=== PATIENT | male | born 1940 | race Caucasian/White ===

== ENCOUNTER 2021-08-04 14:23 | Inpatient (IN) | payer OTHER, MEDICARE ==
[2021-08-04] MEDS ORDERED: SODIUM CHLORIDE 0.9% 500 ML 500 ML IV STA (15:22)
--- NOTE | 2021-08-04 15:38 | ED ---
General Adult HPI - General Chief complaint: Weakness Stated complaint: weakness Source: patient, EMS, RN notes reviewed, old records reviewed Mode of arrival: EMS Limitations: no limitations - History of Present Illness Initial comments: 80-year-old male who had presented for evaluation of poor appetite, increased weakness. This is been present over the past one week. This history is obtained from the nurse and the paramedics taking care of this patient. Apparently he has been exposed to coronavirus. Patient himself denies complaints. No chest pain or abdominal pain. No vomiting or diarrhea. - Related Data Home Medications Medication Instructions Recorded Confirmed Aspirin EC [Ecotrin] 325 mg PO DAILY 10/15/14 08/04/21 Finasteride [Proscar] 5 mg PO DAILY 10/15/14 08/04/21 Lovastatin [Mevacor] 40 mg PO HS 10/15/14 08/04/21 Cholecalciferol [Vitamin D3 (25 25 mcg PO DAILY 08/04/21 08/04/21 Mcg = 1000 Iu)] Divalproex ER [Depakote ER] 500 mg PO HS 08/04/21 08/04/21 Donepezil HCl [Aricept] 10 mg PO HS 08/04/21 08/04/21 Allergies Allergy/AdvReac Type Severity Reaction Status Date / Time No Known Allergies Allergy Verified 08/04/21 16:21 Review of Systems ROS Statement: Those systems with pertinent positive or pertinent negative responses have been documented in the HPI. ROS Other: All systems not noted in ROS Statement are negative. Past Medical History Past Medical History: Hyperlipidemia, Prostate Disorder History of Any Multi-Drug Resistant Organisms: None Reported Additional Past Surgical History / Comment(s): bilateral foot surgery Past Psychological History: No Psychological Hx Reported Smoking Status: Never smoker Past Alcohol Use History: None Reported Past Drug Use History: None Reported General Exam Limitations: no limitations General appearance: alert, in no apparent distress Head exam: Present: atraumatic, normocephalic Eye exam: Present: normal appearance, PERRL ENT exam: Present: normal exam Neck exam: Present: normal inspection. Absent: meningismus Respiratory exam: Present: normal lung sounds bilaterally. Absent: respiratory distress, wheezes Cardiovascular Exam: Present: regular rate, normal rhythm GI/Abdominal exam: Present: soft. Absent: distended, tenderness, guarding Extremities exam: Present: normal inspection, normal capillary refill. Absent: pedal edema, calf tenderness Neurological exam: Present: alert. Absent: motor sensory deficit Psychiatric exam: Present: normal affect, normal mood Skin exam: Present: warm, dry, intact. Absent: cyanosis, diaphoretic Course Vital Signs 08/04/21 08/04/21 14:24 15:33 Temperature 98.2 F Pulse Rate 75 67 Respiratory 18 18 Rate Blood Pressure 141/77 137/77 O2 Sat by Pulse 98 96 Oximetry EKG Findings - EKG Comments: EKG Findings:: EKG: Normal sinus rhythm, rate of 74, SC interval 178, QRS duration 96, QTC 455, no ST segment elevation. Medical Decision Making - Medical Decision Making 80-year-old male with generalized weakness, fatigue, positive contact with coronavirus. Patient does test positive for coronavirus. I will infuse monoclonal antibodies for this patient. He is on room air without respiratory distress. He does not have anyone at home. Care for him currently. He will be placed in observation awaiting ultimate disposition for this patient with dementia, generalized weakness and inability to care for himself. Case discussed with Dr. Amaro who will admit. - Lab Data Result diagrams: 08/04/21 15:42 08/04/21 15:42 Lab Results 08/04/21 08/04/21 08/04/21 Range/Units 15:42 15:42 15:42 WBC 5.4 (3.8-10.6) k/uL RBC 4.13 L (4.30-5.90) m/uL Hgb 12.9 L (13.0-17.5) gm/dL Hct 38.8 L (39.0-53.0) % MCV 93.9 (80.0-100.0) fL MCH 31.3 (25.0-35.0) pg MCHC 33.3 (31.0-37.0) g/dL RDW 12.6 (11.5-15.5) % Plt Count 256 (150-450) k/uL MPV 7.7 Neutrophils % 71 % Lymphocytes % 19 % Monocytes % 6 % Eosinophils % 0 % Basophils % 1 % Neutrophils # 3.9 (1.3-7.7) k/uL Lymphocytes # 1.0 (1.0-4.8) k/uL Monocytes # 0.3 (0-1.0) k/uL Eosinophils # 0.0 (0-0.7) k/uL Basophils # 0.0 (0-0.2) k/uL PT 10.5 (9.0-12.0) sec INR 1.0 (<1.2) APTT 27.6 (22.0-30.0) sec Sodium 135 L (137-145) mmol/L Potassium 4.4 (3.5-5.1) mmol/L Chloride 103 (98-107) mmol/L Carbon Dioxide 23 (22-30) mmol/L Anion Gap 9 mmol/L BUN 28 H (9-20) mg/dL Creatinine 0.83 (0.66-1.25) mg/dL Est GFR (CKD-EPI)AfAm >90 (>60 ml/min/1.73 sqM) Est GFR (CKD-EPI)NonAf 84 (>60 ml/min/1.73 sqM) Glucose 84 (74-99) mg/dL Plasma Lactic Acid Tawanda (0.7-2.0) mmol/L Calcium 7.9 L (8.4-10.2) mg/dL Magnesium 2.2 (1.6-2.3) mg/dL Total Bilirubin 0.5 (0.2-1.3) mg/dL AST 40 (17-59) U/L ALT 19 (4-49) U/L Alkaline Phosphatase 56 (38-126) U/L Troponin I (0.000-0.034) ng/mL Total Protein 5.9 L (6.3-8.2) g/dL Albumin 3.0 L (3.5-5.0) g/dL Coronavirus (PCR) (Not Detectd) 08/04/21 08/04/21 08/04/21 Range/Units 15:42 15:42 15:42 WBC (3.8-10.6) k/uL RBC (4.30-5.90) m/uL Hgb (13.0-17.5) gm/dL Hct (39.0-53.0) % MCV (80.0-100.0) fL MCH (25.0-35.0) pg MCHC (31.0-37.0) g/dL RDW (11.5-15.5) % Plt Count (150-450) k/uL MPV Neutrophils % % Lymphocytes % % Monocytes % % Eosinophils % % Basophils % % Neutrophils # (1.3-7.7) k/uL Lymphocytes # (1.0-4.8) k/uL Monocytes # (0-1.0) k/uL Eosinophils # (0-0.7) k/uL Basophils # (0-0.2) k/uL PT (9.0-12.0) sec INR (<1.2) APTT (22.0-30.0) sec Sodium (137-145) mmol/L Potassium (3.5-5.1) mmol/L Chloride (98-107) mmol/L Carbon Dioxide (22-30) mmol/L Anion Gap mmol/L BUN (9-20) mg/dL Creatinine (0.66-1.25) mg/dL Est GFR (CKD-EPI)AfAm (>60 ml/min/1.73 sqM) Est GFR (CKD-EPI)NonAf (>60 ml/min/1.73 sqM) Glucose (74-99) mg/dL Plasma Lactic Acid Tawanda 1.1 (0.7-2.0) mmol/L Calcium (8.4-10.2) mg/dL Magnesium (1.6-2.3) mg/dL Total Bilirubin (0.2-1.3) mg/dL AST (17-59) U/L ALT (4-49) U/L Alkaline Phosphatase (38-126) U/L Troponin I <0.012 (0.000-0.034) ng/mL Total Protein (6.3-8.2) g/dL Albumin (3.5-5.0) g/dL Coronavirus (PCR) Detected A (Not Detectd) Disposition Clinical Impression: Dehydration, COVID-19 Disposition: ADMITTED IP TO THIS [facility] Condition: Stable Is patient prescribed a controlled substance at d/c from ED?: No Referrals: Rm Patel DO [Primary Care Provider] - 1-2 days Decision to Admit Reason: Admit from [facility] Decision Date: 08/04/21 Decision Time: 17:01
[2021-08-04 15:52] LABS: Basophils % (A) 1 %; Eosinophils % (A) 0 %; HCT 38.8 % (39.0-53.0); HGB 12.9 gm/dL (13.0-17.5); Lymphocytes % (A) 19 %; MCH 31.3 pg (25.0-35.0); MCHC 33.3 g/dL (31.0-37.0); MCV 93.9 fL (80.0-100.0); Mean Platelet Volume 7.7; Monocytes # (A) 0.3 k/uL (0-1.0); Monocytes % (A) 6 %; Neutrophils # (A) 3.9 k/uL (1.3-7.7); Neutrophils % (A) 71 %; Platelet Count 256 k/uL (150-450); RBC 4.13 m/uL (4.30-5.90); RDW 12.6 % (11.5-15.5); WBC 5.4 k/uL (3.8-10.6)
--- NOTE | 2021-08-04 15:55 | XR ---
EXAMINATION TYPE: XR chest 2V DATE OF EXAM: 08/04/2021 COMPARISON: Chest x-ray February 04, 2015 HISTORY: Weakness. TECHNIQUE: Frontal and lateral views of the chest are obtained. FINDINGS: There is some reticular interstitial prominence bilaterally. No suspicious pleural effusio n or pneumothorax seen. Faint increased opacities in the periphery right midlung and bibasilar region noted. The cardiac silhouette size is mildly enlarged. The osseous structures are intact. IMPRESSION: Mild cardiomegaly with new mild interstitial prominence. Cannot exclude mild interstitia l edema. New Faint opacities in the lung bases and periphery right midlung raise concern for covid-19 infection in the current environment. Correlate clinically.
[2021-08-04 16:03] LABS: ALT 19 U/L (4-49); AST 40 U/L (17-59); African American GFR (CKD) >90 (>60 ml/min/1.73 sqM); Alkaline Phosphatase 56 U/L (38-126); Anion Gap 9 mmol/L; Blood Urea Nitrogen 28 mg/dL (9-20); Calcium 7.9 mg/dL (8.4-10.2); Carbon Dioxide 23 mmol/L (22-30); Chloride 103 mmol/L (98-107); Glucose 84 mg/dL (74-99); Magnesium 2.2 mg/dL (1.6-2.3); Non-African American GFR(CKD) 84 (>60 ml/min/1.73 sqM); Partial Thromboplastin Time 27.6 sec (22.0-30.0); Potassium 4.4 mmol/L (3.5-5.1); Prothrombin Time 10.5 sec (9.0-12.0); Sodium 135 mmol/L (137-145); Total Bilirubin 0.5 mg/dL (0.2-1.3); Total Protein 5.9 g/dL (6.3-8.2)
[2021-08-04] MEDS ORDERED: NALOXONE 0.4 MG/ML 1 ML VIAL IV PRN (16:58)
[2021-08-04] MEDS ORDERED: ACETAMINOPHEN TAB 325 MG TAB PO PRN (16:58)
[2021-08-04 17:12] LABS: Appearance,Urine Clear (Clear); Bilirubin,Urine Negative (Negative); Blood,Urine Trace (Negative); Color,Urine Yellow; Glucose,Urine (UA) Negative (Negative); Hyaline Casts,Urine 1 /lpf (0-2); Ketones,Urine 2+ (Negative); Leukocyte Esterase,Urine Negative (Negative); Mucus,Urine Many /hpf; Nitrite,Urine Negative (Negative); PH, Urine 5.5 (5.0-8.0); Protein,Urine 1+ (Negative); RBC,Urine 3 /hpf (0-5); Specific Gravity,Urine 1.035 (1.001-1.035); Squamous Epithelial Cell,Urine <1 /hpf (0-4); WBC,Urine 6 /hpf (0-5)
[2021-08-04] MEDS ORDERED: SODIUM CHLORIDE 0.9% 50 ML IVPB ONE (17:30)
[2021-08-04] MEDS ORDERED: CASIRIVIMAB/IMDEVIMAB (EUA) 1,200 MG in SODIUM CHLORIDE 0.9% 100 ML IVPB ONE (17:30)
[2021-08-04] MEDS: SODIUM CHLORIDE 0.9% 1,000 ML IV SCH (18:31)
[2021-08-04] MEDS: DIVALPROEX ER 500 MG TAB.ER.24H PO SCH (21:21)
[2021-08-04] MEDS: ATORVASTATIN 10 MG TAB PO SCH (21:21)
[2021-08-04] MEDS: DONEPEZIL 10 MG TAB PO SCH (21:21)
[2021-08-04] MEDS ORDERED: QUEtiapine 25 MG TAB PO STA (23:32)
[2021-08-05] MEDS ORDERED: HALOPERIDOL LACTATE 5 MG/ML 1 ML VIAL IM STA ×2 (01:45→03:40)
[2021-08-05] MEDS: SODIUM CHLORIDE 0.9% 1,000 ML IV SCH ×2 (06:34→16:16)
--- NOTE | 2021-08-05 15:47 | P.HPIM ---
History of Present Illness 80-year-old male with with advanced dementia was brought in because of generalized weakness. Patient the is not requiring oxygen but. Is found to have COVID-19 positive patient's family members are all positive for Covid 19 I'm unable to get any History from the patient. Patient doesn't have any fever chills patient is completely confused alert oriented 1. Although regarding code perspective patient doesn't need to stay in hospital unfortunately patient cannot take care of himself at home and all his family members are sick and hospitalized and there is no one else to take care of this patient. 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 REVIEW OF SYSTEMS: Unable to obtain due to his clinical condition PHYSICAL EXAMINATION: GENERAL: The patient is alert and oriented x1, not in any acute distress. Well developed, well nourished. HEENT: Pupils are round and equally reacting to light. EOMI. No scleral icterus. No conjunctival pallor. Normocephalic, atraumatic. No pharyngeal erythema. No thyromegaly. CARDIOVASCULAR: S1 and S2 present. No murmurs, rubs, or gallops. PULMONARY: Chest is clear to auscultation, no wheezing or crackles. ABDOMEN: Soft, nontender, nondistended, normoactive bowel sounds. No palpable organomegaly. MUSCULOSKELETAL: No joint swelling or deformity. EXTREMITIES: No cyanosis, clubbing, or pedal edema. NEUROLOGICAL: Generalized weakness and dementia confused this is his baseline SKIN: No rashes. Assessment and plan -Generalized weakness unable to take care of himself at home: PT and OT will evaluate the patient's transition social worker will evaluate the home situation. -Covid 19 pneumonia patient is currently not hypoxic will not require any systemic steroids patient will be started on Covid vitamins although chest x- ray did show pneumonia. Patient did receive monoclonal antibody infusion -Benign prostatic hypertrophy -Hyperlipidemia -Dementia appears to be advanced either Alzheimer's or vascular dementia DVT prophylaxis: Lovenox Past Medical History Past Medical History: Hyperlipidemia, Prostate Disorder History of Any Multi-Drug Resistant Organisms: None Reported Additional Past Surgical History / Comment(s): bilateral foot surgery Past Psychological History: No Psychological Hx Reported Smoking Status: Former smoker Past Alcohol Use History: None Reported Additional Past Alcohol Use History / Comment(s): Pt states he smoked over 40 years ago. Past Drug Use History: None Reported Medications and Allergies Home Medications Medication Instructions Recorded Confirmed Type Aspirin EC [Ecotrin] 325 mg PO DAILY 10/15/14 08/04/21 History Finasteride [Proscar] 5 mg PO DAILY 10/15/14 08/04/21 History Lovastatin [Mevacor] 40 mg PO HS 10/15/14 08/04/21 History Cholecalciferol [Vitamin D3 (25 25 mcg PO DAILY 08/04/21 08/04/21 History Mcg = 1000 Iu)] Divalproex ER [Depakote ER] 500 mg PO HS 08/04/21 08/04/21 History Donepezil HCl [Aricept] 10 mg PO HS 08/04/21 08/04/21 History Allergies Allergy/AdvReac Type Severity Reaction Status Date / Time No Known Allergies Allergy Verified 08/04/21 16:21 Physical Exam Vitals: Vital Signs Temp Pulse Pulse Resp BP BP BP 08/05/21 07:00 99.5 F 90 20 151/78 08/05/21 02:00 98.9 F 84 18 136/74 08/05/21 00:55 19 08/04/21 20:00 98.4 F 72 19 143/70 08/04/21 19:48 20 08/04/21 19:11 98.9 F 68 20 136/82 Pulse Ox 08/05/21 07:00 93 L 08/05/21 02:00 94 L 08/05/21 00:55 08/04/21 20:00 95 08/04/21 19:48 08/04/21 19:11 98 Intake and Output 08/05/21 08/05/21 08/05/21 06:59 14:59 22:59 Other: Voiding Method Toilet Toilet Urinal Urinal # Voids 1 # Bowel Movements 1 Results CBC & Chem 7: 08/04/21 15:42 08/04/21 15:42 Labs: Abnormal Lab Results - Last 24 Hours (Table) 08/04/21 08/04/21 08/04/21 Range/Units 15:42 15:42 15:42 RBC 4.13 L (4.30-5.90) m/uL Hgb 12.9 L (13.0-17.5) gm/dL Hct 38.8 L (39.0-53.0) % Sodium 135 L (137-145) mmol/L BUN 28 H (9-20) mg/dL Calcium 7.9 L (8.4-10.2) mg/dL Total Protein 5.9 L (6.3-8.2) g/dL Albumin 3.0 L (3.5-5.0) g/dL Urine Protein 1+ H (Negative) Urine Ketones 2+ H (Negative) Urine Blood Trace H (Negative) Urine WBC 6 H (0-5) /hpf Urine Mucus Many H (None) /hpf Coronavirus (PCR) (Not Detectd) 08/04/21 Range/Units 15:42 RBC (4.30-5.90) m/uL Hgb (13.0-17.5) gm/dL Hct (39.0-53.0) % Sodium (137-145) mmol/L BUN (9-20) mg/dL Calcium (8.4-10.2) mg/dL Total Protein (6.3-8.2) g/dL Albumin (3.5-5.0) g/dL Urine Protein (Negative) Urine Ketones (Negative) Urine Blood (Negative) Urine WBC (0-5) /hpf Urine Mucus (None) /hpf Coronavirus (PCR) Detected A (Not Detectd) Thrombosis Risk Factor Assmnt - Choose All That Apply Each Factor Represents 1 point: Obesity (BMI >25) Each Risk Factor Represents 3 Points: Age 75 years or older Thrombosis Risk Factor Assessment Total Risk Factor Score: 4 Thrombosis Risk Factor Assessment Level: Moderate Risk
[2021-08-05] MEDS: ASCORBIC ACID 500 MG TAB PO SCH (20:54)
[2021-08-05] MEDS: DIVALPROEX ER 500 MG TAB.ER.24H PO SCH (20:54)
[2021-08-05] MEDS: ATORVASTATIN 10 MG TAB PO SCH (20:54)
[2021-08-05] MEDS: DONEPEZIL 10 MG TAB PO SCH (20:54)
[2021-08-05] MEDS: QUEtiapine 25 MG TAB PO PRN (20:55)
[2021-08-06] MEDS: ASPIRIN 325 MG TAB PO SCH (08:41)
[2021-08-06] MEDS: CHOLECALCIFEROL 25 MCG (1000 IU) TABLET PO SCH (08:41)
[2021-08-06] MEDS: ASCORBIC ACID 500 MG TAB PO SCH ×2 (08:42→21:40)
[2021-08-06] MEDS: FINASTERIDE 5 MG TAB PO SCH (08:42)
[2021-08-06] MEDS: ENOXAPARIN 40 MG/0.4 ML SYRINGE SQ SCH (08:42)
[2021-08-06] MEDS: ZINC SULFATE 220 MG CAP PO SCH (08:42)
[2021-08-06] MEDS: SODIUM CHLORIDE 0.9% 1,000 ML IV SCH ×2 (08:43→22:20)
--- NOTE | 2021-08-06 12:01 | P.PN ---
Subjective Progress Note Date: 08/06/21 80-year-old male with with advanced dementia was brought in because of generalized weakness. Patient the is not requiring oxygen but. Is found to have COVID-19 positive patient's family members are all positive for Covid 19 I'm unable to get any History from the patient. Patient doesn't have any fever chills patient is completely confused alert oriented 1. Although regarding code perspective patient doesn't need to stay in hospital unfortunately patient cannot take care of himself at home and all his family members are sick and hospitalized and there is no one else to take care of this patient. 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 08/06/2021 Patient is evaluated today resting in the bed. He denies any shortness of breath or cough. He is alert times person and place however he is unable to state the time. He does note that he came into the hospital because a Covid infection. There are no labs available for today, we will recheck in the morning. He is afebrile, blood pressure 165/85 he is 93% on room air. He is 81 heart rate sinus rhythm. There is no wheezing noted on examination patient does not appear to be in any acute distress. REVIEW OF SYSTEMS: Unable to obtain full review of systems PHYSICAL EXAMINATION: GENERAL: The patient is alert and oriented x2, not in any acute distress. Well developed, well nourished. HEENT: Pupils are round and equally reacting to light. EOMI. No scleral icterus. No conjunctival pallor. Normocephalic, atraumatic. No pharyngeal erythema. No thyromegaly. CARDIOVASCULAR: S1 and S2 present. No murmurs, rubs, or gallops. PULMONARY: Chest is clear to auscultation, no wheezing or crackles. ABDOMEN: Soft, nontender, nondistended, normoactive bowel sounds. No palpable organomegaly. MUSCULOSKELETAL: No joint swelling or deformity. EXTREMITIES: No cyanosis, clubbing, or pedal edema. NEUROLOGICAL: Generalized weakness and dementia confused this is his baseline SKIN: No rashes. Assessment and plan -Generalized weakness unable to take care of himself at home: PT and OT will evaluate the patient's social services technician will evaluate the home situation. -Covid 19 pneumonia patient is currently not hypoxic, Patient did receive monoclonal antibody infusion. Chest xray did show pneumonia consistent with COVID-19 pneumonia. -Benign prostatic hypertrophy -Hyperlipidemia -Dementia appears to be advanced either Alzheimer's or vascular dementia DVT prophylaxis: Lovenox Objective - Vital Signs Vital signs: Vital Signs Temp 97.5 F L 08/06/21 07:00 Pulse 81 08/06/21 07:00 Resp 18 08/06/21 07:00 BP 165/85 08/06/21 07:00 Pulse Ox 93 L 08/06/21 07:00 Intake & Output 08/05/21 08/06/21 08/06/21 18:59 06:59 18:59 Intake Total 118 Balance 118 Intake: Oral 118 Other: Voiding Method Toilet Toilet Urinal Diaper # Voids 20 5 1 - Labs CBC & Chem 7: 08/04/21 15:42 08/04/21 15:42 Assessment and Plan Time with Patient: Greater than 30
[2021-08-06] MEDS: ATORVASTATIN 10 MG TAB PO SCH (21:40)
[2021-08-06] MEDS: DIVALPROEX ER 500 MG TAB.ER.24H PO SCH (21:40)
[2021-08-06] MEDS: QUEtiapine 25 MG TAB PO PRN (21:41)
[2021-08-06] MEDS: DONEPEZIL 10 MG TAB PO SCH (21:41)
[2021-08-07 04:13] VITALS: RESP 16; TEMP 97.6
[2021-08-07 06:26] LABS: Potassium 4.1 mmol/L (3.5-5.1)
[2021-08-07 06:27] LABS: African American GFR (CKD) >90 (>60 ml/min/1.73 sqM); Anion Gap 6 mmol/L; Blood Urea Nitrogen 29 mg/dL (9-20); Calcium 8.4 mg/dL (8.4-10.2); Carbon Dioxide 23 mmol/L (22-30); Chloride 113 mmol/L (98-107); Glucose 98 mg/dL (74-99); Non-African American GFR(CKD) 83 (>60 ml/min/1.73 sqM); Sodium 142 mmol/L (137-145)
[2021-08-07] MEDS: ASPIRIN 325 MG TAB PO SCH (08:12)
[2021-08-07] MEDS: CHOLECALCIFEROL 25 MCG (1000 IU) TABLET PO SCH (08:13)
[2021-08-07] MEDS: ASCORBIC ACID 500 MG TAB PO SCH (08:13)
[2021-08-07] MEDS: ENOXAPARIN 40 MG/0.4 ML SYRINGE SQ SCH (08:13)
[2021-08-07] MEDS: ZINC SULFATE 220 MG CAP PO SCH (08:13)
[2021-08-07] MEDS: FINASTERIDE 5 MG TAB PO SCH (08:13)
--- NOTE | 2021-08-07 08:29 | XR ---
EXAMINATION TYPE: XR chest 2V DATE OF EXAM: 08/07/2021 COMPARISON: 08/04/2021 TECHNIQUE: PA and lateral views submitted. HISTORY: Shortness of breath FINDINGS: Coarsened interstitium. Mild hyperinflation correlate for COPD. No pleural effusion or pneumothorax. Heart size normal. Atherosclerotic change aorta. Arthropathy of the shoulders. 8mm nodule right upper lobe. IMPRESSION: 1. COPD correlate for chronic interstitial lung disease. 2. 8 mm nodule right upper lobe CT of the chest recommended exclude neoplasm. 3. Increased attenuation along the posterior margin of the lungs on the lateral view could be technic al related to positioning with no definite infiltrate seen on the frontal view. This could also be co rrelated with CT scan.
[2021-08-07 08:38] VITALS: BP 157/88; PULSE 77
[2021-08-07 09:02] LABS: HCT 39.6 % (39.6-50.0); HGB 12.2 g/dL (13.0-17.0); MCH 29.7 pg (27.0-32.0); MCHC 30.8 g/dL (32.0-37.0); MCV 96.4 fL (80.0-97.0); Mean Platelet Volume 10.1 fL (9.5-12.2); Platelet Count 356 X 10*3/uL (140-440); RBC 4.11 X 10*6/uL (4.40-5.60); RDW 14.3 % (11.5-14.5); WBC 8.23 X 10*3/uL (4.50-10.00)
[2021-08-07 10:57] LABS: Basophils # (A) 0.02 X 10*3/uL (0.00-0.10); Basophils % (A) 0.2 %; Eosinophils # (A) 0 X 10*3/uL (0.04-0.35); Eosinophils % (A) 0 %; Lymphocytes % (A) 18.2 %; Monocytes # (A) 0.84 X 10*3/uL (0.20-1.00); Monocytes % (A) 10.2 %; Neutrophils # (A) 5.82 X 10*3/uL (1.80-7.70); Neutrophils % (A) 70.8 %
--- NOTE | 2021-08-07 22:40 | P.DS ---
Providers Date of admission: 08/07/21 10:16 Attending physician: Yamilex Amaro [facility] Course: Final Diagnosis -Generalized weakness, PT/OT recommended home with homecare vs. [facility] -Covid 19 pneumonia patient is currently not hypoxic, Patient did receive monoclonal antibody infusion, maintaining oxygen saturation on room air -Benign prostatic hypertrophy -Hyperlipidemia -Dementia appears to be advanced either Alzheimer's or vascular dementia Discharge Disposition Patient lives with his , daughter and son in law, who all tested positive for COVID-19. Patients daughter was well enough and was wanting patient to be discharged home today if stable and will be available to provide 24/7 care. Patient was not vaccinated, we did discharge on appropriate COVID vitamins. He is alert and oritented x3 at the time of my exam today and was asking to be discharged home as well. Hospital Course This is a pleasant 80 year old male who presented to the with complaints of weakness and poor appetite which has been present over the past week. Patient was exposed to the coronavirus and his is also hospitalized. Patient tested positive for coronavirus in the , he received monoclonal antibody infusion. Patient is not vaccinated. He has maintained his oxygen saturation on room air with sats 96% and above. Patient does have a past medical history significant for dementia, hypperlipidemia, and prostate disorder, he is an xsmoker. PT/OT evaluted the patient and felt he could return home with homecare and 24/7 care. His daughter who lives with him was able to take him today. He had a chest xray in the [facility] which showed new faint opacities int he lung bases and periphery right midlung to raise concern for COVID 19 infection in the current environment. There is also cardiomegaly with new mild interstitial prominence, cannot exclude mild interstitial edema. Repeat chest xray shows COPD correlate for chronic interstitial lung diseae, an 8 mm nodule right upper lobe recommend follow up with chest CT which can be done outpatient, increased attenuation along the posterior margin of the lungs on the lateral view could be techincally related to positioning with no definite infiltrate seen on the frontal view. Labs show a WBC of 5.4 on admission, 8.23 on day 2, sodium was 135, it did improve to 142, and urinalysis was negative for infection. Patient has remained afebrile, heart rate sinus rhythm 77, blood pressure 157/88, and he is 96% on room air. 08/07/2021 Patient is alert and oriented x3 at the time of my examination. He is asking to go home. His is maintaining oxygen saturation and his lung sounds are clear to auscultation. Vital signs are stable today. Focal neurological examination is negative. Patient does have a history of dementia, we would like to discharge today home with his daughter. He will follow up in the office with PCP and we did recommend a follow up with pulmonology for the possible lung nodule found on chest xray. Please see medication reconciliation for a list of current medications. Thank you for allowing us to participate in the care of this patient. Patient Condition at Discharge: Fair Plan - Discharge Summary New Discharge Prescriptions: New Ascorbic Acid [Vitamin C] 500 mg PO BID #60 tab Zinc Sulfate [Orazinc] 220 mg PO DAILY #30 cap Continue Lovastatin [Mevacor] 40 mg PO HS Finasteride [Proscar] 5 mg PO DAILY Aspirin EC [Ecotrin] 325 mg PO DAILY Cholecalciferol [Vitamin D3 (25 Mcg = 1000 Iu)] 25 mcg PO DAILY Donepezil HCl [Aricept] 10 mg PO HS Divalproex ER [Depakote ER] 500 mg PO HS Discharge Medication List Aspirin EC [Ecotrin] 325 mg PO DAILY 10/15/14 [History] Finasteride [Proscar] 5 mg PO DAILY 10/15/14 [History] Lovastatin [Mevacor] 40 mg PO HS 10/15/14 [History] Cholecalciferol [Vitamin D3 (25 Mcg = 1000 Iu)] 25 mcg PO DAILY 08/04/21 [History] Divalproex ER [Depakote ER] 500 mg PO HS 08/04/21 [History] Donepezil HCl [Aricept] 10 mg PO HS 08/04/21 [History] Ascorbic Acid [Vitamin C] 500 mg PO BID #60 tab 08/07/21 [Rx] Zinc Sulfate [Orazinc] 220 mg PO DAILY #30 cap 08/07/21 [Rx] Follow up Appointment(s)/Referral(s): Rm Patel DO [Primary Care Provider] - 1-2 days Ernie Ndiaye DO [Doctor of Osteopathic Medicine] - 3 Weeks (needs follow up for 8mm nodule right upper lobe, follow up chest CT outpatient for possible neoplasm - positive COVID on 08/04/2021) Patient Instructions/Handouts: Coronavirus Disease 2019 (COVID-19) Activity/Diet/Wound Care/Special Instructions: Patient is to follow-up with pulmonary outpatient for a chest CT to follow-up for a long nodule found on chest x-ray. Discharge Disposition: HOME SELF-CARE
== END 2021-08-07 14:50 | disposition home health service (06) | DRG 177 ==
LOC: EC 14:23 → 6NMEDSUR 16:59 → OBSVTOIN 08-07 10:16
PROVIDERS: ADMIT Internal Medicine; ATTEND Internal Medicine
DX: U07.1 COVID-19 (principal); J12.82 Pneumonia due to coronavirus disease 2019; E78.5 Hyperlipidemia, unspecified; E86.0 Dehydration; F03.90 Unspecified dementia, unspecified severity, without behavioral disturbance, psychotic disturbance, mood disturbance, and anxiety; Z79.82 Long term (current) use of aspirin; Z79.899 Other long term (current) drug therapy; Z87.891 Personal history of nicotine dependence; N40.0 Benign prostatic hyperplasia without lower urinary tract symptoms; I51.7 Cardiomegaly
CPT/HCPCS: 36415; 71046; 80048; 80053; 81001; 83605; 83735; 84484; 85025; 85610; 85730; 87635; 93005; 99285

== ENCOUNTER 2022-03-02 10:41 | Day surgery (SDC) | payer MEDICARE, BC ==
--- NOTE | 2022-03-02 07:03 | P.GSHP ---
History of Present Illness H&P Date: 03/02/22 Chief Complaint: Urinary retention The patient is an 81-year-old white male with chronic urinary retention, managed with an indwelling Reyna catheter. 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 His catheter has become frequently occluded. Cystoscopy shows multiple bladder calculi. He now comes for cystolithotripsy. - Constitutional Constitutional: Denies chills, Denies fever - Genitourinary (Female) Genitourinary: Reports as per HPI Past Medical History Past Medical History: Hyperlipidemia, Prostate Disorder Additional Past Medical History / Comment(s): BOTH HIS HAS COVID IN THE FALL OF 2020 AND WENT TO [facility] FOR REHAB AND STILL RESIDES THERE. PATIENT IS ABLE TO SIGN HIS OWN CONSENT. History of Any Multi-Drug Resistant Organisms: None Reported Additional Past Surgical History / Comment(s): KIDNEY STONES. Bilateral foot surgery Past Psychological History: No Psychological Hx Reported Smoking Status: Former smoker Past Alcohol Use History: None Reported Additional Past Alcohol Use History / Comment(s): Pt states he smoked over 40 years ago. Past Drug Use History: None Reported - Past Family History Mother Family Medical History: Unable to Obtain Medications and Allergies Home Medications Medication Instructions Recorded Confirmed Type Aspirin EC [Ecotrin] 325 mg PO DAILY 10/15/14 02/26/22 History Lovastatin [Mevacor] 40 mg PO HS 10/15/14 02/26/22 History Cholecalciferol [Vitamin D3 (25 25 mcg PO DAILY 08/04/21 02/26/22 History Mcg = 1000 Iu)] Divalproex ER [Depakote ER] 500 mg PO HS 08/04/21 02/26/22 History Donepezil HCl [Aricept] 10 mg PO HS 08/04/21 02/26/22 History Magnesium Hydroxide [Milk of 1 dose PO DIRECTED PRN 02/26/22 02/26/22 History Magnesia] Multivitamins, Thera [Multivitamin 1 tab PO DAILY 02/26/22 02/26/22 History (formulary)] Sennosides [Senna] 1 tab PO DAILY 02/26/22 02/26/22 History Allergies Allergy/AdvReac Type Severity Reaction Status Date / Time No Known Allergies Allergy Verified 02/26/22 12:05 Surgical - Exam - General well developed, well nourished, no distress - Respiratory normal respiratory effort - Abdomen Abdomen: soft, non tender, no guarding, no rigid, no rebound - Genitourinary normal penis with no external lesions, testicles non-tender Assessment and Plan (1) Calculus in bladder Status: Acute Code(s): N21.0 - CALCULUS IN BLADDER SNOMED Code(s): 49889407 Plan: Cystoscopy with cystolithotripsy. The procedure then reviewed in detail with the patient and his . They have been made aware of potential risks, which include anesthesia, bleeding, infection, bladder perforation.
[~2022-03-02 10:41] MED LIST: DEXAMETHASONE SOD PHOSPHATE 4 MG/ML 1 ML VIAL IV ONE; LACTATED RINGERS 1,000 ML IV SCH; LIDOCAINE 1% (10MG/ML) FOR IV START INTRADERMA PRN; MORPHINE SULFATE 2 MG/ML SYRINGE IV PRN; ONDANSETRON 4 MG/2 ML VIAL IVP PRN
--- NOTE | 2022-03-02 11:11 | XR ---
EXAMINATION TYPE: XR KUB DATE OF EXAM: 03/02/2022 11:05 AM CLINICAL HISTORY: Renal calculi, side uncertain. TECHNIQUE: Two supine KUB images of the abdomen are obtained. COMPARISON: None. FINDINGS: Rounded and oval densities from central lower pelvis favor phleboliths. No definitive nephr olithiasis. Overall nonobstructive bowel gas pattern. Severe axial joint space loss left hip. Visualized lung bas es are clear. IMPRESSION: As above.
[2022-03-02 11:12] VITALS: TEMP 97.3
[2022-03-02] MEDS ORDERED: PROPOFOL 10 MG/ML 20 ML VIAL IV ONE (12:53)
[2022-03-02] MEDS ORDERED: LIDOCAINE 2% INJ 20 MG/ML (2 ML VIAL) ONE (12:53)
[2022-03-02] MEDS ORDERED: fentaNYL (PF) 50 MCG/ML 2 ML AMP ONE (12:53)
[2022-03-02] MEDS ORDERED: SUCCINYLCHOLINE CHLORIDE 100 MG/5 ML SYR IV ONE (12:53)
--- NOTE | 2022-03-02 13:56 | P.OP ---
Date of Procedure: 03/02/22 Preoperative Diagnosis: Bladder calculi Postoperative Diagnosis: Same Procedure(s) Performed: Cystoscopy with cystolithotripsy Anesthesia: ROSEMARY Surgeon: Gerard Crane Estimated Blood Loss (ml): 5 IV fluids (ml): 200 Pathology: other (Calculus fragments, sent for chemical analysis) Condition: stable Disposition: PACU Indications for Procedure: The patient is an 81-year-old white male with chronic urinary retention, managed with an indwelling Reyna catheter. 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 His catheter has become frequently occluded. Cystoscopy shows multiple bladder calculi. He now comes for cystolithotripsy. Operative Findings: Multiple bladder calculi measuring up to 1 cm in size, removed in their entirety. Description of Procedure: The patient was taken to the operating room and placed in the dorsal lithotomy position, with legs supported in Hilario stirrups. The external genitalia was prepped and draped sterilely. The 30 lens was used to introduce the 21-Danish Calderon cystoscopic sheath through the urethra and into the bladder under direct vision. The urethra appeared normal. The prostate showed evidence of lateral lobe enlargement consistent with the patient's age. The bladder was examined in its entirety. The ureteral orifices appeared normal. Approximately 10 calculi were seen. No tumors were seen. No diverticuli were seen. Using the 550 micron Holmium laser probe, lithotripsy was performed to fragment the larger calculi. Lithotripsy was continued until all calculus fragments could be removed through the cystoscope. Once this was completed, the bladder was inspected. There was no active bleeding, and no evidence of bladder perforation. An 18-Danish Reyna catheter was placed. The return was pink- tinged. The patient tolerated the procedure well was taken to the recovery room in stable condition.
[2022-03-02 14:44] VITALS: RESP 18
[2022-03-02 15:07] VITALS: BP 134/76; PULSE 64
== END 2022-03-02 15:40 ==
LOC: OR 10:41
PROVIDERS: ATTEND Urology
DX: N21.0 Calculus in bladder (principal); R33.9 Retention of urine, unspecified; E78.5 Hyperlipidemia, unspecified; Z86.16 Personal history of COVID-19; Z87.442 Personal history of urinary calculi; Z98.890 Other specified postprocedural states; Z87.891 Personal history of nicotine dependence; Z79.82 Long term (current) use of aspirin; Z79.899 Other long term (current) drug therapy; N40.0 Benign prostatic hyperplasia without lower urinary tract symptoms; G30.9 Alzheimer's disease, unspecified
CPT/HCPCS: 82365; 74018; 52317; J1100; J0690; J2405; J3010; J0330; J2704; J2001

== ENCOUNTER 2022-06-05 18:46 | Emergency (ER) | payer MEDICARE, BC ==
[2022-06-05 19:54] VITALS: TEMP 97.9
[2022-06-05] MEDS ORDERED: ACETAMINOPHEN TAB 500 MG TAB PO STA (22:08)
--- NOTE | 2022-06-05 22:15 | ED ---
General Adult HPI - General Chief complaint: Urogenital Stated complaint: Urinary blockage Time Seen by Provider: 06/05/22 22:00 Source: patient, RN notes reviewed, old records reviewed Mode of arrival: ambulatory Limitations: no limitations - History of Present Illness Initial comments: Patient is an 81-year-old male with past medical history remarkable for chronic urinary retention with a Mohan catheter in place, prostate disorder, hyperlipidemia who presents emergency Department with urinary catheter malfunction. Mohan catheter stopped draining at approximately noon today. Nothing has changed since then. Feels like he has to urinate. Describes some suprapubic distention and discomfort. Denies any fevers, chills, cough, sick contacts. Denies any nausea, vomiting, diarrhea. His no other acute complaints at this time. Presents for replacement of his Mohan catheter. - Related Data Home Medications Medication Instructions Recorded Confirmed Aspirin EC [Ecotrin] 325 mg PO DAILY 10/15/14 03/02/22 Lovastatin [Mevacor] 40 mg PO HS 10/15/14 03/02/22 Cholecalciferol [Vitamin D3 (25 25 mcg PO DAILY 08/04/21 02/26/22 Mcg = 1000 Iu)] Divalproex ER [Depakote ER] 500 mg PO HS 08/04/21 03/02/22 Donepezil HCl [Aricept] 10 mg PO HS 08/04/21 03/02/22 Magnesium Hydroxide [Milk of 1 dose PO DIRECTED PRN 02/26/22 02/26/22 Magnesia] Multivitamins, Thera [Multivitamin 1 tab PO DAILY 02/26/22 03/02/22 (formulary)] Sennosides [Senna] 1 tab PO DAILY 02/26/22 03/02/22 Previous Rx's Medication Instructions Recorded Sulfamethox-Tmp 800-160Mg [Bactrim 1 tab PO Q12HR 5 Days #10 tab 06/05/22 DS 800-160 mg] Allergies Allergy/AdvReac Type Severity Reaction Status Date / Time No Known Allergies Allergy Verified 06/05/22 19:54 Review of Systems ROS Statement: Those systems with pertinent positive or pertinent negative responses have been documented in the HPI. Review of Systems: CONST: Denies fever EYES: Denies blurry vision ENT: Denies nasal congestion C/V: Denies Chest pain RESP: Denies shortness of breath GI: Endorses suprapubic distention : Endorses urinary catheter malfunction. SKIN: Denies rash. MSK: Denies joint pain. NEURO: Denies headache ROS Other: All systems not noted in ROS Statement are negative. Past Medical History Past Medical History: Hyperlipidemia, Prostate Disorder Additional Past Medical History / Comment(s): BOTH HIS HAS COVID IN THE FALL OF 2020 AND WENT TO [facility] FOR REHAB AND STILL RESIDES THERE. PATIENT IS ABLE TO SIGN HIS OWN CONSENT. History of Any Multi-Drug Resistant Organisms: None Reported Additional Past Surgical History / Comment(s): KIDNEY STONES. Bilateral foot surgery Past Psychological History: No Psychological Hx Reported Smoking Status: Former smoker Past Alcohol Use History: None Reported Past Drug Use History: None Reported - Past Family History Mother Family Medical History: Unable to Obtain General Exam - General Exam Comments Initial Comments: General: Appears in mild distress secondary to Mohan catheter malfunction. HEAD: Normal with no signs of head trauma. EYES: EOMI ENT: Hearing grossly intact, normal oropharynx. RESPIRATORY: Clear breath sounds bilaterally. No wheezes, rales, or rhonchi. C/V: Regular rate and rhythm. S1 and S2 auscultated, no edema, peripheral pulses 2+ and intact throughout ABD: Abdomen soft, mild suprapubic distention and discomfort likely secondary to urinary retention due to Mohan catheter malfunction. Mohan catheter bag is empty. EXT: Normal range of motion, no obvious deformity SKIN: No rashes or lesions observed on exposed skin. NEURO: Alert and oriented 4. Limitations: no limitations Course Vital Signs 06/05/22 19:46 Temperature 97.9 F Pulse Rate 77 Respiratory 18 Rate Blood Pressure 194/93 O2 Sat by Pulse 99 Oximetry Medical Decision Making - Medical Decision Making Based on the patient's presentation and physical exam, I do believe he is having a mohan catheter malfunction. His no active drainage. We'll replace his Mohan catheter at this time. He was in agreement this plan. Vital signs within normal limits otherwise. Slightly hypertensive likely secondary to pain. New mohan catheter was ordered and I spoke with nursing staff who will replace it. Mohan catheter successfully replaced. Draining well. Patient will be discharged home at this time. Will follow-up with his PCP. He was in agreement with this plan. I instructed the patient to follow up with their PCP in the next 1-3 days. I explained that the patient should return to the emergency department if they experience any worsening symptoms. Strict return precautions were discussed with the patient. The patient expressed understanding of these instructions. I answered all questions that the patient had. The patient was discharged home in good condition with their prescriptions and follow up information. Disposition Clinical Impression: Mohan catheter problem Disposition: HOME SELF-CARE Condition: Good Instructions (If sedation given, give patient instructions): Mohan Catheter Placement and Care (ED) Prescriptions: Sulfamethox-Tmp 800-160Mg [Bactrim DS 800-160 mg] 1 tab PO Q12HR 5 Days #10 tab Is patient prescribed a controlled substance at d/c from ED?: No Referrals: Doug Barry MD [Primary Care Provider] - 1-2 days Time of Disposition: 22:43
[2022-06-05] MEDS ORDERED: SULFAMETHOX-TMP 800-160MG 1 EACH TAB PO STA (23:12)
[2022-06-05 23:18] VITALS: BP 154/88; PULSE 88; RESP 15
== END 2022-06-05 23:18 | disposition home or self-care (01) ==
LOC: EC 18:46
DX: T83.018A Breakdown (mechanical) of other urinary catheter, initial encounter (principal); E78.5 Hyperlipidemia, unspecified; Z87.891 Personal history of nicotine dependence; Z86.16 Personal history of COVID-19; Y84.6 Urinary catheterization as the cause of abnormal reaction of the patient, or of later complication, without mention of misadventure at the time of the procedure
CPT/HCPCS: 99282

== ENCOUNTER 2022-06-10 19:27 | Emergency (ER) | payer MEDICARE, BC ==
[2022-06-10 19:36] VITALS: BP 139/76; PULSE 76; RESP 16; TEMP 98
--- NOTE | 2022-06-10 19:43 | ED ---
General Adult HPI - General Chief complaint: Urogenital Stated complaint: Catheter issues Time Seen by Provider: 06/10/22 19:29 Source: patient, EMS, RN notes reviewed Mode of arrival: EMS Limitations: no limitations - History of Present Illness Initial comments: Patient is a pleasant 81-year-old male presenting to the emergency Department with Reyna catheter not emptying. Patient noticed this around 7 hours ago. Patient is starting to get some mild discomfort in the suprapubic region. Patient did have similar episode a week or so ago. No fever. No weakness. - Related Data Home Medications Medication Instructions Recorded Confirmed Aspirin EC [Ecotrin] 325 mg PO DAILY 10/15/14 03/02/22 Lovastatin [Mevacor] 40 mg PO HS 10/15/14 03/02/22 Cholecalciferol [Vitamin D3 (25 25 mcg PO DAILY 08/04/21 02/26/22 Mcg = 1000 Iu)] Divalproex ER [Depakote ER] 500 mg PO HS 08/04/21 03/02/22 Donepezil HCl [Aricept] 10 mg PO HS 08/04/21 03/02/22 Magnesium Hydroxide [Milk of 1 dose PO DIRECTED PRN 02/26/22 02/26/22 Magnesia] Multivitamins, Thera [Multivitamin 1 tab PO DAILY 02/26/22 03/02/22 (formulary)] Sennosides [Senna] 1 tab PO DAILY 02/26/22 03/02/22 Previous Rx's Medication Instructions Recorded Sulfamethox-Tmp 800-160Mg [Bactrim 1 tab PO Q12HR 5 Days #10 tab 06/05/22 DS 800-160 mg] Allergies Allergy/AdvReac Type Severity Reaction Status Date / Time No Known Allergies Allergy Verified 06/05/22 19:54 Review of Systems ROS Statement: Those systems with pertinent positive or pertinent negative responses have been documented in the HPI. ROS Other: All systems not noted in ROS Statement are negative. Constitutional: Denies: fever Eyes: Denies: eye pain ENT: Denies: ear pain Respiratory: Denies: cough Cardiovascular: Denies: chest pain Endocrine: Denies: fatigue Gastrointestinal: Reports: as per HPI Genitourinary: Reports: as per HPI Musculoskeletal: Denies: back pain Skin: Denies: rash Neurological: Denies: weakness Past Medical History Past Medical History: Hyperlipidemia, Prostate Disorder Additional Past Medical History / Comment(s): BOTH HIS HAS COVID IN THE FALL OF 2020 AND WENT TO [facility] FOR REHAB AND STILL RESIDES THERE. PATIENT IS ABLE TO SIGN HIS OWN CONSENT. History of Any Multi-Drug Resistant Organisms: None Reported Additional Past Surgical History / Comment(s): KIDNEY STONES. Bilateral foot surgery Past Psychological History: No Psychological Hx Reported Smoking Status: Former smoker Past Alcohol Use History: None Reported Past Drug Use History: None Reported - Past Family History Mother Family Medical History: Unable to Obtain General Exam Limitations: no limitations General appearance: alert, in no apparent distress Head exam: Present: normocephalic Eye exam: Present: normal appearance Neck exam: Present: normal inspection Respiratory exam: Present: normal lung sounds bilaterally Cardiovascular Exam: Present: regular rate, normal rhythm GI/Abdominal exam: Present: soft. Absent: tenderness exam: Present: normal inspection, other (Reyna catheter in place) Neurological exam: Present: alert Psychiatric exam: Present: normal affect, normal mood Skin exam: Present: normal color Course Vital Signs 06/10/22 19:30 Temperature 98 F Pulse Rate 76 Respiratory 16 Rate Blood Pressure 139/76 O2 Sat by Pulse 99 Oximetry Medical Decision Making - Medical Decision Making Patient reevaluated and feeling much better following Reyna catheter placement. Disposition Clinical Impression: Reyna catheter problem Disposition: HOME SELF-CARE Condition: Stable Instructions (If sedation given, give patient instructions): Reyna Catheter Placement and Care (ED) Additional Instructions: Please call [employer] at [phone]. Please do follow-up with primary care physician in the next day or 2 for recheck, number provided. Please also follow-up with urology, number provided. Return for urine not passing, pain, fever, worsening symptoms or other concerns. Is patient prescribed a controlled substance at d/c from ED?: No Referrals: Doug Barry MD [Primary Care Provider] - 1-2 days Nicholas Guevara MD [REFERRING] - 1-2 days Gerard Crane MD [STAFF PHYSICIAN] - 1-2 days Time of Disposition: 21:46
== END 2022-06-10 22:01 | disposition home or self-care (01) ==
LOC: EC 19:27
DX: T83.091A Other mechanical complication of indwelling urethral catheter, initial encounter (principal); E78.5 Hyperlipidemia, unspecified; Z87.891 Personal history of nicotine dependence; Z79.82 Long term (current) use of aspirin
CPT/HCPCS: 99283

== ENCOUNTER 2022-06-16 22:36 | Emergency (ER) | payer MEDICARE, BC ==
[2022-06-16 23:47] VITALS: TEMP 98.2
--- NOTE | 2022-06-17 02:11 | ED ---
General Adult HPI - General Chief complaint: Urogenital Stated complaint: Cath Issues Time Seen by Provider: 06/16/22 23:59 Source: patient, RN notes reviewed, old records reviewed Mode of arrival: ambulatory Limitations: no limitations - History of Present Illness Initial comments: 81-year-old male presents with occluded Reyna catheter. Patient has had previous issues in the past. He's was unable to flush the catheter at home. He has no abdominal pain, no vomiting, no fever. - Related Data Home Medications Medication Instructions Recorded Confirmed Aspirin EC [Ecotrin] 325 mg PO DAILY 10/15/14 03/02/22 Lovastatin [Mevacor] 40 mg PO HS 10/15/14 03/02/22 Cholecalciferol [Vitamin D3 (25 25 mcg PO DAILY 08/04/21 02/26/22 Mcg = 1000 Iu)] Divalproex ER [Depakote ER] 500 mg PO HS 08/04/21 03/02/22 Donepezil HCl [Aricept] 10 mg PO HS 08/04/21 03/02/22 Magnesium Hydroxide [Milk of 1 dose PO DIRECTED PRN 02/26/22 02/26/22 Magnesia] Multivitamins, Thera [Multivitamin 1 tab PO DAILY 02/26/22 03/02/22 (formulary)] Sennosides [Senna] 1 tab PO DAILY 02/26/22 03/02/22 Previous Rx's Medication Instructions Recorded Sulfamethox-Tmp 800-160Mg [Bactrim 1 tab PO Q12HR 5 Days #10 tab 06/05/22 DS 800-160 mg] Allergies Allergy/AdvReac Type Severity Reaction Status Date / Time No Known Allergies Allergy Verified 06/16/22 23:43 Review of Systems ROS Statement: Those systems with pertinent positive or pertinent negative responses have been documented in the HPI. ROS Other: All systems not noted in ROS Statement are negative. Past Medical History Past Medical History: Hyperlipidemia, Prostate Disorder Additional Past Medical History / Comment(s): BOTH HIS HAS COVID IN THE FALL OF 2020 AND WENT TO [facility] FOR REHAB AND STILL RESIDES THERE. PATIENT IS ABLE TO SIGN HIS OWN CONSENT. History of Any Multi-Drug Resistant Organisms: None Reported Additional Past Surgical History / Comment(s): KIDNEY STONES. Bilateral foot surgery Past Psychological History: No Psychological Hx Reported Smoking Status: Former smoker Past Alcohol Use History: None Reported Past Drug Use History: None Reported - Past Family History Mother Family Medical History: Unable to Obtain General Exam Limitations: no limitations General appearance: alert, in no apparent distress Head exam: Present: atraumatic, normocephalic Eye exam: Present: normal appearance, PERRL ENT exam: Present: normal exam Neck exam: Present: normal inspection. Absent: tenderness, meningismus Respiratory exam: Present: normal lung sounds bilaterally. Absent: respiratory distress, wheezes Cardiovascular Exam: Present: regular rate, normal rhythm GI/Abdominal exam: Present: soft. Absent: distended, tenderness Extremities exam: Present: normal inspection, normal capillary refill. Absent: pedal edema Neurological exam: Present: alert, oriented X3, CN II-XII intact. Absent: motor sensory deficit Psychiatric exam: Present: normal affect, normal mood Skin exam: Present: warm, dry, intact Course Vital Signs 06/16/22 23:44 Temperature 98.2 F Pulse Rate 81 Respiratory 16 Rate Blood Pressure 144/77 O2 Sat by Pulse 98 Oximetry Medical Decision Making - Medical Decision Making post catheter exchange in the emergency department, patient is producing clear urine. No complaints. Disposition Clinical Impression: Reyna catheter problem Disposition: HOME SELF-CARE Condition: Good Instructions (If sedation given, give patient instructions): Reyna Catheter Placement and Care (ED) Is patient prescribed a controlled substance at d/c from ED?: No Referrals: [facility],Clinic [Primary Care Provider] - 1-2 days Time of Disposition: 02:11
[2022-06-17 02:18] VITALS: BP 133/78; PULSE 69; RESP 15
== END 2022-06-17 02:18 | disposition home or self-care (01) ==
LOC: EC 22:36
DX: T83.091A Other mechanical complication of indwelling urethral catheter, initial encounter (principal); E78.5 Hyperlipidemia, unspecified; Z86.16 Personal history of COVID-19; Z87.891 Personal history of nicotine dependence; Y84.6 Urinary catheterization as the cause of abnormal reaction of the patient, or of later complication, without mention of misadventure at the time of the procedure
CPT/HCPCS: 99282

== ENCOUNTER 2022-06-29 01:09 | Emergency (ER) | payer MEDICARE, BC ==
--- NOTE | 2022-06-29 01:15 | ED ---
Male Urogenital HPI - General Stated complaint: Urinary Retention Time Seen by Provider: 06/29/22 01:10 Source: RN notes reviewed - History of Present Illness Initial comments: This is a pleasant 81-year-old male presents via EMS for malfunctioning Reyna catheter. Patient has had an indwelling catheter for the last several months. Patient has had several visits recently for Reyna catheter blockage. Patient states that about 10:30 PM his tried to flush the catheter but was unsuccessful. Patient has progressively had increased pressure in the suprapubic area. Patient denying any hematuria. Has had no fever. No headache, no fever or chills, no changes in vision or hearing, no sore throat or difficulty with speech, no neck pain, no chest pain or shortness of breath, no abdominal pain, no nausea or vomiting, no changes in bowel movements, no numbness or tingling, no extremity pain, no skin rashes or lesions. Past medical, surgical, social, and family history reviewed. - Related Data Home Medications Medication Instructions Recorded Confirmed Aspirin EC [Ecotrin] 325 mg PO DAILY 10/15/14 03/02/22 Lovastatin [Mevacor] 40 mg PO HS 10/15/14 03/02/22 Cholecalciferol [Vitamin D3 (25 25 mcg PO DAILY 08/04/21 02/26/22 Mcg = 1000 Iu)] Divalproex ER [Depakote ER] 500 mg PO HS 08/04/21 03/02/22 Donepezil HCl [Aricept] 10 mg PO HS 08/04/21 03/02/22 Magnesium Hydroxide [Milk of 1 dose PO DIRECTED PRN 02/26/22 02/26/22 Magnesia] Multivitamins, Thera [Multivitamin 1 tab PO DAILY 02/26/22 03/02/22 (formulary)] Sennosides [Senna] 1 tab PO DAILY 02/26/22 03/02/22 Previous Rx's Medication Instructions Recorded Sulfamethox-Tmp 800-160Mg [Bactrim 1 tab PO Q12HR 5 Days #10 tab 06/05/22 DS 800-160 mg] Nitrofurantoin Monohyd/M-Cryst 100 mg PO Q12HR #14 cap 06/29/22 [Macrobid] Allergies Allergy/AdvReac Type Severity Reaction Status Date / Time No Known Allergies Allergy Verified 06/29/22 01:34 Review of Systems ROS Statement: Those systems with pertinent positive or pertinent negative responses have been documented in the HPI. ROS Other: All systems not noted in ROS Statement are negative. Past Medical History Past Medical History: Hyperlipidemia, Prostate Disorder Additional Past Medical History / Comment(s): BOTH HIS HAS COVID IN THE FALL OF 2020 AND WENT TO [facility] FOR REHAB AND STILL RESIDES THERE. PATIENT IS ABLE TO SIGN HIS OWN CONSENT. History of Any Multi-Drug Resistant Organisms: None Reported Additional Past Surgical History / Comment(s): KIDNEY STONES. Bilateral foot surgery Past Psychological History: No Psychological Hx Reported Smoking Status: Former smoker Past Alcohol Use History: None Reported Past Drug Use History: None Reported - Past Family History Mother Family Medical History: Unable to Obtain General Exam - General Exam Comments Initial Comments: Patient appears to be uncomfortable secondary to urinary retention and blocked Reyna catheter. However does not appear to be ill or toxic. Patient noted to be hypertensive on arrival. Her last 2 seconds. No mottling. General appearance: alert, in distress Head exam: Present: atraumatic, normocephalic, normal inspection Eye exam: Present: normal appearance, PERRL, EOMI. Absent: scleral icterus, conjunctival injection, periorbital swelling ENT exam: Present: normal exam, mucous membranes moist Neck exam: Present: normal inspection. Absent: tenderness, meningismus, lymphadenopathy Respiratory exam: Present: normal lung sounds bilaterally. Absent: respiratory distress, wheezes, rales, rhonchi, stridor Cardiovascular Exam: Present: regular rate, normal rhythm, normal heart sounds. Absent: systolic murmur, diastolic murmur, rubs, gallop, clicks GI/Abdominal exam: Present: distended (Suprapubic area), tenderness (Patient has some tenderness in the suprapubic area with distention.), normal bowel sounds. Absent: guarding, rebound, rigid Extremities exam: Present: normal inspection, full ROM, normal capillary refill. Absent: tenderness, pedal edema, joint swelling, calf tenderness Back exam: Present: normal inspection Neurological exam: Present: alert, oriented X3, CN II-XII intact Psychiatric exam: Present: normal affect, normal mood Skin exam: Present: warm, dry, intact, normal color. Absent: rash Course Vital Signs 06/29/22 01:34 Temperature 98.2 F Pulse Rate 81 Respiratory 15 Rate Blood Pressure 159/88 O2 Sat by Pulse 98 Oximetry - Reevaluation(s) Reevaluation #1: 06/29/22 02:18 Medical record is reviewed Symptoms are improved here in the emergency department Patient is informed of results and questions answered Patient in no distress For the catheter draining straw-colored fluid Medical Decision Making - Medical Decision Making Patient presents with a blocked Reyna catheter. We'll attempt to flush the catheter. If this is unsuccessful change out of the Reyna catheter will be made. Suspect the patient can be discharged. I wanted to cover the patient since she did have greater than 10 white cells per high-power field, rare bacteria, but a positive nitrite. We will treat with Macrobid pending the urine culture. However the patient shows no evidence of systemic infection and was much improved after Reyna catheter placement. Patient was told to return to the ER for any signs or symptoms worsen. Told to return immediately if any other problems arise. All questions answered. Treatment plan discussed. Patient in agreement Every effort has been made to ensure accuracy of this dictation. However, due to the limitations of electronic medical records and dictation devices, errors in charting still occur. The case was discussed in detail with ED attending physician. Presentation, findings, treatment plan discussed in detail. Ham Trimmer Dr. Aleman - Lab Data Lab Results 06/29/22 Range/Units 01:14 Urine Color Colorless Urine Appearance Clear (Clear) Urine pH 7.5 (5.0-8.0) Ur Specific [place] 1.010 (1.001-1.035) Urine Protein Negative (Negative) Urine Glucose (UA) Negative (Negative) Urine Ketones 1+ H (Negative) Urine Blood Negative (Negative) Urine Nitrite Positive (Negative) Urine Bilirubin Negative (Negative) Urine Urobilinogen <2.0 (<2.0) mg/dL Ur Leukocyte Esterase Large H (Negative) Urine RBC 1 (0-5) /hpf Urine WBC 15 H (0-5) /hpf Ur Squamous Epith Cells <1 (0-4) /hpf Urine Bacteria Few H (None) /hpf Disposition Clinical Impression: Reyna catheter problem, Urinary retention Disposition: HOME SELF-CARE Condition: Good Instructions (If sedation given, give patient instructions): Reyna Catheter Placement and Care (ED) Additional Instructions: Take antibiotics as directed. Follow-up with your regular physician for further evaluation and care. Follow-up with your regular physician as directed. Return to the ER immediately if any symptoms worsen, new symptoms arise, or any other problems develop. Prescriptions: Nitrofurantoin Monohyd/M-Cryst [Macrobid] 100 mg PO Q12HR #14 cap Is patient prescribed a controlled substance at d/c from ED?: No Referrals: [facility],Clinic [Primary Care Provider] - 1-2 days Time of Disposition: 02:20
[2022-06-29 01:37] VITALS: RESP 15; TEMP 98.2
[2022-06-29 02:10] LABS: Appearance,Urine Clear (Clear); Bacteria,Urine Few /hpf; Bilirubin,Urine Negative (Negative); Blood,Urine Negative (Negative); Color,Urine Colorless; Glucose,Urine (UA) Negative (Negative); Ketones,Urine 1+ (Negative); Leukocyte Esterase,Urine Large (Negative); Nitrite,Urine Positive (Negative); PH, Urine 7.5 (5.0-8.0); Protein,Urine Negative (Negative); RBC,Urine 1 /hpf (0-5); Squamous Epithelial Cell,Urine <1 /hpf (0-4); Urobilinogen,Urine <2.0 mg/dL (<2.0); WBC,Urine 15 /hpf (0-5)
[2022-06-29] MEDS ORDERED: NITROFURANTOIN MONOHYD/M-CRYST 100 MG CAP PO STA (02:17)
[2022-06-29 02:45] VITALS: BP 129/74; PULSE 71
== END 2022-06-29 02:54 | disposition home or self-care (01) ==
LOC: EC 01:09
DX: T83.018A Breakdown (mechanical) of other urinary catheter, initial encounter (principal); R33.9 Retention of urine, unspecified; E78.5 Hyperlipidemia, unspecified; Z87.891 Personal history of nicotine dependence
CPT/HCPCS: 81001; 87086; 99283

== ENCOUNTER 2022-09-10 00:04 | Emergency (ER) | payer MEDICARE, BC ==
--- NOTE | 2022-09-10 01:04 | ED ---
Male Urogenital HPI - General Chief complaint: Urogenital Stated complaint: abd pain, Time Seen by Provider: 09/10/22 00:55 Source: patient, RN notes reviewed Mode of arrival: ambulatory Limitations: no limitations - History of Present Illness Initial comments: This is an 81-year-old male who presents to the emergency department for problems with his Reyna catheter. States that around 6 PM, he was not getting any drainage from the catheter. The family tried to flush it multiple times with no relief. He is now having a lot of pain in the abdomen. He has had a Reyna catheter in place for several years secondary to chronic urinary retention. Denies any fevers, chills, sore throat, cough, dyspnea, chest pain, palpitations, nausea, vomiting, diarrhea, back pain, or headaches. MD Complaint: other (Reyna catheter won't drain) - Related Data Home Medications Medication Instructions Recorded Confirmed Aspirin EC [Ecotrin] 325 mg PO DAILY 10/15/14 03/02/22 Lovastatin [Mevacor] 40 mg PO HS 10/15/14 03/02/22 Cholecalciferol [Vitamin D3 (25 25 mcg PO DAILY 08/04/21 02/26/22 Mcg = 1000 Iu)] Divalproex ER [Depakote ER] 500 mg PO HS 08/04/21 03/02/22 Donepezil HCl [Aricept] 10 mg PO HS 08/04/21 03/02/22 Magnesium Hydroxide [Milk of 1 dose PO DIRECTED PRN 02/26/22 02/26/22 Magnesia] Multivitamins, Thera [Multivitamin 1 tab PO DAILY 02/26/22 03/02/22 (formulary)] Sennosides [Senna] 1 tab PO DAILY 02/26/22 03/02/22 Previous Rx's Medication Instructions Recorded Sulfamethox-Tmp 800-160Mg [Bactrim 1 tab PO Q12HR 5 Days #10 tab 06/05/22 DS 800-160 mg] Nitrofurantoin Monohyd/M-Cryst 100 mg PO Q12HR #14 cap 06/29/22 [Macrobid] cefUROXime axetiL [Ceftin] 500 mg PO BID 10 Days #20 tab 08/04/22 cefUROXime axetiL [Ceftin] 500 mg PO BID 10 Days #20 tab 09/10/22 Allergies Allergy/AdvReac Type Severity Reaction Status Date / Time No Known Allergies Allergy Verified 09/10/22 00:52 Review of Systems ROS Statement: Those systems with pertinent positive or pertinent negative responses have been documented in the HPI. ROS Other: All systems not noted in ROS Statement are negative. Past Medical History Past Medical History: Hyperlipidemia, Prostate Disorder Additional Past Medical History / Comment(s): BOTH HIS HAS COVID IN THE FALL OF 2020 AND [facility] AND STILL RESIDES THERE. PATIENT IS ABLE TO SIGN HIS OWN CONSENT. History of Any Multi-Drug Resistant Organisms: None Reported Additional Past Surgical History / Comment(s): KIDNEY STONES. Bilateral foot surgery Past Psychological History: No Psychological Hx Reported Smoking Status: Former smoker Past Alcohol Use History: None Reported Past Drug Use History: None Reported - Past Family History Mother Family Medical History: Unable to Obtain General Exam Limitations: no limitations General appearance: alert, in distress Head exam: Present: atraumatic, normocephalic, normal inspection Respiratory exam: Present: normal lung sounds bilaterally. Absent: respiratory distress, wheezes, rales, rhonchi, stridor Cardiovascular Exam: Present: regular rate, normal rhythm, normal heart sounds. Absent: systolic murmur, diastolic murmur, rubs, gallop, clicks GI/Abdominal exam: Present: soft, tenderness (Suprapubic), normal bowel sounds. Absent: distended, guarding, rebound, rigid exam: Present: normal inspection. Absent: urethral discharge External exam: Present: normal external exam. Absent: erythema, swelling Neurological exam: Present: alert, oriented X3, CN II-XII intact Psychiatric exam: Present: normal affect, normal mood Skin exam: Present: warm, dry, intact, normal color. Absent: rash Course Vital Signs 09/10/22 09/10/22 00:51 02:44 Temperature 98.1 F 98 F Pulse Rate 72 76 Respiratory 18 16 Rate Blood Pressure 205/100 178/79 O2 Sat by Pulse 98 100 Oximetry Medical Decision Making - Medical Decision Making This is an 81-year-old male who presents to the emergency department for problems with his Reyna catheter being clogged. His Reyna catheter was replaced without difficulty. His urine began flowing immediately following replacement and the patient had resolution of pain. Urinalysis was positive for a urinary tract infection. He was given IM Rocephin in the emergency department and a prescription for a 10 day course of Ceftin was provided. Return precautions reviewed in depth, the patient is instructed to return to the emergency department with any new, worsening, or concerning symptoms. Patient verbalized understanding. This case was discussed in detail with the attending ED physician. Presentation, findings, and treatment plan discussed in detail as well. - Lab Data Lab Results 09/10/22 Range/Units 01:21 Urine Color Yellow Urine Appearance Turbid (Clear) Urine pH 7.5 (5.0-8.0) Ur Specific [place] 1.023 (1.001-1.035) Urine Protein 2+ H (Negative) Urine Glucose (UA) Negative (Negative) Urine Ketones Trace H (Negative) Urine Blood Moderate H (Negative) Urine Nitrite Positive (Negative) Urine Bilirubin Negative (Negative) Urine Urobilinogen <2.0 (<2.0) mg/dL Ur Leukocyte Esterase Large H (Negative) Urine RBC 142 H (0-5) /hpf Urine WBC >182 H (0-5) /hpf Triple Phos Crystals Occasional H (None) /hpf Amorphous Sediment Few H (None) /hpf Urine Bacteria Occasional H (None) /hpf Urine Mucus Rare H (None) /hpf Disposition Clinical Impression: Reyna catheter problem, UTI (urinary tract infection) Disposition: HOME SELF-CARE Instructions (If sedation given, give patient instructions): Urinary Tract Infection in Men (ED), Reyna Catheter Placement and Care (ED) Additional Instructions: Return to the emergency department with any new, worsening, or concerning symptoms. Take the antibiotic as prescribed for 10 days. Follow up with your primary care provider in 1-2 days. Prescriptions: cefUROXime axetiL [Ceftin] 500 mg PO BID 10 Days #20 tab Is patient prescribed a controlled substance at d/c from ED?: No Referrals: None,Stated [REFERRING] - 1-2 days
[2022-09-10] MEDS ORDERED: cefTRIAXone 1,000 MG VIAL (IM USE) IM STA (01:13)
[2022-09-10 02:23] LABS: Amorphous Sediment,Urine Few /hpf; Appearance,Urine Turbid (Clear); Bacteria,Urine Occasional /hpf; Bilirubin,Urine Negative (Negative); Blood,Urine Moderate (Negative); Color,Urine Yellow; Glucose,Urine (UA) Negative (Negative); Ketones,Urine Trace (Negative); Leukocyte Esterase,Urine Large (Negative); Mucus,Urine Rare /hpf; Nitrite,Urine Positive (Negative); PH, Urine 7.5 (5.0-8.0); Protein,Urine 2+ (Negative); RBC,Urine 142 /hpf (0-5); Specific Gravity,Urine 1.023 (1.001-1.035); Triple Phosphate Crystal,Urine Occasional /hpf; Urobilinogen,Urine <2.0 mg/dL (<2.0); WBC,Urine >182 /hpf (0-5)
[2022-09-10 02:45] VITALS: BP 178/79; PULSE 76; RESP 16; TEMP 98
== END 2022-09-10 02:49 | disposition home or self-care (01) ==
LOC: EC 00:04
DX: T83.091A Other mechanical complication of indwelling urethral catheter, initial encounter (principal); N39.0 Urinary tract infection, site not specified; E78.5 Hyperlipidemia, unspecified; Z79.810 Long term (current) use of selective estrogen receptor modulators (SERMs); Z87.891 Personal history of nicotine dependence
CPT/HCPCS: 81001; 87086; 87077; 87186; 99284; 96372; 51702; J0696

== ENCOUNTER 2022-10-03 22:52 | Emergency (ER) | payer MEDICARE, BC ==
[2022-10-03 22:58] VITALS: BP 146/77; PULSE 87; RESP 16
--- NOTE | 2022-10-03 23:49 | ED ---
Male Urogenital HPI - General Chief complaint: Urogenital Stated complaint: Catheter issues Time Seen by Provider: 10/03/22 22:55 Source: patient Mode of arrival: EMS - History of Present Illness Initial comments: 81-year-old male with past medical history of prostate disorder, Reyna catheter presents to the emergency department with an obstructed Reyna catheter. His cares for it at home. She tried to flush it this evening and could not get it to work and therefore he was sent into the emergency department. He denies any bloody urine. Catheter was last changed 3 weeks ago. Denies any fevers. No other alleviating, precipitating or modifying factors - Related Data Home Medications Medication Instructions Recorded Confirmed Aspirin EC [Ecotrin] 325 mg PO DAILY 10/15/14 03/02/22 Lovastatin [Mevacor] 40 mg PO HS 10/15/14 03/02/22 Cholecalciferol [Vitamin D3 (25 25 mcg PO DAILY 08/04/21 02/26/22 Mcg = 1000 Iu)] Divalproex ER [Depakote ER] 500 mg PO HS 08/04/21 03/02/22 Donepezil HCl [Aricept] 10 mg PO HS 08/04/21 03/02/22 Magnesium Hydroxide [Milk of 1 dose PO DIRECTED PRN 02/26/22 02/26/22 Magnesia] Multivitamins, Thera [Multivitamin 1 tab PO DAILY 02/26/22 03/02/22 (formulary)] Sennosides [Senna] 1 tab PO DAILY 02/26/22 03/02/22 Previous Rx's Medication Instructions Recorded Sulfamethox-Tmp 800-160Mg [Bactrim 1 tab PO Q12HR 5 Days #10 tab 06/05/22 DS 800-160 mg] Nitrofurantoin Monohyd/M-Cryst 100 mg PO Q12HR #14 cap 06/29/22 [Macrobid] cefUROXime axetiL [Ceftin] 500 mg PO BID 10 Days #20 tab 08/04/22 cefUROXime axetiL [Ceftin] 500 mg PO BID 10 Days #20 tab 09/10/22 Cephalexin [Keflex] 500 mg PO Q6HR #28 cap 10/04/22 Allergies Allergy/AdvReac Type Severity Reaction Status Date / Time No Known Allergies Allergy Verified 10/03/22 22:53 Review of Systems ROS Statement: Those systems with pertinent positive or pertinent negative responses have been documented in the HPI. ROS Other: All systems not noted in ROS Statement are negative. Past Medical History Past Medical History: Hyperlipidemia, Prostate Disorder Additional Past Medical History / Comment(s): BOTH HIS HAS COVID IN THE FALL OF 2020 AND WENT TO [facility] FOR REHAB AND STILL RESIDES THERE. PATIENT IS ABLE TO SIGN HIS OWN CONSENT. History of Any Multi-Drug Resistant Organisms: None Reported Additional Past Surgical History / Comment(s): KIDNEY STONES. Bilateral foot surgery Past Psychological History: No Psychological Hx Reported Smoking Status: Former smoker Past Alcohol Use History: None Reported Past Drug Use History: None Reported - Past Family History Mother Family Medical History: Unable to Obtain General Exam General appearance: alert, in no apparent distress Head exam: Present: atraumatic, normocephalic, normal inspection Eye exam: Present: normal appearance, PERRL, EOMI. Absent: scleral icterus, conjunctival injection, periorbital swelling ENT exam: Present: normal exam, mucous membranes moist Neck exam: Present: normal inspection. Absent: tenderness, meningismus, lymphadenopathy Respiratory exam: Present: normal lung sounds bilaterally. Absent: respiratory distress, wheezes, rales, rhonchi, stridor Cardiovascular Exam: Present: regular rate, normal rhythm, normal heart sounds. Absent: systolic murmur, diastolic murmur, rubs, gallop, clicks GI/Abdominal exam: Present: soft, normal bowel sounds. Absent: distended, tenderness, guarding, rebound, rigid Extremities exam: Present: normal inspection, full ROM, normal capillary refill. Absent: tenderness, pedal edema, joint swelling, calf tenderness Back exam: Present: normal inspection Neurological exam: Present: alert, oriented X3, CN II-XII intact Psychiatric exam: Present: normal affect, normal mood Skin exam: Present: warm, dry, intact, normal color. Absent: rash Course Vital Signs 10/03/22 22:53 Pulse Rate 87 Respiratory 16 Rate Blood Pressure 146/77 O2 Sat by Pulse 98 Oximetry Medical Decision Making - Medical Decision Making Was pt. sent in by a medical professional or institution? @ No Did you speak to anyone other than the patient for history? @ -No Did you review nursing and triage notes? @ -Yes and I agree Were old charts reviewed? @ -Previous emergency visits, previous microbiology results Differential Diagnosis? @ -Differential Abdominal Pain Men: Hematuria, UTI, renal stone, displaced Reyna catheter EKG interpreted by me (3pts min.)? @ -No X-rays interpreted by me (1pt min.)? @ -No CT interpreted by me (1pt min.)? @ -No U/S interpreted by me (1pt. min.)? @ -No What testing was considered but not performed? (CT, X-rays, U/S, labs)? Why? @ None What meds were considered but not given? Why? @ -None Did you discuss the management of the patient with other professionals? @ No Did you reconcile home meds? @ -No Was smoking cessation discussed for >3mins.? @ -No Was critical care preformed (if so, how long)? @ -No Were there social determinants of health that impacted care today? How? (Homelessness, low income, unemployed, alcoholism, drug addiction, transportation, low edu. Level, literacy, decrease access to med. care, retirement, rehab)? @ -None Was there de-escalation of care discussed even if they declined? (Discuss DNR or withdrawal of care, Hospice)? @ -No What co-morbidities impacted this encounter? (DM, HTN, Smoking, COPD, CAD, Cancer, CVA, Hep., AIDS, mental health diagnosis, sleep apnea, morbid obesity)? @ -None Was patient admitted / discharged? @ -Upon arrival patient was placed into room 20. A thorough history and physical exam was performed. We did attempt to flush the patient we are unsuccessful. Because of this a new Reyna catheter was inserted. Urinalysis was sent which demonstrates significant UTI. Previous microbiology cultures demonstrated that it was sensitive to cephalosporins. He was given a dose of Keflex in the emergency department discharged home on Keflex. Needs to follow up with primary care doctor and return for any new or worsening symptoms Undiagnosed new problem with uncertain prognosis? @ -No Drug Therapy requiring intensive monitoring for toxicity (Heparin, Nitro, Insulin, Cardizem)? @ -No Were any procedures done? @ -Reyna catheter insertion Diagnosis/symptom? @ -Acute UTI Acute, or Chronic, or Acute on Chronic? @ -Acute on chronic Uncomplicated (without systemic symptoms) or Complicated (systemic symptoms)? @ -Complicated Side effects of treatment? @ -None Exacerbation, Progression, or Severe Exacerbation] @ -No Poses a threat to life or bodily function? @ No - Lab Data Lab Results 10/03/22 Range/Units 23:21 Urine Color Yellow Urine Appearance Turbid (Clear) Urine pH 8.0 (5.0-8.0) Ur Specific [place] 1.021 (1.001-1.035) Urine Protein 1+ H (Negative) Urine Glucose (UA) Negative (Negative) Urine Ketones Negative (Negative) Urine Blood Trace H (Negative) Urine Nitrite Positive (Negative) Urine Bilirubin Negative (Negative) Urine Urobilinogen <2.0 (<2.0) mg/dL Ur Leukocyte Esterase Large H (Negative) Urine RBC 17 H (0-5) /hpf Urine WBC >182 H (0-5) /hpf Urine WBC Clumps Moderate H (None) /hpf Amorphous Sediment Rare H (None) /hpf Urine Bacteria Few H (None) /hpf Urine Mucus Rare H (None) /hpf Disposition Clinical Impression: UTI (urinary tract infection), Reyna catheter problem Disposition: HOME SELF-CARE Condition: Stable Instructions (If sedation given, give patient instructions): Urinary Tract Infection in Men (ED), Reyna Catheter Placement and Care (ED) Additional Instructions: Take the antibiotics as directed and follow up with your doctor. Return for any new or worsening symptoms Prescriptions: Cephalexin [Keflex] 500 mg PO Q6HR #28 cap Is patient prescribed a controlled substance at d/c from ED?: No Referrals: [facility] [Primary Care Provider] - 1-2 days Time of Disposition: 00:23
[2022-10-04 00:01] LABS: Amorphous Sediment,Urine Rare /hpf; Appearance,Urine Turbid (Clear); Bacteria,Urine Few /hpf; Bilirubin,Urine Negative (Negative); Blood,Urine Trace (Negative); Color,Urine Yellow; Glucose,Urine (UA) Negative (Negative); Ketones,Urine Negative (Negative); Leukocyte Esterase,Urine Large (Negative); Mucus,Urine Rare /hpf; Nitrite,Urine Positive (Negative); Protein,Urine 1+ (Negative); RBC,Urine 17 /hpf (0-5); Specific Gravity,Urine 1.021 (1.001-1.035); Urobilinogen,Urine <2.0 mg/dL (<2.0); WBC,Urine >182 /hpf (0-5)
[2022-10-04] MEDS ORDERED: CEPHALEXIN 500 MG CAP PO STA (00:17)
== END 2022-10-04 00:36 | disposition home or self-care (01) ==
LOC: EC 22:52
DX: T83.091A Other mechanical complication of indwelling urethral catheter, initial encounter (principal); N39.0 Urinary tract infection, site not specified; Z87.891 Personal history of nicotine dependence
CPT/HCPCS: 51702; 81001; 87086; 99283

== ENCOUNTER 2022-10-17 23:40 | Emergency (ER) | payer MEDICARE, BC ==
[2022-10-17 23:48] VITALS: BP 155/94; PULSE 70; RESP 18; TEMP 98.1
--- NOTE | 2022-10-17 23:53 | ED ---
Male Urogenital HPI - General Chief complaint: Urogenital Stated complaint: cath issues Time Seen by Provider: 10/17/22 23:50 Source: patient, EMS, RN notes reviewed, old records reviewed Mode of arrival: EMS Limitations: no limitations - Related Data Home Medications Medication Instructions Recorded Confirmed Aspirin EC [Ecotrin] 325 mg PO DAILY 10/15/14 03/02/22 Lovastatin [Mevacor] 40 mg PO HS 10/15/14 03/02/22 Cholecalciferol [Vitamin D3 (25 25 mcg PO DAILY 08/04/21 02/26/22 Mcg = 1000 Iu)] Divalproex ER [Depakote ER] 500 mg PO HS 08/04/21 03/02/22 Donepezil HCl [Aricept] 10 mg PO HS 08/04/21 03/02/22 Magnesium Hydroxide [Milk of 1 dose PO DIRECTED PRN 02/26/22 02/26/22 Magnesia] Multivitamins, Thera [Multivitamin 1 tab PO DAILY 02/26/22 03/02/22 (formulary)] Sennosides [Senna] 1 tab PO DAILY 02/26/22 03/02/22 Previous Rx's Medication Instructions Recorded Sulfamethox-Tmp 800-160Mg [Bactrim 1 tab PO Q12HR 5 Days #10 tab 06/05/22 DS 800-160 mg] Nitrofurantoin Monohyd/M-Cryst 100 mg PO Q12HR #14 cap 06/29/22 [Macrobid] cefUROXime axetiL [Ceftin] 500 mg PO BID 10 Days #20 tab 08/04/22 cefUROXime axetiL [Ceftin] 500 mg PO BID 10 Days #20 tab 09/10/22 Cephalexin [Keflex] 500 mg PO Q6HR #28 cap 10/04/22 Allergies Allergy/AdvReac Type Severity Reaction Status Date / Time No Known Allergies Allergy Verified 10/17/22 23:45 Review of Systems ROS Statement: Those systems with pertinent positive or pertinent negative responses have been documented in the HPI. ROS Other: All systems not noted in ROS Statement are negative. Past Medical History Past Medical History: Hyperlipidemia, Prostate Disorder Additional Past Medical History / Comment(s): covid fall 2020, PATIENT IS ABLE TO SIGN HIS OWN CONSENT. chronic mohan History of Any Multi-Drug Resistant Organisms: None Reported Additional Past Surgical History / Comment(s): KIDNEY STONES. Bilateral foot surgery Past Psychological History: No Psychological Hx Reported Smoking Status: Former smoker Past Alcohol Use History: None Reported Past Drug Use History: None Reported - Past Family History Mother Family Medical History: Unable to Obtain General Exam Limitations: no limitations General appearance: alert, in no apparent distress, anxious Head exam: Present: atraumatic, normocephalic, normal inspection Eye exam: Present: normal appearance, PERRL, EOMI. Absent: scleral icterus, conjunctival injection, periorbital swelling ENT exam: Present: normal exam, mucous membranes moist Neck exam: Present: normal inspection. Absent: tenderness, meningismus, lympha denopathy Respiratory exam: Present: normal lung sounds bilaterally. Absent: respiratory distress, wheezes, rales, rhonchi, stridor Cardiovascular Exam: Present: regular rate, normal rhythm, normal heart sounds. Absent: systolic murmur, diastolic murmur, rubs, gallop, clicks GI/Abdominal exam: Present: soft, normal bowel sounds. Absent: distended, tenderness, guarding, rebound, rigid Extremities exam: Present: normal inspection, full ROM, normal capillary refill. Absent: tenderness, pedal edema, joint swelling, calf tenderness Back exam: Present: normal inspection Neurological exam: Present: alert, oriented X3, CN II-XII intact Psychiatric exam: Present: normal affect, normal mood Skin exam: Present: warm, dry, intact, normal color. Absent: rash Course Vital Signs 10/17/22 23:45 Temperature 98.1 F Pulse Rate 70 Respiratory 18 Rate Blood Pressure 155/94 O2 Sat by Pulse 100 Oximetry - Reevaluation(s) Reevaluation #1: 10/18/22 00:00 record is reviewed. Reevaluation #2: 10/18/22 00:00 patient is fully is examined here in the ER does appear to be working appropriately Bladder scan is negative Reevaluation #3: 10/18/22 00:00 patient informed of results and questions answered Reevaluation #4: 10/18/22 00:00 Was pt. sent in by a medical professional or institution? @ -no Did you speak to anyone other than the patient for history? @ -no Did you review nursing and triage notes? @ -agree Were old charts reviewed? @ -no Differential Diagnosis? @ -no EKG interpreted by me (3pts min.)? @ -[none] X-rays interpreted by me (1pt min.)? @ -[none] CT interpreted by me (1pt min.)? @ -[none] U/S interpreted by me (1pt. min.)? @ -[none] What testing was considered but not performed? (CT, X-rays, U/S, labs)? Why? @ -no What meds were considered but not given? Why? @ -[none] Did you discuss the management of the patient with other professionals? @ -no Did you reconcile home meds? @ -[none] Was smoking cessation discussed for >3mins.? @ -[none] Was critical care preformed (if so, how long)? @ -[none] Were there social determinants of health that impacted care today? How? (Homelessness, low income, unemployed, alcoholism, drug addiction, transportation, low edu. Level, literacy, decrease access to med. care, correction, rehab)? @ -no Was there de-escalation of care discussed even if they declined? (Discuss DNR or withdrawal of care, Hospice)? @ -no What co-morbidities impacted this encounter? (DM, HTN, Smoking, COPD, CAD, Cancer, CVA, Hep., AIDS, mental health diagnosis, sleep apnea, morbid obesity)? @ -no Was patient admitted / discharged? @ -dc Undiagnosed new problem with uncertain prognosis? @ -[none] Drug Therapy requiring intensive monitoring for toxicity (Heparin, Nitro, Insulin, Cardizem)? @ -[none] Were any procedures done? @ -[none] Diagnosis/symptom? @ -[default] Acute, or Chronic, or Acute on Chronic? @ -[default] Uncomplicated (without systemic symptoms) or Complicated (systemic symptoms)? @ -[default] Side effects of treatment? @ -[none] Exacerbation, Progression, or Severe Exacerbation] @ -[no] Poses a threat to life or bodily function? @ -[no] Medical Decision Making - Medical Decision Making 81 male to the ER for urinary retention. Mohan appears to be working appropriately without removing it. Patient has no pain bladder scan negative can be discharged home Disposition Clinical Impression: Malfunction of Mohan catheter, Urinary retention Disposition: HOME SELF-CARE Condition: Good Instructions (If sedation given, give patient instructions): Urinary Retention in Men (ED) Is patient prescribed a controlled substance at d/c from ED?: No Referrals: None,Stated [Primary Care Provider] - 1-2 days Time of Disposition: 00:05
== END 2022-10-18 00:14 | disposition home or self-care (01) ==
LOC: EC 23:40
DX: T85.618A Breakdown (mechanical) of other specified internal prosthetic devices, implants and grafts, initial encounter (principal); R33.9 Retention of urine, unspecified; E78.5 Hyperlipidemia, unspecified; Z79.82 Long term (current) use of aspirin; Z79.899 Other long term (current) drug therapy; Z87.891 Personal history of nicotine dependence
CPT/HCPCS: 99283

== ENCOUNTER 2022-10-25 18:47 | Emergency (ER) | payer MEDICARE, BC ==
[2022-10-25 18:57] VITALS: BP 176/85; PULSE 76; RESP 20; TEMP 97.9
[2022-10-25] MEDS ORDERED: LIDOCAINE 2% URO-JET JELLY 5 ML KIT URETHRAL ONE (19:41)
--- NOTE | 2022-10-25 20:11 | ED ---
General Adult HPI - General Chief complaint: Recheck/Abnormal Lab/Rx Stated complaint: clogged catheter Time Seen by Provider: 10/25/22 18:51 Source: EMS Mode of arrival: EMS Limitations: no limitations - History of Present Illness Initial comments: 81-year-old male with chronic indwelling Mohan presents to the emergency department with clogged Mohan. Patient has been seen in the emergency department several times for the same complaint. States his catheter was recently changed within the past 8 days. He has been placed on several courses of antibiotics for urinary tract infection. States that his catheter hasn't drained since around 11:00 this morning. He denies fevers. No other alleviating, precipitating or modifying factors - Related Data Home Medications Medication Instructions Recorded Confirmed Aspirin EC [Ecotrin] 325 mg PO DAILY 10/15/14 03/02/22 Lovastatin [Mevacor] 40 mg PO HS 10/15/14 03/02/22 Cholecalciferol [Vitamin D3 (25 25 mcg PO DAILY 08/04/21 02/26/22 Mcg = 1000 Iu)] Divalproex ER [Depakote ER] 500 mg PO HS 08/04/21 03/02/22 Donepezil HCl [Aricept] 10 mg PO HS 08/04/21 03/02/22 Magnesium Hydroxide [Milk of 1 dose PO DIRECTED PRN 02/26/22 02/26/22 Magnesia] Multivitamins, Thera [Multivitamin 1 tab PO DAILY 02/26/22 03/02/22 (formulary)] Sennosides [Senna] 1 tab PO DAILY 02/26/22 03/02/22 Previous Rx's Medication Instructions Recorded Sulfamethox-Tmp 800-160Mg [Bactrim 1 tab PO Q12HR 5 Days #10 tab 06/05/22 DS 800-160 mg] Nitrofurantoin Monohyd/M-Cryst 100 mg PO Q12HR #14 cap 06/29/22 [Macrobid] cefUROXime axetiL [Ceftin] 500 mg PO BID 10 Days #20 tab 08/04/22 cefUROXime axetiL [Ceftin] 500 mg PO BID 10 Days #20 tab 09/10/22 Cephalexin [Keflex] 500 mg PO Q6HR #28 cap 10/04/22 Allergies Allergy/AdvReac Type Severity Reaction Status Date / Time No Known Allergies Allergy Verified 10/25/22 18:57 Review of Systems ROS Statement: Those systems with pertinent positive or pertinent negative responses have been documented in the HPI. ROS Other: All systems not noted in ROS Statement are negative. Past Medical History Past Medical History: Hyperlipidemia, Prostate Disorder Additional Past Medical History / Comment(s): covid fall 2020, PATIENT IS ABLE TO SIGN HIS OWN CONSENT. chronic mohan History of Any Multi-Drug Resistant Organisms: None Reported Additional Past Surgical History / Comment(s): KIDNEY STONES. Bilateral foot surgery Past Psychological History: No Psychological Hx Reported Smoking Status: Former smoker Past Alcohol Use History: None Reported Past Drug Use History: None Reported - Past Family History Mother Family Medical History: Unable to Obtain General Exam Limitations: no limitations General appearance: alert, in no apparent distress Head exam: Present: atraumatic, normocephalic, normal inspection Eye exam: Present: normal appearance, PERRL, EOMI. Absent: scleral icterus, conjunctival injection, periorbital swelling ENT exam: Present: normal exam, mucous membranes moist Neck exam: Present: normal inspection. Absent: tenderness, meningismus, lymphadenopathy Respiratory exam: Present: normal lung sounds bilaterally. Absent: respiratory distress, wheezes, rales, rhonchi, stridor Cardiovascular Exam: Present: regular rate, normal rhythm, normal heart sounds. Absent: systolic murmur, diastolic murmur, rubs, gallop, clicks GI/Abdominal exam: Present: soft, normal bowel sounds, other (indwelling mohan in proper position). Absent: distended, tenderness, guarding, rebound, rigid Extremities exam: Present: normal inspection, full ROM, normal capillary refill. Absent: tenderness, pedal edema, joint swelling, calf tenderness Back exam: Present: normal inspection Neurological exam: Present: alert, oriented X3, CN II-XII intact Psychiatric exam: Present: normal affect, normal mood Skin exam: Present: warm, dry, intact, normal color. Absent: rash Course Vital Signs 10/25/22 18:54 Temperature 97.9 F Pulse Rate 76 Respiratory 20 Rate Blood Pressure 176/85 O2 Sat by Pulse 100 Oximetry Medical Decision Making - Medical Decision Making Was pt. sent in by a medical professional or institution (, PA, SPECIAL PROCEDURES TECH, urgent care, hospital, or senior living...) When possible be specific No Did you speak to anyone other than the patient for history (EMS, parent, family, police, friend...)? What history was obtained from this source No Did you review nursing and triage notes (agree or disagree)? Why? yes and i agree Were old charts reviewed (outside hosp., previous admission, EMS record, old EKG, old radiological studies, urgent care reports/EKG's, senior living records)? Report findings Yes, multiple recent ED visits reviewed as patient had same complaint Differential Diagnosis (chest pain, altered mental status, abdominal pain women, abdominal pain men, vaginal bleeding, weakness, fever, dyspnea, syncope, headache, dizziness, GI bleed, back pain, seizure, CVA, palpatations, mental health)? clogged mohan, malpositioned mohan, UTI, hematuria EKG interpreted by me (3pts min.). No X-rays interpreted by me (1pt min.). No CT interpreted by me (1pt min.). No U/S interpreted by me (1pt. min.). No What testing was considered but not performed or refused? (CT, X-rays, U/S, labs)? Why? None What meds were considered but not given or refused? Why? None Did you discuss the management of the patient with other professionals (professionals i.e. , PA, SPECIAL PROCEDURES TECH, lab, RT, psych nurse, family welfare social work professor, sample weaver, teacher, bomb squad officer, outsole caser)? Give summary No Was smoking cessation discussed for >3mins.? No Was critical care preformed (if so, how long)? No Were there social determinants of health that impacted care today? How? (Homelessness, low income, unemployed, alcoholism, drug addiction, transportation, low edu. Level, literacy, decrease access to med. care, senior care, rehab)? No Was there de-escalation of care discussed even if they declined (Discuss DNR or withdrawal of care, Hospice)? DNR status No What co-morbidities impacted this encounter? (DM, HTN, Smoking, COPD, CAD, Ca ncer, CVA, ARF, Chemo, Hep., AIDS, mental health diagnosis, sleep apnea, morbid obesity)? chronic retention, recurrent UTIs Was patient admitted / discharged? Hospital course, mention meds given and route, prescriptions, significant lab abnormalities, going to OR and other pertinent info. Upon arrival patient was placed into room 16. A thorough history and physical exam was performed. We do attempt to flush the patient's catheter. He is bladder scanned and there appears to be 150 mL of urine still in the bladder. The catheter is manipulated more however does not appear to have any adequate drainage. The catheter is replaced with 400 mL output of urine. Patient feels much more comfortable at this time. His urine specimen will be sent for urine culture and we will call with the results. Patient understood this. Was given written and verbal discharge instructions and discharged home in stable condition Undiagnosed new problem with uncertain prognosis? No Drug Therapy requiring intensive monitoring for toxicity (Heparin, Nitro, Insulin, Cardizem)? No Were any procedures done? Mohan replacement by RN Diagnosis/symptom? Acute mohan obstruction Acute, or Chronic, or Acute on Chronic? Acute Uncomplicated (without systemic symptoms) or Complicated (systemic symptoms)? uncomplicated Side effects of treatment? none Exacerbation, Progression, or Severe Exacerbation? no Poses a threat to life or bodily function? How? (Chest pain, [place], [place], pneumonia, PE, COPD, DKA, ARF, appy, cholecystitis, CVA, Diverticulitis, Homicidal, Suicidal, threat to staff... and all critical care pts) no Disposition Clinical Impression: Malfunction of Mohan catheter Disposition: HOME SELF-CARE Condition: Stable Instructions (If sedation given, give patient instructions): Mohan Catheter Placement and Care (ED) Is patient prescribed a controlled substance at d/c from ED?: No Referrals: [facility],Clinic [Primary Care Provider] - 1-2 days Time of Disposition: 20:12
== END 2022-10-25 21:38 | disposition home or self-care (01) ==
LOC: EC 18:47
DX: T83.091A Other mechanical complication of indwelling urethral catheter, initial encounter (principal); E78.5 Hyperlipidemia, unspecified; Z87.891 Personal history of nicotine dependence; Z79.82 Long term (current) use of aspirin; Z79.899 Other long term (current) drug therapy
CPT/HCPCS: 87077; 87086; 87186; 99284

== ENCOUNTER 2022-12-07 19:57 | Emergency (ER) | payer MEDICARE, BC ==
[2022-12-07 20:32] VITALS: BP 166/98; PULSE 77; RESP 18; TEMP 98.1
[2022-12-07 23:05] LABS: Amorphous Sediment,Urine Occasional /hpf; Appearance,Urine Cloudy (Clear); Bacteria,Urine Moderate /hpf; Bilirubin,Urine Negative (Negative); Blood,Urine Moderate (Negative); Color,Urine Yellow; Glucose,Urine (UA) Negative (Negative); Ketones,Urine 1+ (Negative); Leukocyte Esterase,Urine Large (Negative); Mucus,Urine Rare /hpf; Nitrite,Urine Positive (Negative); Protein,Urine 1+ (Negative); RBC,Urine 84 /hpf (0-5); Specific Gravity,Urine 1.023 (1.001-1.035); Urobilinogen,Urine <2.0 mg/dL (<2.0); WBC,Urine 127 /hpf (0-5)
--- NOTE | 2022-12-08 08:44 | ED ---
Male Urogenital HPI - General Chief complaint: Urogenital Stated complaint: Catheter Malfunction Time Seen by Provider: 12/07/22 21:59 Source: patient Mode of arrival: ambulatory Limitations: no limitations - History of Present Illness Initial comments: 82-year-old male with chronic urinary retention presents to the emergency department reporting catheter issues. Patient has been seen in the emergency department several times for similar complaint. patient was last seen one month ago for a clogged Mohan catheter. He reports that 2 hours ago he noticed a decrease in the amount of urine production. He has some suprapubic discomfort. Requesting Mohan change at this time. Denies hematuria. No fevers. No other alleviating, precipitating or modifying factors - Related Data Home Medications Medication Instructions Recorded Confirmed Aspirin EC [Ecotrin] 325 mg PO DAILY 10/15/14 03/02/22 Lovastatin [Mevacor] 40 mg PO HS 10/15/14 03/02/22 Cholecalciferol [Vitamin D3 (25 25 mcg PO DAILY 08/04/21 02/26/22 Mcg = 1000 Iu)] Divalproex ER [Depakote ER] 500 mg PO HS 08/04/21 03/02/22 Donepezil HCl [Aricept] 10 mg PO HS 08/04/21 03/02/22 Magnesium Hydroxide [Milk of 1 dose PO DIRECTED PRN 02/26/22 02/26/22 Magnesia] Multivitamins, Thera [Multivitamin 1 tab PO DAILY 02/26/22 03/02/22 (formulary)] Sennosides [Senna] 1 tab PO DAILY 02/26/22 03/02/22 Previous Rx's Medication Instructions Recorded Sulfamethox-Tmp 800-160Mg [Bactrim 1 tab PO Q12HR 5 Days #10 tab 06/05/22 DS 800-160 mg] Nitrofurantoin Monohyd/M-Cryst 100 mg PO Q12HR #14 cap 06/29/22 [Macrobid] cefUROXime axetiL [Ceftin] 500 mg PO BID 10 Days #20 tab 08/04/22 cefUROXime axetiL [Ceftin] 500 mg PO BID 10 Days #20 tab 09/10/22 Cephalexin [Keflex] 500 mg PO Q6HR #28 cap 10/04/22 Cephalexin [Keflex] 500 mg PO QID #28 cap 11/11/22 Cephalexin [Keflex] 500 mg PO QID 7 Days #28 cap 12/11/22 Allergies Allergy/AdvReac Type Severity Reaction Status Date / Time No Known Allergies Allergy Verified 12/07/22 20:30 Review of Systems ROS Statement: Those systems with pertinent positive or pertinent negative responses have been documented in the HPI. ROS Other: All systems not noted in ROS Statement are negative. Past Medical History Past Medical History: Hyperlipidemia, Prostate Disorder Additional Past Medical History / Comment(s): covid fall 2020, PATIENT IS ABLE TO SIGN HIS OWN CONSENT. chronic mohan History of Any Multi-Drug Resistant Organisms: None Reported Additional Past Surgical History / Comment(s): KIDNEY STONES. Bilateral foot surgery Past Psychological History: No Psychological Hx Reported Smoking Status: Former smoker Past Alcohol Use History: None Reported Past Drug Use History: None Reported - Past Family History Mother Family Medical History: Unable to Obtain General Exam Limitations: no limitations General appearance: alert, in no apparent distress Respiratory exam: Present: normal lung sounds bilaterally. Absent: respiratory distress, wheezes, rales, rhonchi, stridor Cardiovascular Exam: Present: regular rate, normal rhythm, normal heart sounds. Absent: systolic murmur, diastolic murmur, rubs, gallop, clicks GI/Abdominal exam: Present: soft, tenderness (suprapubic), normal bowel sounds. Absent: distended, guarding, rebound, rigid exam: Present: normal inspection. Absent: testicular tenderness, urethral discharge Course Vital Signs 12/07/22 20:30 Temperature 98.1 F Pulse Rate 77 Respiratory 18 Rate Blood Pressure 166/98 O2 Sat by Pulse 98 Oximetry Medical Decision Making - Medical Decision Making Was pt. sent in by a medical professional or institution (, PA, NON PROFIT JOB TITLES, urgent care, hospital, or retirement...) When possible be specific @ -No Did you speak to anyone other than the patient for history (EMS, parent, family, police, friend...)? What history was obtained from this source @ -No Did you review nursing and triage notes (agree or disagree)? Why? @ -I reviewed and agree with nursing and triage notes Were old charts reviewed (outside hosp., previous admission, EMS record, old EKG, old radiological studies, urgent care reports/EKG's, retirement records)? Report findings @ -old charts were reviewed - seen several times for same complaint Differential Diagnosis (chest pain, altered mental status, abdominal pain women, abdominal pain men, vaginal bleeding, weakness, fever, dyspnea, syncope, headache, dizziness, GI bleed, back pain, seizure, CVA, palpatations, mental health, musculoskeletal)? @ -catheter malfunction, uti, hematuria EKG interpreted by me (3pts min.). @ -Not done X-rays interpreted by me (1pt min.). @ -Not done CT interpreted by me (1pt min.). @ -None done U/S interpreted by me (1pt. min.). @ -None done What testing was considered but not performed or refused? (CT, X-rays, U/S, labs)? Why? @ -None What meds were considered but not given or refused? Why? @ -None Did you discuss the management of the patient with other professionals (professionals i.e. , PA, NON PROFIT JOB TITLES, lab, RT, psych nurse, manager social, carpet finishing supervisor, teacher, navy airspace officer, porter sample case)? Give summary @ -No Was smoking cessation discussed for >3mins.? @ -No Was critical care preformed (if so, how long)? @ -No Were there social determinants of health that impacted care today? How? (Homelessness, low income, unemployed, alcoholism, drug addiction, transportation, low edu. Level, literacy, decrease access to med. care, care home, rehab)? @ -No Was there de-escalation of care discussed even if they declined (Discuss DNR or withdrawal of care, Hospice)? DNR status @ -No What co-morbidities impacted this encounter? (DM, HTN, Smoking, COPD, CAD, Cancer, CVA, ARF, Chemo, Hep., AIDS, mental health diagnosis, sleep apnea, morbid obesity)? @ -chronic urinary retention Was patient admitted / discharged? Hospital course, mention meds given and route, prescriptions, significant lab abnormalities, going to OR and other pertinent info. @ -Upon arrival patient was placed into room 15. A thorough history and physical exam was performed. We did replace the patient's Mohan catheter and is adequately draining at this time. I did send for urinalysis. While awaiting the results of the urinalysis I did get a critical patients in cardiac arrest. While attending to this other patient, Mr. Jauregui's son assented to the ED and requested to take him home. Nursing staff attempted to discuss that the patient needed to await results from me. He became very angry and forcibly made his father leave without discharge instructions. I attempted to call the patient to apologize for my delay in his care and left a voicemail. Will await urine culture as patient has no symptoms of UTI. Undiagnosed new problem with uncertain prognosis? @ -No Drug Therapy requiring intensive monitoring for toxicity (Heparin, Nitro, Insulin, Cardizem)? @ -No Were any procedures done? @ -Mohan catheter exchange Diagnosis/symptom? @ -acute catheter malfunction Acute, or Chronic, or Acute on Chronic? @ -acute, recurrent Uncomplicated (without systemic symptoms) or Complicated (systemic symptoms)? @ -uncomplicated Side effects of treatment? @ -Trauma, hematuria Exacerbation, Progression, or Severe Exacerbation? @ -No Poses a threat to life or bodily function? How? (Chest pain, [place], [place], pneumonia, PE, COPD, DKA, ARF, appy, cholecystitis, CVA, Diverticulitis, Homicidal, Suicidal, threat to staff... and all critical care pts) @ -No - Lab Data Lab Results 12/07/22 Range/Units 22:47 Urine Color Yellow Urine Appearance Cloudy (Clear) Urine pH 7.0 (5.0-8.0) Ur Specific [place] 1.023 (1.001-1.035) Urine Protein 1+ H (Negative) Urine Glucose (UA) Negative (Negative) Urine Ketones 1+ H (Negative) Urine Blood Moderate H (Negative) Urine Nitrite Positive (Negative) Urine Bilirubin Negative (Negative) Urine Urobilinogen <2.0 (<2.0) mg/dL Ur Leukocyte Esterase Large H (Negative) Urine RBC 84 H (0-5) /hpf Urine WBC 127 H (0-5) /hpf Amorphous Sediment Occasional H (None) /hpf Urine Bacteria Moderate H (None) /hpf Urine Mucus Rare H (None) /hpf Disposition Clinical Impression: Malfunction of Mohan catheter Disposition: Left Against Medical Advice Condition: Undetermined Prescriptions: Cephalexin [Keflex] 500 mg PO QID 7 Days #28 cap Is patient prescribed a controlled substance at d/c from ED?: No Referrals: [facility],Clinic [Primary Care Provider] - 1-2 days
== END 2022-12-08 00:45 | disposition left against medical advice (07) ==
LOC: EC 19:57
DX: T83.018A Breakdown (mechanical) of other urinary catheter, initial encounter (principal); E78.5 Hyperlipidemia, unspecified; Z53.29 Procedure and treatment not carried out because of patient's decision for other reasons; Z79.899 Other long term (current) drug therapy; Z79.82 Long term (current) use of aspirin; Z87.442 Personal history of urinary calculi; Z87.891 Personal history of nicotine dependence
CPT/HCPCS: 51702; 81001; 87077; 87086; 87186; 99284

== ENCOUNTER 2022-12-17 19:30 | Emergency (ER) | payer MEDICARE, BC ==
[2022-12-17 19:45] VITALS: RESP 16
[2022-12-17] MEDS ORDERED: SODIUM CHLORIDE 0.9% 500 ML 500 ML IV STA (20:09)
[2022-12-17] MEDS ORDERED: ONDANSETRON 4 MG/2 ML VIAL IVP STA (20:09)
--- NOTE | 2022-12-17 20:14 | ED ---
Nausea/Vomiting/Diarrhea HPI - General Chief complaint: Nausea/Vomiting/Diarrhea Stated complaint: Nausea, Vomiting Time Seen by Provider: 12/17/22 20:00 Source: patient, RN notes reviewed, old records reviewed Mode of arrival: EMS Limitations: no limitations - History of Present Illness Initial comments: 82-year-old male alert and oriented to person place and time but not situation. Presents to the emergency room via EMS with nausea vomiting diarrhea for an hour. Patient states he is not sure if he had any nausea vomiting or diarrhea. Does not know why he has Mohan catheter in place. States that his chief complaint right now is he states shoulder and did have some dizziness which has resolved. denies any chest pain or shortness of breath.Patient has history of high cholesterol prostate disorder and indwelling Mohan catheter MD complaint: nausea, vomiting, diarrhea (per EMS), other (dizziness) -: hour(s) (1) Associated Abdominal Pain: No Severity scale (1-10): 0 Associated Symptoms: fever/chills, other (dizziness) - Related Data Home Medications Medication Instructions Recorded Confirmed Aspirin EC [Ecotrin] 325 mg PO DAILY 10/15/14 03/02/22 Lovastatin [Mevacor] 40 mg PO HS 10/15/14 03/02/22 Cholecalciferol [Vitamin D3 (25 25 mcg PO DAILY 08/04/21 02/26/22 Mcg = 1000 Iu)] Divalproex ER [Depakote ER] 500 mg PO HS 08/04/21 03/02/22 Donepezil HCl [Aricept] 10 mg PO HS 08/04/21 03/02/22 Magnesium Hydroxide [Milk of 1 dose PO DIRECTED PRN 02/26/22 02/26/22 Magnesia] Multivitamins, Thera [Multivitamin 1 tab PO DAILY 02/26/22 03/02/22 (formulary)] Sennosides [Senna] 1 tab PO DAILY 02/26/22 03/02/22 Previous Rx's Medication Instructions Recorded Sulfamethox-Tmp 800-160Mg [Bactrim 1 tab PO Q12HR 5 Days #10 tab 06/05/22 DS 800-160 mg] Nitrofurantoin Monohyd/M-Cryst 100 mg PO Q12HR #14 cap 06/29/22 [Macrobid] cefUROXime axetiL [Ceftin] 500 mg PO BID 10 Days #20 tab 08/04/22 cefUROXime axetiL [Ceftin] 500 mg PO BID 10 Days #20 tab 09/10/22 Cephalexin [Keflex] 500 mg PO Q6HR #28 cap 10/04/22 Cephalexin [Keflex] 500 mg PO QID #28 cap 11/11/22 Cephalexin [Keflex] 500 mg PO QID 7 Days #28 cap 12/11/22 Allergies Allergy/AdvReac Type Severity Reaction Status Date / Time No Known Allergies Allergy Verified 12/07/22 20:30 Review of Systems ROS Statement: Those systems with pertinent positive or pertinent negative responses have been documented in the HPI. ROS Other: All systems not noted in ROS Statement are negative. Past Medical History Past Medical History: Hyperlipidemia, Prostate Disorder Additional Past Medical History / Comment(s): covid fall 2020, PATIENT IS ABLE TO SIGN HIS OWN CONSENT. chronic mohan History of Any Multi-Drug Resistant Organisms: None Reported Additional Past Surgical History / Comment(s): KIDNEY STONES. Bilateral foot surgery Past Psychological History: No Psychological Hx Reported Smoking Status: Former smoker Past Alcohol Use History: None Reported Past Drug Use History: None Reported - Past Family History Mother Family Medical History: Unable to Obtain General Exam Limitations: no limitations General appearance: alert, in no apparent distress Head exam: Present: atraumatic Eye exam: Present: normal appearance, EOMI. Absent: scleral icterus, co njunctival injection, periorbital swelling, periorbital tenderness ENT exam: Present: normal oropharynx, mucous membranes moist Neck exam: Absent: tenderness, meningismus, lymphadenopathy Respiratory exam: Absent: respiratory distress, accessory muscle use Cardiovascular Exam: Present: regular rate GI/Abdominal exam: Present: soft. Absent: distended, tenderness, guarding, rebound, rigid Extremities exam: Present: normal capillary refill. Absent: tenderness, pedal edema Neurological exam: Present: alert, oriented X3 (person, place, time, not situation) Psychiatric exam: Present: normal affect, normal mood Skin exam: Present: warm, dry, normal color. Absent: cyanosis, diaphoretic, petechiae, pallor Course Vital Signs 12/17/22 12/17/22 12/17/22 19:40 19:46 20:00 Temperature 97.7 F Pulse Rate 66 51 L Respiratory 16 16 Rate Blood Pressure 138/71 138/81 O2 Sat by Pulse 100 100 Oximetry 12/17/22 12/17/22 12/17/22 20:30 21:00 21:30 Temperature 96.9 F L 97.9 F Pulse Rate 75 66 72 Respiratory 16 16 16 Rate Blood Pressure 133/82 127/73 138/67 O2 Sat by Pulse 100 100 93 L Oximetry 12/17/22 12/17/22 22:00 23:06 Temperature 98.9 F Pulse Rate 67 84 Respiratory 16 16 Rate Blood Pressure 143/82 144/76 O2 Sat by Pulse 94 L 97 Oximetry Medical Decision Making - Medical Decision Making Patient presents with chills, n/v/d today. Currently being treated for UTI with Keflex, prescribed December 11 for 7 days. Influenza, coronavirus an RSV swab negative. Urinalysis shows urinary tract inf ection and patient is currently on Keflex. There is a mild leukocytosis of 11.1 Chest x-ray interpreted by me shows no evidence of consolidation. Radiologist interpretation no active cardiopulmonary disease. Normal heart. EKG shows sinus rhythm with ventricular rate of 71, first-degree block with a LA 0.231, QRS 0.106, QTC 0.426. Normal axis Patient was given IV fluids and Zofran with resolution of his symptoms. No abdominal pain. Mohan catheter is draining yellow urine. States ready to be discharged home I spoke with the patient's son at patient's request, Mychal at [phone]. He was advised of the patient's test results and chest x-ray. He is agreeable to patient being discharged home with follow-up with primary care doctor. Case discussed with Dr. Waite who evaluated patient at bedside. Was pt. sent in by a medical professional or institution (, PA, POWERTRAIN ENGINEER, urgent care, hospital, or correction...) When possible be specific @ -[No] Did you speak to anyone other than the patient for history (EMS, parent, family, police, friend...)? What history was obtained from this source @ -patient's son shone in Did you review nursing and triage notes (agree or disagree)? Why? @ -[I reviewed and agree with nursing and triage notes] Were old charts reviewed (outside hosp., previous admission, EMS record, old EKG, old radiological studies, urgent care reports/EKG's, correction records)? Report findings @ yes previous visit 12/11/22, antibiotic prescription for UTI Differential Diagnosis (chest pain, altered mental status, abdominal pain women, abdominal pain men, vaginal bleeding, weakness, fever, dyspnea, syncope, headache, dizziness, GI bleed, back pain, seizure, CVA, palpatations, mental he alth, musculoskeletal)? @ Differential Weakness: Hypoglycemia, shock, sepsis, hyponatremia, anemia, infection, CA, adverse medicine reaction, overdose, this is not meant to be an all-inclusive list. EKG interpreted by me (3pts min.). @ -[As above] X-rays interpreted by me (1pt min.). @ yes as above CT interpreted by me (1pt min.). @ -[None done] U/S interpreted by me (1pt. min.). @ -[None done] What testing was considered but not performed or refused? (CT, X-rays, U/S, labs)? Why? @ -[None] What meds were considered but not given or refused? Why? @ -[None] Did you discuss the management of the patient with other professionals (professionals i.e. , PA, POWERTRAIN ENGINEER, lab, RT, psych nurse, social studies department chair, pediatric acute care unit nurse, teacher, banking officer, case finisher)? Give summary @ -[No] Was smoking cessation discussed for >3mins.? @ -[No] Was critical care preformed (if so, how long)? @ -[No] Were there social determinants of health that impacted care today? How? (Homelessness, low income, unemployed, alcoholism, drug addiction, transportation, low edu. Level, literacy, decrease access to med. care, alf, rehab)? @ -[No] Was there de-escalation of care discussed even if they declined (Discuss DNR or withdrawal of care, Hospice)? DNR status @ -[No] What co-morbidities impacted this encounter? (DM, HTN, Smoking, COPD, CAD, Cancer, CVA, ARF, Chemo, Hep., AIDS, mental health diagnosis, sleep apnea, morbid obesity)? @ -[None] Was patient admitted / discharged? Hospital course, mention meds given and route, prescriptions, significant lab abnormalities, going to OR and other pertinent info. @ -discharged Undiagnosed new problem with uncertain prognosis? @ -[No] Drug Therapy requiring intensive monitoring for toxicity (Heparin, Nitro, Insulin, Cardizem)? @ -[No] Were any procedures done? @ -[No] Diagnosis/symptom? @ gastritis, UTI Acute, or Chronic, or Acute on Chronic? @ acute Uncomplicated (without systemic symptoms) or Complicated (systemic symptoms)? @ uncomplicated Side effects of treatment? @ -[No] Exacerbation, Progression, or Severe Exacerbation? @ -[No] Poses a threat to life or bodily function? How? (Chest pain, [place], [place], pneumonia, PE, COPD, DKA, ARF, appy, cholecystitis, CVA, Diverticulitis, Homicidal, Suicidal, threat to staff... and all critical care pts) @ -[No] - Lab Data Result diagrams: 12/17/22 20:20 12/17/22 20:20 Lab Results 12/17/22 12/17/22 12/17/22 Range/Units 20:20 20:20 20:20 WBC 11.1 H (3.8-10.6) k/uL RBC 4.07 L (4.30-5.90) m/uL Hgb 12.4 L (13.0-17.5) gm/dL Hct 37.5 L (39.0-53.0) % MCV 92.1 (80.0-100.0) fL MCH 30.5 (25.0-35.0) pg MCHC 33.1 (31.0-37.0) g/dL RDW 13.1 (11.5-15.5) % Plt Count 285 (150-450) k/uL MPV 7.2 Neutrophils % 74 % Lymphocytes % 18 % Monocytes % 5 % Eosinophils % 1 % Basophils % 0 % Neutrophils # 8.2 H (1.3-7.7) k/uL Lymphocytes # 2.0 (1.0-4.8) k/uL Monocytes # 0.6 (0-1.0) k/uL Eosinophils # 0.1 (0-0.7) k/uL Basophils # 0.0 (0-0.2) k/uL Sodium 136 L (137-145) mmol/L Potassium 4.1 (3.5-5.1) mmol/L Chloride 104 (98-107) mmol/L Carbon Dioxide 26 (22-30) mmol/L Anion Gap 6 mmol/L BUN 25 H (9-20) mg/dL Creatinine 1.10 (0.66-1.25) mg/dL Est GFR (CKD-EPI)AfAm 73 (>60 ml/min/1.73 sqM) Est GFR (CKD-EPI)NonAf 63 (>60 ml/min/1.73 sqM) Glucose 202 H (74-99) mg/dL Calcium 8.6 (8.4-10.2) mg/dL Total Bilirubin 0.3 (0.2-1.3) mg/dL AST 24 (17-59) U/L ALT 19 (4-49) U/L Alkaline Phosphatase 67 (38-126) U/L Total Protein 6.3 (6.3-8.2) g/dL Albumin 3.7 (3.5-5.0) g/dL Amylase 100 (30-110) U/L Lipase 145 (23-300) U/L Urine Color Yellow Urine Appearance Cloudy (Clear) Urine pH 6.5 (5.0-8.0) Ur Specific [place] 1.026 (1.001-1.035) Urine Protein 2+ H (Negative) Urine Glucose (UA) Negative (Negative) Urine Ketones 1+ H (Negative) Urine Blood Trace H (Negative) Urine Nitrite Positive (Negative) Urine Bilirubin Negative (Negative) Urine Urobilinogen 2.0 (<2.0) mg/dL Ur Leukocyte Esterase Moderate H (Negative) Urine RBC 23 H (0-5) /hpf Urine WBC 77 H (0-5) /hpf Ur Squamous Epith Cells 1 (0-4) /hpf Amorphous Sediment Occasional H (None) /hpf Urine Bacteria Few H (None) /hpf Hyaline Casts 3 H (0-2) /lpf Urine Mucus Occasional H (None) /hpf Influenza Type A (PCR) (Not Detectd) Influenza Type B (PCR) (Not Detectd) RSV (PCR) (Not Detectd) SARS-CoV-2 (PCR) (Not Detectd) 12/17/22 Range/Units 20:20 WBC (3.8-10.6) k/uL RBC (4.30-5.90) m/uL Hgb (13.0-17.5) gm/dL Hct (39.0-53.0) % MCV (80.0-100.0) fL MCH (25.0-35.0) pg MCHC (31.0-37.0) g/dL RDW (11.5-15.5) % Plt Count (150-450) k/uL MPV Neutrophils % % Lymphocytes % % Monocytes % % Eosinophils % % Basophils % % Neutrophils # (1.3-7.7) k/uL Lymphocytes # (1.0-4.8) k/uL Monocytes # (0-1.0) k/uL Eosinophils # (0-0.7) k/uL Basophils # (0-0.2) k/uL Sodium (137-145) mmol/L Potassium (3.5-5.1) mmol/L Chloride (98-107) mmol/L Carbon Dioxide (22-30) mmol/L Anion Gap mmol/L BUN (9-20) mg/dL Creatinine (0.66-1.25) mg/dL Est GFR (CKD-EPI)AfAm (>60 ml/min/1.73 sqM) Est GFR (CKD-EPI)NonAf (>60 ml/min/1.73 sqM) Glucose (74-99) mg/dL Calcium (8.4-10.2) mg/dL Total Bilirubin (0.2-1.3) mg/dL AST (17-59) U/L ALT (4-49) U/L Alkaline Phosphatase (38-126) U/L Total Protein (6.3-8.2) g/dL Albumin (3.5-5.0) g/dL Amylase (30-110) U/L Lipase (23-300) U/L Urine Color Urine Appearance (Clear) Urine pH (5.0-8.0) Ur Specific [place] (1.001-1.035) Urine Protein (Negative) Urine Glucose (UA) (Negative) Urine Ketones (Negative) Urine Blood (Negative) Urine Nitrite (Negative) Urine Bilirubin (Negative) Urine Urobilinogen (<2.0) mg/dL Ur Leukocyte Esterase (Negative) Urine RBC (0-5) /hpf Urine WBC (0-5) /hpf Ur Squamous Epith Cells (0-4) /hpf Amorphous Sediment (None) /hpf Urine Bacteria (None) /hpf Hyaline Casts (0-2) /lpf Urine Mucus (None) /hpf Influenza Type A (PCR) Not Detected (Not Detectd) Influenza Type B (PCR) Not Detected (Not Detectd) RSV (PCR) Not Detected (Not Detectd) SARS-CoV-2 (PCR) Not Detected (Not Detectd) Disposition Clinical Impression: Nausea & vomiting Disposition: HOME SELF-CARE Condition: Good Instructions (If sedation given, give patient instructions): Acute Nausea and Vomiting (ED) Additional Instructions: Increase your fluid intake. Follow-up with the primary care doctor on Tuesday. Return to the emergency room with any new or concerning symptoms including fevers, persistent nausea vomiting, abdominal pain, chest pain or difficulty breathing. Is patient prescribed a controlled substance at d/c from ED?: No Referrals: [facility],Clinic [Primary Care Provider] - 1-2 days Time of Disposition: 22:26
[2022-12-17 20:37] LABS: Basophils % (A) 0 %; Eosinophils # (A) 0.1 k/uL (0-0.7); Eosinophils % (A) 1 %; HCT 37.5 % (39.0-53.0); HGB 12.4 gm/dL (13.0-17.5); Lymphocytes % (A) 18 %; MCH 30.5 pg (25.0-35.0); MCHC 33.1 g/dL (31.0-37.0); MCV 92.1 fL (80.0-100.0); Mean Platelet Volume 7.2; Monocytes # (A) 0.6 k/uL (0-1.0); Monocytes % (A) 5 %; Neutrophils # (A) 8.2 k/uL (1.3-7.7); Neutrophils % (A) 74 %; Platelet Count 285 k/uL (150-450); RBC 4.07 m/uL (4.30-5.90); RDW 13.1 % (11.5-15.5); WBC 11.1 k/uL (3.8-10.6)
[2022-12-17 21:00] LABS: Albumin 3.7 g/dL (3.5-5.0); Calcium 8.6 mg/dL (8.4-10.2); Potassium 4.1 mmol/L (3.5-5.1); Total Bilirubin 0.3 mg/dL (0.2-1.3); Total Protein 6.3 g/dL (6.3-8.2)
[2022-12-17 21:04] LABS: Amorphous Sediment,Urine Occasional /hpf; Appearance,Urine Cloudy (Clear); Bacteria,Urine Few /hpf; Bilirubin,Urine Negative (Negative); Blood,Urine Trace (Negative); Color,Urine Yellow; Glucose,Urine (UA) Negative (Negative); Hyaline Casts,Urine 3 /lpf (0-2); Ketones,Urine 1+ (Negative); Leukocyte Esterase,Urine Moderate (Negative); Mucus,Urine Occasional /hpf; Nitrite,Urine Positive (Negative); PH, Urine 6.5 (5.0-8.0); Protein,Urine 2+ (Negative); RBC,Urine 23 /hpf (0-5); Specific Gravity,Urine 1.026 (1.001-1.035); Squamous Epithelial Cell,Urine 1 /hpf (0-4); WBC,Urine 77 /hpf (0-5)
--- NOTE | 2022-12-17 21:29 | XR ---
EXAMINATION TYPE: XR chest 2V DATE OF EXAM: 12/17/2022 COMPARISON: NONE HISTORY: Abdominal pain TECHNIQUE: 2 views FINDINGS: Heart is normal. Lungs are clear of infiltrate. No heart failure. There are no hilar masses . The bony thorax is intact IMPRESSION: No active cardiac pulmonary disease. Normal heart. No change.
[2022-12-17 23:08] VITALS: BP 144/76; PULSE 84; TEMP 98.9
== END 2022-12-17 23:08 | disposition home or self-care (01) ==
LOC: EC 19:30
DX: R11.2 Nausea with vomiting, unspecified (principal); D72.829 Elevated white blood cell count, unspecified; E78.5 Hyperlipidemia, unspecified; Z20.822 Contact with and (suspected) exposure to COVID-19; Z79.899 Other long term (current) drug therapy; Z87.891 Personal history of nicotine dependence; Z86.16 Personal history of COVID-19
CPT/HCPCS: 36415; 93005; 80053; 82150; 83690; 85025; 81001; 87086; 87636; 71046; 99285; 96374; J2405

== ENCOUNTER 2023-01-01 02:15 | Emergency (ER) | payer MEDICARE, BC ==
[2023-01-01 02:27] VITALS: BP 184/101; RESP 22; TEMP 97.6
[2023-01-01 02:29] VITALS: PULSE 77
--- NOTE | 2023-01-01 02:48 | ED ---
General Adult HPI - General Chief complaint: Urogenital Stated complaint: Abd pain, Cath Pain Time Seen by Provider: 01/01/23 02:19 Source: patient, EMS, RN notes reviewed, old records reviewed Mode of arrival: EMS - History of Present Illness Initial comments: 82-year-old male with chronic indwelling Mohan catheter presenting for evaluation of lower abdominal pain and decreased urinary output into his Mohan catheter. He states that this was changed earlier in the evening and he progressively developed lower abdominal pain. He states that there is been no urine output since he had the Mohan changed. No preceding symptoms prior to his event and no fever. No vomiting - Related Data Home Medications Medication Instructions Recorded Confirmed Aspirin EC [Ecotrin] 325 mg PO DAILY 10/15/14 03/02/22 Lovastatin [Mevacor] 40 mg PO HS 10/15/14 03/02/22 Cholecalciferol [Vitamin D3 (25 25 mcg PO DAILY 08/04/21 02/26/22 Mcg = 1000 Iu)] Divalproex ER [Depakote ER] 500 mg PO HS 08/04/21 03/02/22 Donepezil HCl [Aricept] 10 mg PO HS 08/04/21 03/02/22 Magnesium Hydroxide [Milk of 1 dose PO DIRECTED PRN 02/26/22 02/26/22 Magnesia] Multivitamins, Thera [Multivitamin 1 tab PO DAILY 02/26/22 03/02/22 (formulary)] Sennosides [Senna] 1 tab PO DAILY 02/26/22 03/02/22 Previous Rx's Medication Instructions Recorded Sulfamethox-Tmp 800-160Mg [Bactrim 1 tab PO Q12HR 5 Days #10 tab 06/05/22 DS 800-160 mg] Nitrofurantoin Monohyd/M-Cryst 100 mg PO Q12HR #14 cap 06/29/22 [Macrobid] cefUROXime axetiL [Ceftin] 500 mg PO BID 10 Days #20 tab 08/04/22 cefUROXime axetiL [Ceftin] 500 mg PO BID 10 Days #20 tab 09/10/22 Cephalexin [Keflex] 500 mg PO Q6HR #28 cap 10/04/22 Cephalexin [Keflex] 500 mg PO QID #28 cap 11/11/22 Cephalexin [Keflex] 500 mg PO QID 7 Days #28 cap 12/11/22 Allergies Allergy/AdvReac Type Severity Reaction Status Date / Time No Known Allergies Allergy Verified 12/07/22 20:30 Review of Systems ROS Statement: Those systems with pertinent positive or pertinent negative responses have been documented in the HPI. ROS Other: All systems not noted in ROS Statement are negative. Past Medical History Past Medical History: Hyperlipidemia, Prostate Disorder Additional Past Medical History / Comment(s): covid fall 2020, PATIENT IS ABLE TO SIGN HIS OWN CONSENT. chronic mohan History of Any Multi-Drug Resistant Organisms: None Reported Additional Past Surgical History / Comment(s): KIDNEY STONES. Bilateral foot surgery Past Psychological History: No Psychological Hx Reported Smoking Status: Former smoker Past Alcohol Use History: None Reported Past Drug Use History: None Reported - Past Family History Mother Family Medical History: Unable to Obtain General Exam General appearance: alert, in no apparent distress Head exam: Present: atraumatic Eye exam: Present: normal appearance ENT exam: Present: normal exam Respiratory exam: Present: normal lung sounds bilaterally. Absent: respiratory distress, wheezes Cardiovascular Exam: Present: regular rate, normal rhythm GI/Abdominal exam: Present: tenderness (Suprapubic) Extremities exam: Present: normal inspection Neurological exam: Present: alert, oriented X3, CN II-XII intact. Absent: motor sensory deficit Skin exam: Present: warm, dry, intact Course Vital Signs 01/01/23 01/01/23 02:19 02:27 Temperature 97.6 F Pulse Rate 85 77 Respiratory 22 Rate Blood Pressure 184/101 O2 Sat by Pulse 100 Oximetry Medical Decision Making - Medical Decision Making Was pt. sent in by a medical professional or institution (, PA, THEATRE ARTS PROFESSOR, urgent care, hospital, or fci...) When possible be specific @ -No Did you speak to anyone other than the patient for history (EMS, parent, family, police, friend...)? What history was obtained from this source @ -No Did you review nursing and triage notes (agree or disagree)? Why? @ -I reviewed and agree with nursing and triage notes Were old charts reviewed (outside hosp., previous admission, EMS record, old EKG, old radiological studies, urgent care reports/EKG's, fci records)? Report findings @ -No old charts were reviewed Differential Diagnosis (chest pain, altered mental status, abdominal pain women, abdominal pain men, vaginal bleeding, weakness, fever, dyspnea, syncope, headache, dizziness, GI bleed, back pain, seizure, CVA, palpatations, mental health, musculoskeletal)? @ -Acute urinary retention, occluded Mohan catheter, abdominal pain secondary to other cause not related to Mohan catheter EKG interpreted by me (3pts min.). @ -As above X-rays interpreted by me (1pt min.). @ -None done CT interpreted by me (1pt min.). @ -None done U/S interpreted by me (1pt. min.). @ -Bedside ultrasound performed showing 40 catheter within the bladder and a significantly distended bladder What testing was considered but not performed or refused? (CT, X-rays, U/S, labs)? Why? @ -None What meds were considered but not given or refused? Why? @ -None Did you discuss the management of the patient with other professionals (professionals i.e. , PA, THEATRE ARTS PROFESSOR, lab, RT, psych nurse, psychologist social, munitions worker, teacher, state highway police officer, case operator)? Give summary @ -No Was smoking cessation discussed for >3mins.? @ -No Was critical care preformed (if so, how long)? @ -No Were there social determinants of health that impacted care today? How? (Homelessness, low income, unemployed, alcoholism, drug addiction, transportation, low edu. Level, literacy, decrease access to med. care, skilled nursing, rehab)? @ -No Was there de-escalation of care discussed even if they declined (Discuss DNR or withdrawal of care, Hospice)? DNR status @ -No What co-morbidities impacted this encounter? (DM, HTN, Smoking, COPD, CAD, Cancer, CVA, ARF, Chemo, Hep., AIDS, mental health diagnosis, sleep apnea, morbid obesity)? @ -None Was patient admitted / discharged? Hospital course, mention meds given and route, prescriptions, significant lab abnormalities, going to OR and other pertinent info. @ -mohan catheter was occluded, was replaced the emergency department with complete resolution of patient's symptoms. Clear urine flowing freely. Undiagnosed new problem with uncertain prognosis? @ -No Drug Therapy requiring intensive monitoring for toxicity (Heparin, Nitro, Insulin, Cardizem)? @ -No Were any procedures done? @ -No Diagnosis/symptom? @ -Acute urinary retention secondary to occluded Mohan catheter Acute, or Chronic, or Acute on Chronic? @ -Acute Uncomplicated (without systemic symptoms) or Complicated (systemic symptoms)? @ -Uncomplicated Side effects of treatment? @ -No Exacerbation, Progression, or Severe Exacerbation? @ -No Poses a threat to life or bodily function? How? (Chest pain, [place], [place], pneumonia, PE, COPD, DKA, ARF, appy, cholecystitis, CVA, Diverticulitis, Homicidal, Suicidal, threat to staff... and all critical care pts) @ -No Disposition Clinical Impression: Malfunction of Mohan catheter Disposition: HOME SELF-CARE Condition: Good Instructions (If sedation given, give patient instructions): Mohan Catheter Placement and Care (ED) Is patient prescribed a controlled substance at d/c from ED?: No Referrals: [facility],Clinic [Primary Care Provider] - 1-2 days Time of Disposition: 02:45
== END 2023-01-01 03:58 | disposition home or self-care (01) ==
LOC: EC 02:15 → SUPCPDRO 02:15 → EC 03:58
DX: T83.091A Other mechanical complication of indwelling urethral catheter, initial encounter (principal); E78.5 Hyperlipidemia, unspecified; Z87.891 Personal history of nicotine dependence; Z79.82 Long term (current) use of aspirin; Z79.899 Other long term (current) drug therapy; Z86.16 Personal history of COVID-19
CPT/HCPCS: 51702; 99284

== ENCOUNTER 2023-01-12 22:22 | Emergency (ER) | payer MEDICARE, BC ==
[2023-01-12 22:28] VITALS: BP 168/78; PULSE 68; RESP 14; TEMP 97.6
[2023-01-12 22:56] LABS: Appearance,Urine Cloudy (Clear); Bacteria,Urine Rare /hpf; Bilirubin,Urine Negative (Negative); Blood,Urine Negative (Negative); Color,Urine Light Yellow; Glucose,Urine (UA) Negative (Negative); Ketones,Urine Negative (Negative); Leukocyte Esterase,Urine Large (Negative); Mucus,Urine Rare /hpf; Nitrite,Urine Negative (Negative); Protein,Urine 3+ (Negative); RBC,Urine 4 /hpf (0-5); Specific Gravity,Urine 1.017 (1.001-1.035); Urobilinogen,Urine <2.0 mg/dL (<2.0); WBC,Urine 126 /hpf (0-5)
--- NOTE | 2023-01-12 23:59 | ED ---
General Adult HPI - General Chief complaint: Urogenital Stated complaint: Catheter Issues Time Seen by Provider: 01/12/23 23:00 Source: patient, EMS, RN notes reviewed Mode of arrival: EMS Limitations: no limitations - History of Present Illness Initial comments: 82-year-old male presents emergency Department with chief complaint of Mohan catheter issue. Patient states his catheter was recently replaced states started some pressure and symptoms of burning discomfort. Patient arrived via EMS. Patient denies any back pain denies any reported fevers or chills no other associated symptoms - Related Data Home Medications Medication Instructions Recorded Confirmed Aspirin EC [Ecotrin] 325 mg PO DAILY 10/15/14 03/02/22 Lovastatin [Mevacor] 40 mg PO HS 10/15/14 03/02/22 Cholecalciferol [Vitamin D3 (25 25 mcg PO DAILY 08/04/21 02/26/22 Mcg = 1000 Iu)] Divalproex ER [Depakote ER] 500 mg PO HS 08/04/21 03/02/22 Donepezil HCl [Aricept] 10 mg PO HS 08/04/21 03/02/22 Magnesium Hydroxide [Milk of 1 dose PO DIRECTED PRN 02/26/22 02/26/22 Magnesia] Multivitamins, Thera [Multivitamin 1 tab PO DAILY 02/26/22 03/02/22 (formulary)] Sennosides [Senna] 1 tab PO DAILY 02/26/22 03/02/22 Previous Rx's Medication Instructions Recorded Sulfamethox-Tmp 800-160Mg [Bactrim 1 tab PO Q12HR 5 Days #10 tab 06/05/22 DS 800-160 mg] Nitrofurantoin Monohyd/M-Cryst 100 mg PO Q12HR #14 cap 06/29/22 [Macrobid] cefUROXime axetiL [Ceftin] 500 mg PO BID 10 Days #20 tab 08/04/22 cefUROXime axetiL [Ceftin] 500 mg PO BID 10 Days #20 tab 09/10/22 Cephalexin [Keflex] 500 mg PO Q6HR #28 cap 10/04/22 Cephalexin [Keflex] 500 mg PO QID #28 cap 11/11/22 Cephalexin [Keflex] 500 mg PO QID 7 Days #28 cap 12/11/22 Sulfamethox-Tmp 800-160Mg [Bactrim 1 each PO Q12HR #14 tab 01/12/23 Ds] Allergies Allergy/AdvReac Type Severity Reaction Status Date / Time No Known Allergies Allergy Verified 12/07/22 20:30 Review of Systems ROS Statement: Those systems with pertinent positive or pertinent negative responses have been documented in the HPI. ROS Other: All systems not noted in ROS Statement are negative. Past Medical History Past Medical History: Hyperlipidemia, Prostate Disorder Additional Past Medical History / Comment(s): covid fall 2020, PATIENT IS ABLE TO SIGN HIS OWN CONSENT. chronic mohan History of Any Multi-Drug Resistant Organisms: None Reported Additional Past Surgical History / Comment(s): KIDNEY STONES. Bilateral foot surgery Past Psychological History: No Psychological Hx Reported Smoking Status: Former smoker Past Alcohol Use History: None Reported Past Drug Use History: None Reported - Past Family History Mother Family Medical History: Unable to Obtain General Exam Limitations: no limitations General appearance: alert, in no apparent distress Head exam: Present: atraumatic, normocephalic, normal inspection Respiratory exam: Present: normal lung sounds bilaterally. Absent: respiratory distress, wheezes, rales, rhonchi, stridor Cardiovascular Exam: Present: regular rate, normal rhythm, normal heart sounds. Absent: systolic murmur, diastolic murmur, rubs, gallop, clicks GI/Abdominal exam: Present: soft, normal bowel sounds. Absent: distended, tenderness, guarding, rebound, rigid Course Vital Signs 01/12/23 22:25 Temperature 97.6 F Pulse Rate 68 Respiratory 14 Rate Blood Pressure 168/78 O2 Sat by Pulse 95 Oximetry Medical Decision Making - Medical Decision Making Was pt. sent in by a medical professional or institution (, PA, FOOD BROKER, urgent care, hospital, or residential...) When possible be specific @ -No Did you speak to anyone other than the patient for history (EMS, parent, family, police, friend...)? What history was obtained from this source @ -No Did you review nursing and triage notes (agree or disagree)? Why? @ -I reviewed and agree with nursing and triage notes Were old charts reviewed (outside hosp., previous admission, EMS record, old EKG, old radiological studies, urgent care reports/EKG's, residential records)? Report findings @ -Revealed recent visits in which fully catheter was exchanged, urinalysis at that time was unremarkable. Differential Diagnosis (chest pain, altered mental status, abdominal pain women, abdominal pain men, vaginal bleeding, weakness, fever, dyspnea, syncope, headache, dizziness, GI bleed, back pain, seizure, CVA, palpatations, mental health, musculoskeletal)? @ -nDifferential Abdominal Pain Men: Appendicitis, cholecystitis, diverticulosis, ischemic bowel, pancreatitis, hepatitis, UTI, gastroenteritis, AAA, incarcerated hernia, bowel obstruction, constipation, inflammatory bowel, hepatitis, peptic ulcer disease, splenic infarction, perforated viscus, testicular torsion, this is not meant to be an all-inclusive listcable EKG interpreted by me (3pts min.). @ -As above X-rays interpreted by me (1pt min.). @ -None done CT interpreted by me (1pt min.). @ -None done U/S interpreted by me (1pt. min.). @ -None done What testing was considered but not performed or refused? (CT, X-rays, U/S, labs)? Why? @ -None What meds were considered but not given or refused? Why? @ -None Did you discuss the management of the patient with other professionals (professionals i.e. , PA, FOOD BROKER, lab, RT, psych nurse, social service assistant, flume maker, teacher, chief compliance officer, case packer and sealer)? Give summary @ -No Was smoking cessation discussed for >3mins.? @ -No Was critical care preformed (if so, how long)? @ -No Were there social determinants of health that impacted care today? How? (Homelessness, low income, unemployed, alcoholism, drug addiction, transportation, low edu. Level, literacy, decrease access to med. care, intermediate, rehab)? @ -No Was there de-escalation of care discussed even if they declined (Discuss DNR or withdrawal of care, Hospice)? DNR status @ -No What co-morbidities impacted this encounter? (DM, HTN, Smoking, COPD, CAD, Cancer, CVA, ARF, Chemo, Hep., AIDS, mental health diagnosis, sleep apnea, morbid obesity)? @ -None Was patient admitted / discharged? Hospital course, mention meds given and route, prescriptions, significant lab abnormalities, going to OR and other pertinent info. @ -Discharge patient fully catheter was flowing he states his pressure had recent alleviated. Patient does have noted bacteria with recent Mohan catheter exchange. Patient was placed on oral antibiotics vitals are stable patient has no flank pain. We did discuss close follow-up and return parameters. Undiagnosed new problem with uncertain prognosis? @ -No Drug Therapy requiring intensive monitoring for toxicity (Heparin, Nitro, Insulin, Cardizem)? @ -No Were any procedures done? @ -No Diagnosis/symptom? @ -UTI, Mohan catheter, complication Acute, or Chronic, or Acute on Chronic? @ -Acute Uncomplicated (without systemic symptoms) or Complicated (systemic symptoms)? @ -Uncomplicated Side effects of treatment? @ -No Exacerbation, Progression, or Severe Exacerbation? @ -No Poses a threat to life or bodily function? How? (Chest pain, [place], [place], pneumonia, PE, COPD, DKA, ARF, appy, cholecystitis, CVA, Diverticulitis, Homicidal, Suicidal, threat to staff... and all critical care pts) @ -No - Lab Data Lab Results 01/12/23 Range/Units 22:34 Urine Color Light Yellow Urine Appearance Cloudy (Clear) Urine pH 7.0 (5.0-8.0) Ur Specific [place] 1.017 (1.001-1.035) Urine Protein 3+ H (Negative) Urine Glucose (UA) Negative (Negative) Urine Ketones Negative (Negative) Urine Blood Negative (Negative) Urine Nitrite Negative (Negative) Urine Bilirubin Negative (Negative) Urine Urobilinogen <2.0 (<2.0) mg/dL Ur Leukocyte Esterase Large H (Negative) Urine RBC 4 (0-5) /hpf Urine WBC 126 H (0-5) /hpf Urine Bacteria Rare H (None) /hpf Urine Mucus Rare H (None) /hpf Disposition Clinical Impression: Complication of Mohan catheter, UTI (urinary tract infection) Disposition: HOME SELF-CARE Condition: Stable Instructions (If sedation given, give patient instructions): Urinary Tract Infection in Men (ED) Additional Instructions: Please return to the Emergency Department if symptoms worsen or any other concerns. Prescriptions: Sulfamethox-Tmp 800-160Mg [Bactrim Ds] 1 each PO Q12HR #14 tab Is patient prescribed a controlled substance at d/c from ED?: No Referrals: [facility],Clinic [Primary Care Provider] - 1-2 days Time of Disposition: 23:59
== END 2023-01-13 00:32 | disposition home or self-care (01) ==
LOC: EC 22:22
DX: T83.091A Other mechanical complication of indwelling urethral catheter, initial encounter (principal); N39.0 Urinary tract infection, site not specified; E78.5 Hyperlipidemia, unspecified; Z79.899 Other long term (current) drug therapy; Z87.891 Personal history of nicotine dependence
CPT/HCPCS: 81001; 87086

== ENCOUNTER 2023-01-13 07:08 | Emergency (ER) | payer MEDICARE, BC ==
--- NOTE | 2023-01-13 07:23 | ED ---
General Adult HPI - General Chief complaint: Recheck/Abnormal Lab/Rx Stated complaint: catheter malfunction Time Seen by Provider: 01/13/23 07:14 Source: EMS Mode of arrival: EMS - History of Present Illness Initial comments: Dictation was produced using [employer] dictation software. please excuse any grammatical, word or spelling errors. Chief Complaint: 82-year-old male well-known to emergency department presents emergency department for chief complaint of malfunctioning Mohan catheter History of Present Illness: Is 82-year-old male he is well-known by our emergency department. He has alleged history of dementia. Patient states that he was here last night for the same complaint. States that they should've just change his Mohan catheter. Patient does not know when his Mohan catheter was last changed. States that his Mohan catheter is not functioning causing pressure to his suprapubic area and penis. Patient has history of chronic indwelling Mohan catheter. He doesn't know why he needs a Mohan catheter. Furthermore, he reports that his leg bag has not been collected urine since yesterday. denies any fever. No other complaints. The ROS documented in this emergency department record has been reviewed and confirmed by me. Those systems with pertinent positive or negative responses have been documented in the HPI. All other systems are other negative and/or noncontributory. - Related Data Home Medications Medication Instructions Recorded Confirmed Aspirin EC [Ecotrin] 325 mg PO DAILY 10/15/14 03/02/22 Lovastatin [Mevacor] 40 mg PO HS 10/15/14 03/02/22 Cholecalciferol [Vitamin D3 (25 25 mcg PO DAILY 08/04/21 02/26/22 Mcg = 1000 Iu)] Divalproex ER [Depakote ER] 500 mg PO HS 08/04/21 03/02/22 Donepezil HCl [Aricept] 10 mg PO HS 08/04/21 03/02/22 Magnesium Hydroxide [Milk of 1 dose PO DIRECTED PRN 02/26/22 02/26/22 Magnesia] Multivitamins, Thera [Multivitamin 1 tab PO DAILY 02/26/22 03/02/22 (formulary)] Sennosides [Senna] 1 tab PO DAILY 02/26/22 03/02/22 Previous Rx's Medication Instructions Recorded Sulfamethox-Tmp 800-160Mg [Bactrim 1 tab PO Q12HR 5 Days #10 tab 06/05/22 DS 800-160 mg] Nitrofurantoin Monohyd/M-Cryst 100 mg PO Q12HR #14 cap 06/29/22 [Macrobid] cefUROXime axetiL [Ceftin] 500 mg PO BID 10 Days #20 tab 08/04/22 cefUROXime axetiL [Ceftin] 500 mg PO BID 10 Days #20 tab 09/10/22 Cephalexin [Keflex] 500 mg PO Q6HR #28 cap 10/04/22 Cephalexin [Keflex] 500 mg PO QID #28 cap 11/11/22 Cephalexin [Keflex] 500 mg PO QID 7 Days #28 cap 12/11/22 Sulfamethox-Tmp 800-160Mg [Bactrim 1 each PO Q12HR #14 tab 01/12/23 Ds] Allergies Allergy/AdvReac Type Severity Reaction Status Date / Time No Known Allergies Allergy Verified 12/07/22 20:30 Review of Systems ROS Statement: Those systems with pertinent positive or pertinent negative responses have been documented in the HPI. ROS Other: All systems not noted in ROS Statement are negative. Past Medical History Past Medical History: Hyperlipidemia, Prostate Disorder Additional Past Medical History / Comment(s): covid fall 2020, PATIENT IS ABLE TO SIGN HIS OWN CONSENT. chronic mohan History of Any Multi-Drug Resistant Organisms: None Reported Additional Past Surgical History / Comment(s): KIDNEY STONES. Bilateral foot surgery Past Psychological History: No Psychological Hx Reported Smoking Status: Former smoker Past Alcohol Use History: None Reported Past Drug Use History: None Reported - Past Family History Mother Family Medical History: Unable to Obtain General Exam - General Exam Comments Initial Comments: PHYSICAL EXAM: General Impression: Alert and oriented x3, not in acute distress HEENT: Normocephalic atraumatic, extra-ocular movements intact, pupils equal and reactive to light bilaterally, mucous membranes moist. Cardiovascular: Heart regular rate and rhythm Chest: Able to complete full sentences, no retractions, no tachypnea Abdomen: abdomen soft, mild tenderness to the suprapubic area, non-distended, no organomegaly Musculoskeletal: Pulses present and equal in all extremities, no peripheral edema Motor: no focal deficits noted Neurological: CN II-XII grossly intact, no focal motor or sensory deficits noted Skin: Intact with no visualized rashes Psych: Normal affect and mood Course Vital Signs 01/13/23 07:12 Pulse Rate 91 Respiratory 18 Rate Blood Pressure 191/98 O2 Sat by Pulse 100 Oximetry Medical Decision Making - Medical Decision Making Was pt. sent in by a medical professional or institution (, SIMON, IMMIGRATION INVESTIGATOR, urgent care, hospital, or intermediate...) When possible be specific @ -No Did you speak to anyone other than the patient for history (EMS, parent, family, police, friend...)? What history was obtained from this source @ -No Did you review nursing and triage notes (agree or disagree)? Why? @ -I reviewed and agree with nursing and triage notes Were old charts reviewed (outside hosp., previous admission, EMS record, old EKG, old radiological studies, urgent care reports/EKG's, intermediate records)? Report findings @ -No old charts were reviewed Differential Diagnosis (chest pain, altered mental status, abdominal pain women, abdominal pain men, vaginal bleeding, musculoskeletal, weakness, fever, dyspnea, syncope, headache, dizziness, GI bleed, back pain, seizure, CVA, palpatations, mental health)? @ -Mohan catheter malfunction, cystitis, urinary tract infection, urethritis EKG interpreted by me (3pts min.). @ -None done X-rays interpreted by me (1pt min.). @ -None done CT interpreted by me (1pt min.). @ -None done U/S interpreted by me (1pt. min.). @ -None done What testing was considered but not performed or refused? (CT, X-rays, U/S, labs)? Why? @ -None What meds were considered but not given or refused? Why? @ -None Did you discuss the management of the patient with other professionals (professionals i.e. SIMON Lenz, IMMIGRATION INVESTIGATOR, lab, RT, psych nurse, healthcare social worker, utility bill collector, teacher, financial aids officer, therapeutic case manager)? Give summary @ -No Was smoking cessation discussed for >3mins.? @ -No Was critical care preformed (if so, how long)? @ -No Were there social determinants of health that impacted care today? How? (Homelessness, low income, unemployed, alcoholism, drug addiction, transportation, low edu. Level, literacy, decrease access to med. care, group home, rehab)? @ -No Was there de-escalation of care discussed even if they declined (Discuss DNR or withdrawal of care, Hospice)? DNR status @ -No What co-morbidities impacted this encounter? (DM, HTN, Smoking, COPD, CAD, Cancer, CVA, ARF, Chemo, Hep., AIDS, mental health diagnosis, sleep apnea, morbid obesity)? @ -None Was patient admitted / discharged? Hospital course, mention meds given and route, prescriptions, significant lab abnormalities, going to OR and other pertinent info. @ -82-year-old male with chief complaint of malfunctioning Mohan catheter. Bladder scan shows 350 mL of urine. Mohan catheter change with good functioning. Patient discharged. Undiagnosed new problem with uncertain prognosis? @ -No Drug Therapy requiring intensive monitoring for toxicity (Heparin, Nitro, Insulin, Cardizem)? @ -No Were any procedures done? @ -No Diagnosis/symptom? Acute, or Chronic, or Acute on Chronic? Uncomplicated (without systemic symptoms) or Complicated (systemic symptoms)? @ -1. Acute uncomplicated Mohan catheter malfunction Side effects of treatment? @ -No Exacerbation, Progression, or Severe Exacerbation? @ -No Poses a threat to life or bodily function? How? (Chest pain, [place], [place], pneumonia, PE, COPD, DKA, ARF, appy, cholecystitis, CVA, Diverticulitis, Homicidal, Suicida l, threat to staff... and all critical care pts) @ -yes Disposition Clinical Impression: Malfunction of Mohan catheter Disposition: HOME SELF-CARE Condition: Good Instructions (If sedation given, give patient instructions): Mohan Catheter Placement and Care (ED) Is patient prescribed a controlled substance at d/c from ED?: No Referrals: [facility],Clinic [Primary Care Provider] - 1-2 days Time of Disposition: 07:57
[2023-01-13 08:33] LABS: Calcium 8.8 mg/dL (8.4-10.2); Potassium 4.2 mmol/L (3.5-5.1)
[2023-01-13 09:26] VITALS: BP 145/77; PULSE 77; RESP 19; TEMP 98.9
== END 2023-01-13 09:26 | disposition home or self-care (01) ==
LOC: EC 07:08
DX: T83.018A Breakdown (mechanical) of other urinary catheter, initial encounter (principal); E78.5 Hyperlipidemia, unspecified; Z79.82 Long term (current) use of aspirin; Z79.899 Other long term (current) drug therapy; Z87.891 Personal history of nicotine dependence; Z86.16 Personal history of COVID-19
CPT/HCPCS: 36415; 51702; 51798; 80048; 99283

== ENCOUNTER 2023-01-13 15:34 | Emergency (ER) | payer MEDICARE, BC ==
[2023-01-13 15:48] VITALS: TEMP 98
--- NOTE | 2023-01-13 16:03 | ED ---
General Adult HPI - General Chief complaint: Urogenital Stated complaint: Revisit - Catheter Issues Time Seen by Provider: 01/13/23 15:50 Source: patient, RN notes reviewed, old records reviewed Mode of arrival: ambulatory Limitations: no limitations - History of Present Illness Initial comments: This is an 82-year-old male presents emergency Department complaining that he had a Mohan catheter placed last night and he still hasn't had any urine output from it. Patient states since then he's been having suprapubic abdominal pain. Patient denies any blood at any time. Patient denies any fever chills. Patient denies any back pain. Patient denies any nausea vomiting. Patient states she's had a Mohan in for approximately a year and a half - Related Data Home Medications Medication Instructions Recorded Confirmed Aspirin EC [Ecotrin] 325 mg PO DAILY 10/15/14 03/02/22 Lovastatin [Mevacor] 40 mg PO HS 10/15/14 03/02/22 Cholecalciferol [Vitamin D3 (25 25 mcg PO DAILY 08/04/21 02/26/22 Mcg = 1000 Iu)] Divalproex ER [Depakote ER] 500 mg PO HS 08/04/21 03/02/22 Donepezil HCl [Aricept] 10 mg PO HS 08/04/21 03/02/22 Magnesium Hydroxide [Milk of 1 dose PO DIRECTED PRN 02/26/22 02/26/22 Magnesia] Multivitamins, Thera [Multivitamin 1 tab PO DAILY 02/26/22 03/02/22 (formulary)] Sennosides [Senna] 1 tab PO DAILY 02/26/22 03/02/22 Previous Rx's Medication Instructions Recorded Sulfamethox-Tmp 800-160Mg [Bactrim 1 tab PO Q12HR 5 Days #10 tab 06/05/22 DS 800-160 mg] Nitrofurantoin Monohyd/M-Cryst 100 mg PO Q12HR #14 cap 06/29/22 [Macrobid] cefUROXime axetiL [Ceftin] 500 mg PO BID 10 Days #20 tab 08/04/22 cefUROXime axetiL [Ceftin] 500 mg PO BID 10 Days #20 tab 09/10/22 Cephalexin [Keflex] 500 mg PO Q6HR #28 cap 10/04/22 Cephalexin [Keflex] 500 mg PO QID #28 cap 11/11/22 Cephalexin [Keflex] 500 mg PO QID 7 Days #28 cap 12/11/22 Sulfamethox-Tmp 800-160Mg [Bactrim 1 each PO Q12HR #14 tab 01/12/23 Ds] Allergies Allergy/AdvReac Type Severity Reaction Status Date / Time No Known Allergies Allergy Verified 12/07/22 20:30 Review of Systems ROS Statement: Those systems with pertinent positive or pertinent negative responses have been documented in the HPI. ROS Other: All systems not noted in ROS Statement are negative. Past Medical History Past Medical History: Hyperlipidemia, Prostate Disorder Additional Past Medical History / Comment(s): covid fall 2020, PATIENT IS ABLE TO SIGN HIS OWN CONSENT. chronic mohan History of Any Multi-Drug Resistant Organisms: None Reported Additional Past Surgical History / Comment(s): KIDNEY STONES. Bilateral foot surgery Past Psychological History: No Psychological Hx Reported Smoking Status: Former smoker Past Alcohol Use History: None Reported Past Drug Use History: None Reported - Past Family History Mother Family Medical History: Unable to Obtain General Exam - General Exam Comments Initial Comments: GENERAL: Patient is well-developed and well-nourished. Patient is nontoxic and well- hydrated and is in moderate distress. ENT: Neck is soft and supple. No significant lymphadenopathy is noted. Oropharynx is clear. Moist mucous membranes. Neck has full range of motion without eliciting any pain. EYES: The sclera were anicteric and conjunctiva were pink and moist. Extraocular movements were intact and pupils were equal round and reactive to light. Eyelids were unremarkable. PULMONARY: Unlabored respirations. Good breath sounds bilaterally. No audible rales rhonchi or wheezing was noted. CARDIOVASCULAR: There is a regular rate and rhythm without any murmurs gallops or rubs. ABDOMEN: Patient has suprapubic distention and tenderness SKIN: Skin is clear with no lesions or rashes and otherwise unremarkable. NEUROLOGIC: Patient is alert and oriented x3. Cranial nerves II through XII are grossly intact. Motor and sensory are also intact. Normal speech, volume and content. Symmetrical smile. MUSCULOSKELETAL: Normal extremities with adequate strength and full range of motion. LYMPHATICS: No significant lymphadenopathy is noted PSYCHIATRIC: Normal psychiatric evaluation. Limitations: no limitations Course Vital Signs 01/13/23 15:45 Temperature 98 F Pulse Rate 103 H Respiratory 20 Rate Blood Pressure 185/90 O2 Sat by Pulse 98 Oximetry Medical Decision Making - Medical Decision Making Was pt. sent in by a medical professional or institution (SIMON Lenz, SENIOR POLICY ANALYST, urgent care, hospital, or jail...) When possible be specific @ -No Did you speak to anyone other than the patient for history (EMS, parent, family, police, friend...)? What history was obtained from this source @ -No Did you review nursing and triage notes (agree or disagree)? Why? @ -I reviewed and agree with nursing and triage notes Were old charts reviewed (outside hosp., previous admission, EMS record, old EKG, old radiological studies, urgent care reports/EKG's, jail records)? Report findings @ -I reviewed prior charts on this patient and prior lab work Differential Diagnosis (chest pain, altered mental status, abdominal pain women, abdominal pain men, vaginal bleeding, weakness, fever, dyspnea, syncope, headache, dizziness, GI bleed, back pain, seizure, CVA, palpatations, mental health, musculoskeletal)? @ -Differential Abdominal Pain Men: Appendicitis, cholecystitis, diverticulosis, urinary retention, ischemic bowel, pancreatitis, hepatitis, UTI, gastroenteritis, AAA, incarcerated hernia, bowel obstruction, constipation, inflammatory bowel, hepatitis, peptic ulcer disease, splenic infarction, perforated viscus, testicular torsion, this is not meant to be an all-inclusive list EKG interpreted by me (3pts min.). @ -As above X-rays interpreted by me (1pt min.). @ -None done CT interpreted by me (1pt min.). @ -None done U/S interpreted by me (1pt. min.). @ -None done What testing was considered but not performed or refused? (CT, X-rays, U/S, labs)? Why? @ -None What meds were considered but not given or refused? Why? @ -None Did you discuss the management of the patient with other professionals (professionals i.e. SIMON Lenz, SENIOR POLICY ANALYST, lab, RT, psych nurse, social scientist, retort furnace operator, teacher, [employer] revenue officer, nurse outreach case manager)? Give summary @ -No Was smoking cessation discussed for >3mins.? @ -No Was critical care preformed (if so, how long)? @ -No Were there social determinants of health that impacted care today? How? (Homelessness, low income, unemployed, alcoholism, drug addiction, transportation, low edu. Level, literacy, decrease access to med. care, group home, rehab)? @ -No Was there de-escalation of care discussed even if they declined (Discuss DNR or withdrawal of care, Hospice)? DNR status @ -No What co-morbidities impacted this encounter? (DM, HTN, Smoking, COPD, CAD, Cancer, CVA, ARF, Chemo, Hep., AIDS, mental health diagnosis, sleep apnea, morbid obesity)? @ -None Was patient admitted / discharged? Hospital course, mention meds given and route, prescriptions, significant lab abnormalities, going to OR and other pertinent info. @ -Patient had 400 mL's on the bladder scanner and when he was irrigated all 400 EMS came out and the patient felt considerably better and the Mohan was draining urine at this time so patient was asymptomatic so patient will be discharged home Undiagnosed new problem with uncertain prognosis? @ -No Drug Therapy requiring intensive monitoring for toxicity (Heparin, Nitro, Insulin, Cardizem)? @ -No Were any procedures done? @ -No Diagnosis/symptom? @ -Catheter issues Acute, or Chronic, or Acute on Chronic? @ -Acute Uncomplicated (without systemic symptoms) or Complicated (systemic symptoms)? @ -Uncomplicated Side effects of treatment? @ -No Exacerbation, Progression, or Severe Exacerbation? @ -No Poses a threat to life or bodily function? How? (Chest pain, [place], [place], pneumonia, PE, COPD, DKA, ARF, appy, cholecystitis, CVA, Diverticulitis, Homicidal, Suicidal, threat to staff... and all critical care pts) @ -No Disposition Clinical Impression: Problem with Mohan catheter Disposition: HOME SELF-CARE Condition: Good Instructions (If sedation given, give patient instructions): Mohan Catheter Placement and Care (ED) Is patient prescribed a controlled substance at d/c from ED?: No Referrals: [facility],Clinic [Primary Care Provider] - 1-2 days Time of Disposition: 17:30
[2023-01-13 18:09] VITALS: BP 137/67; PULSE 80; RESP 18
== END 2023-01-13 18:09 | disposition home or self-care (01) ==
LOC: EC 15:34
DX: T83.091A Other mechanical complication of indwelling urethral catheter, initial encounter (principal); E78.5 Hyperlipidemia, unspecified; Z87.891 Personal history of nicotine dependence; Z79.82 Long term (current) use of aspirin; Z79.899 Other long term (current) drug therapy; Z86.16 Personal history of COVID-19
CPT/HCPCS: 51702; 99283

== ENCOUNTER 2023-01-31 20:03 | Emergency (ER) | payer MEDICARE, BC ==
[2023-01-31 21:15] VITALS: TEMP 98
--- NOTE | 2023-01-31 21:51 | ED ---
Male Urogenital HPI - General Source: patient Mode of arrival: ambulatory <Jeanette Roberts - Last Filed: 01/31/23 21:50> - General Source: patient, family, RN notes reviewed Mode of arrival: ambulatory Limitations: no limitations - History of Present Illness MD Complaint: other (Suprapubic pain, Mohan catheter blockage) <Tatiana Lora - Last Filed: 02/01/23 00:31> - General Chief complaint: Urogenital Stated complaint: CATHETER NOT WORKING Time Seen by Provider: 01/31/23 21:50 - History of Present Illness Initial comments: Patient is an 82-year-old male presenting with chief complaint of clogged catheter. Patient states that about 2 hours he noticed the catheter was a any anymore. He tried to flush it at home. He is noting increasing pelvic pain. (Jeanette Roberts) When I went to evaluate the patient, he states that the pain has continued increased since being here. Denies any nausea or vomiting. He cannot remember when his catheter was last changed. Patient has had recurrent problems with his Mohan catheter, resulting in multiple ER visits. He has a chronic indwelling Mohan catheter, which he believes has been there for about 1.5 years at this point. (Tatiana Lora) - Related Data Home Medications Medication Instructions Recorded Confirmed Aspirin EC [Ecotrin] 325 mg PO DAILY 10/15/14 03/02/22 Lovastatin [Mevacor] 40 mg PO HS 10/15/14 03/02/22 Cholecalciferol [Vitamin D3 (25 25 mcg PO DAILY 08/04/21 02/26/22 Mcg = 1000 Iu)] Divalproex ER [Depakote ER] 500 mg PO HS 08/04/21 03/02/22 Donepezil HCl [Aricept] 10 mg PO HS 08/04/21 03/02/22 Magnesium Hydroxide [Milk of 1 dose PO DIRECTED PRN 02/26/22 02/26/22 Magnesia] Multivitamins, Thera [Multivitamin 1 tab PO DAILY 02/26/22 03/02/22 (formulary)] Sennosides [Senna] 1 tab PO DAILY 02/26/22 03/02/22 Previous Rx's Medication Instructions Recorded Sulfamethox-Tmp 800-160Mg [Bactrim 1 tab PO Q12HR 5 Days #10 tab 06/05/22 DS 800-160 mg] Nitrofurantoin Monohyd/M-Cryst 100 mg PO Q12HR #14 cap 06/29/22 [Macrobid] cefUROXime axetiL [Ceftin] 500 mg PO BID 10 Days #20 tab 08/04/22 cefUROXime axetiL [Ceftin] 500 mg PO BID 10 Days #20 tab 09/10/22 Cephalexin [Keflex] 500 mg PO Q6HR #28 cap 10/04/22 Cephalexin [Keflex] 500 mg PO QID #28 cap 11/11/22 Cephalexin [Keflex] 500 mg PO QID 7 Days #28 cap 12/11/22 Sulfamethox-Tmp 800-160Mg [Bactrim 1 each PO Q12HR #14 tab 01/12/23 Ds] Amoxic-Pot Clav 875-125Mg 1 tab PO Q12HR 10 Days #20 tab 01/16/23 [Augmentin 875-125] cefUROXime axetiL [Ceftin] 500 mg PO BID 10 Days #20 tab 02/01/23 Allergies Allergy/AdvReac Type Severity Reaction Status Date / Time No Known Allergies Allergy Verified 01/31/23 21:15 Review of Systems ROS Other: All systems not noted in ROS Statement are negative. <Jeanette Roberts - Last Filed: 01/31/23 21:50> ROS Other: All systems not noted in ROS Statement are negative. <Tatiana Lora - Last Filed: 02/01/23 00:31> ROS Statement: Those systems with pertinent positive or pertinent negative responses have been documented in the HPI. Past Medical History Past Medical History: Hyperlipidemia, Prostate Disorder Additional Past Medical History / Comment(s): covid fall 2020, PATIENT IS ABLE TO SIGN HIS OWN CONSENT. chronic mohan History of Any Multi-Drug Resistant Organisms: None Reported Additional Past Surgical History / Comment(s): KIDNEY STONES. Bilateral foot surgery Past Psychological History: No Psychological Hx Reported Smoking Status: Former smoker Past Alcohol Use History: None Reported Past Drug Use History: None Reported - Past Family History Mother Family Medical History: Unable to Obtain <Jeanette Roberts - Last Filed: 01/31/23 21:50> General Exam <Jeanette Roberts - Last Filed: 01/31/23 21:50> Limitations: no limitations General appearance: alert, in no apparent distress Head exam: Present: atraumatic, normocephalic, normal inspection Respiratory exam: Present: normal lung sounds bilaterally. Absent: respiratory distress, wheezes, rales, rhonchi, stridor Cardiovascular Exam: Present: regular rate, normal rhythm, normal heart sounds. Absent: systolic murmur, diastolic murmur, rubs, gallop, clicks GI/Abdominal exam: Present: soft, normal bowel sounds. Absent: distended, tenderness, guarding, rebound, rigid Neurological exam: Present: alert, oriented X3, CN II-XII intact Psychiatric exam: Present: normal affect, normal mood Skin exam: Present: warm, dry, intact, normal color. Absent: rash <Tatiana Lora - Last Filed: 02/01/23 00:31> - General Exam Comments Initial Comments: Visual Physical Exam Vital signs reviewed General: Well-appearing, nontoxic, no acute distress. Head: Normocephalic, atraumatic Eyes: PERRLA, EOMI ENT: Airway patent Chest: Nonlabored breathing Skin: No visual rash, normal skin tone Neuro: Alert and oriented 3 Musculoskeletal: No gross abnormalities (Jeanette Roberts) Course Vital Signs 01/31/23 21:09 Temperature 98 F Pulse Rate 65 Respiratory 18 Rate Blood Pressure 154/78 O2 Sat by Pulse 97 Oximetry Medical Decision Making <Tatiana Lora - Last Filed: 02/01/23 00:31> - Medical Decision Making This is an 82-year-old male who presents to the emergency department for problems with his Mohan catheter. Was pt. sent in by a medical professional or institution? @ -No Did you speak to anyone other than the patient for history? @ -No Did you review nursing and triage notes? @ -Yes, and I agree, it is accurate with regards to the patient's symptoms. Were old charts reviewed? @ -Yes, urine culture from 01/12/23. Differential Diagnosis? @ -Differential Mohan Catheter Problem: Blood clot, UTI, malposition, ureteral calculus, this is not meant to be an all- inclusive list. What testing was considered but not performed? (CT, X-rays, U/S, labs)? Why? @ -None What meds were considered but not given? Why? @ -None Did you discuss the management of the patient with other professionals? @ -No Did you reconcile home meds? @ -No Was smoking cessation discussed for >3mins.? @ -No Was critical care preformed (if so, how long)? @ -No Were there social determinants of health that impacted care today? How? (Homelessness, low income, unemployed, alcoholism, drug addiction, transportation, low edu. Level, literacy, decrease access to med. care, [place] [facility], rehab)? @ -No Was there de-escalation of care discussed even if they declined? (Discuss DNR or withdrawal of care, Hospice)? @ -No What co-morbidities impacted this encounter? (DM, HTN, Smoking, COPD, CAD, Cancer, CVA, Hep., AIDS, mental health diagnosis, sleep apnea, morbid obesity)? @ -Prostate disorder Was patient admitted / discharged? @ -Discharged. Patient's Mohan catheter was removed and replaced with a new one. Approximate 500 mL of urine output was obtained and the patient had resolution of abdominal pain. Urinalysis is positive for a UTI. Prior urine cultures have always been positive for Proteus Mirabilis. Most recently, this was shown to be resistant to Bactrim, ciprofloxacin, levofloxacin, and Macrobid. Prescription for Ceftin was subsequently provided with dosing instructions reviewed. He is given a dose of IM Rocephin in the emergency department. Undiagnosed new problem with uncertain prognosis? @ -None Drug Therapy requiring intensive monitoring for toxicity (Heparin, Nitro, Insulin, Cardizem)? @ -None Were any procedures done? @ -None Diagnosis/symptom? @ -Mohan catheter problem, UTI Acute, or Chronic, or Acute on Chronic? @ -Acute Uncomplicated (without systemic symptoms) or Complicated (systemic symptoms)? @ -Uncomplicated Side effects of treatment? @ -None Exacerbation, Progression, or Severe Exacerbation] @ -Not applicable Poses a threat to life or bodily function? @ -No Return precautions reviewed in depth, the patient is instructed to return to the emergency department with any new, worsening, or concerning symptoms. Patient verbalized understanding. This case was discussed in detail with the attending ED physician, Dr. Romano. Presentation, findings, and treatment plan discussed in detail as well. (Tatiana Lora) - Lab Data Lab Results 01/31/23 Range/Units 23:26 Urine Color Yellow Urine Appearance Cloudy (Clear) Urine pH 7.0 (5.0-8.0) Ur Specific [place] 1.021 (1.001-1.035) Urine Protein Trace H (Negative) Urine Glucose (UA) Negative (Negative) Urine Ketones 1+ H (Negative) Urine Blood Small H (Negative) Urine Nitrite Positive (Negative) Urine Bilirubin Negative (Negative) Urine Urobilinogen <2.0 (<2.0) mg/dL Ur Leukocyte Esterase Large H (Negative) Urine RBC 29 H (0-5) /hpf Urine WBC >182 H (0-5) /hpf Ur Squamous Epith Cells <1 (0-4) /hpf Amorphous Sediment Rare H (None) /hpf Urine Bacteria Occasional H (None) /hpf Urine Mucus Rare H (None) /hpf Disposition <Jeanette Roberts - Last Filed: 01/31/23 21:50> Is patient prescribed a controlled substance at d/c from ED?: No <Tatiana Lora - Last Filed: 02/01/23 00:31> Clinical Impression: Mohan catheter problem, UTI (urinary tract infection) Disposition: HOME SELF-CARE Instructions (If sedation given, give patient instructions): Urinary Tract Infection in Men (ED), Mohan Catheter Placement and Care (ED) Additional Instructions: Return to the emergency department with any new, worsening, or concerning symptoms. Take the antibiotic as prescribed for 10 days. Follow up with your primary care provider in 1-2 days. Prescriptions: cefUROXime axetiL [Ceftin] 500 mg PO BID 10 Days #20 tab Referrals: [facility],Clinic [Primary Care Provider] - 1-2 days
[2023-01-31 23:57] LABS: Amorphous Sediment,Urine Rare /hpf; Appearance,Urine Cloudy (Clear); Bacteria,Urine Occasional /hpf; Bilirubin,Urine Negative (Negative); Blood,Urine Small (Negative); Color,Urine Yellow; Glucose,Urine (UA) Negative (Negative); Ketones,Urine 1+ (Negative); Leukocyte Esterase,Urine Large (Negative); Mucus,Urine Rare /hpf; Nitrite,Urine Positive (Negative); Protein,Urine Trace (Negative); RBC,Urine 29 /hpf (0-5); Specific Gravity,Urine 1.021 (1.001-1.035); Squamous Epithelial Cell,Urine <1 /hpf (0-4); Urobilinogen,Urine <2.0 mg/dL (<2.0); WBC,Urine >182 /hpf (0-5)
[2023-02-01] MEDS ORDERED: cefTRIAXone 1,000 MG VIAL (IM USE) IM STA (00:09)
[2023-02-01 00:32] VITALS: BP 132/62; PULSE 62; RESP 16
== END 2023-02-01 00:32 | disposition home or self-care (01) ==
LOC: EC 20:03
DX: T83.091A Other mechanical complication of indwelling urethral catheter, initial encounter (principal); N39.0 Urinary tract infection, site not specified; E78.5 Hyperlipidemia, unspecified; Z79.82 Long term (current) use of aspirin; Z79.899 Other long term (current) drug therapy; Z87.891 Personal history of nicotine dependence; Z86.16 Personal history of COVID-19; Y84.6 Urinary catheterization as the cause of abnormal reaction of the patient, or of later complication, without mention of misadventure at the time of the procedure
CPT/HCPCS: 51702; 99284; 96372; 81001; 87086; J0696

== ENCOUNTER 2023-02-15 05:44 | Emergency (ER) | payer MEDICARE, BC ==
--- NOTE | 2023-02-15 06:05 | ED ---
General Adult HPI - General Chief complaint: Recheck/Abnormal Lab/Rx Stated complaint: cath change Time Seen by Provider: 02/15/23 05:47 Source: patient, EMS Mode of arrival: EMS Limitations: no limitations - History of Present Illness Initial comments: This is an 82-year-old male with a past medical history including chronic indwelling Mohan catheter presents emergency department via EMS for catheter malfunction. The patient has been seen emergency department several times for the same complaints and stated that he noted that the Mohan catheter stopped draining approximately 2 hours prior to arrival. The patient was in mild distress secondary to suprapubic tenderness and urinary retention. The patient himself denied any other acute pain or complaints at this time. The patient denied nausea, vomiting, fevers and chills. - Related Data Home Medications Medication Instructions Recorded Confirmed Aspirin EC [Ecotrin] 325 mg PO DAILY 10/15/14 03/02/22 Lovastatin [Mevacor] 40 mg PO HS 10/15/14 03/02/22 Cholecalciferol [Vitamin D3 (25 25 mcg PO DAILY 08/04/21 02/26/22 Mcg = 1000 Iu)] Divalproex ER [Depakote ER] 500 mg PO HS 08/04/21 03/02/22 Donepezil HCl [Aricept] 10 mg PO HS 08/04/21 03/02/22 Magnesium Hydroxide [Milk of 1 dose PO DIRECTED PRN 02/26/22 02/26/22 Magnesia] Multivitamins, Thera [Multivitamin 1 tab PO DAILY 02/26/22 03/02/22 (formulary)] Sennosides [Senna] 1 tab PO DAILY 02/26/22 03/02/22 Previous Rx's Medication Instructions Recorded Sulfamethox-Tmp 800-160Mg [Bactrim 1 tab PO Q12HR 5 Days #10 tab 06/05/22 DS 800-160 mg] Nitrofurantoin Monohyd/M-Cryst 100 mg PO Q12HR #14 cap 06/29/22 [Macrobid] cefUROXime axetiL [Ceftin] 500 mg PO BID 10 Days #20 tab 08/04/22 cefUROXime axetiL [Ceftin] 500 mg PO BID 10 Days #20 tab 09/10/22 Cephalexin [Keflex] 500 mg PO Q6HR #28 cap 10/04/22 Cephalexin [Keflex] 500 mg PO QID #28 cap 11/11/22 Cephalexin [Keflex] 500 mg PO QID 7 Days #28 cap 12/11/22 Sulfamethox-Tmp 800-160Mg [Bactrim 1 each PO Q12HR #14 tab 01/12/23 Ds] Amoxic-Pot Clav 875-125Mg 1 tab PO Q12HR 10 Days #20 tab 01/16/23 [Augmentin 875-125] cefUROXime axetiL [Ceftin] 500 mg PO BID 10 Days #20 tab 02/01/23 Allergies Allergy/AdvReac Type Severity Reaction Status Date / Time No Known Allergies Allergy Verified 01/31/23 21:15 Review of Systems ROS Statement: Those systems with pertinent positive or pertinent negative responses have been documented in the HPI. ROS Other: All systems not noted in ROS Statement are negative. Past Medical History Past Medical History: Hyperlipidemia, Prostate Disorder Additional Past Medical History / Comment(s): covid fall 2020, PATIENT IS ABLE TO SIGN HIS OWN CONSENT. chronic mohan History of Any Multi-Drug Resistant Organisms: None Reported Additional Past Surgical History / Comment(s): KIDNEY STONES. Bilateral foot surgery Past Psychological History: No Psychological Hx Reported Smoking Status: Former smoker Past Alcohol Use History: None Reported Past Drug Use History: None Reported - Past Family History Mother Family Medical History: Unable to Obtain General Exam Limitations: no limitations General appearance: alert, in distress (In mild distress 2/2 urinary retention) Head exam: Present: atraumatic, normocephalic, normal inspection Eye exam: Present: normal appearance, PERRL Pupils: Present: normal accommodation ENT exam: Present: normal exam, normal oropharynx, mucous membranes moist Neck exam: Present: normal inspection, full ROM Respiratory exam: Present: normal lung sounds bilaterally Cardiovascular Exam: Present: regular rate, normal rhythm, normal heart sounds GI/Abdominal exam: Present: soft, normal bowel sounds exam: Present: normal inspection (Mohan catheter in place) Extremities exam: Present: normal inspection, full ROM Back exam: Present: normal inspection, full ROM Neurological exam: Present: alert, oriented X3, CN II-XII intact Psychiatric exam: Present: normal affect, normal mood Skin exam: Present: warm, dry Course Vital Signs 02/15/23 05:48 Temperature 97.8 F Pulse Rate 60 Respiratory 20 Rate Blood Pressure 146/82 O2 Sat by Pulse 100 Oximetry Medical Decision Making - Medical Decision Making Was pt. sent in by a medical professional or institution (SIMON Lenz, POSTAL CLERK, urgent care, hospital, or long term...) When possible be specific @ -No Did you speak to anyone other than the patient for history (EMS, parent, family, police, friend...)? What history was obtained from this source @ -No Did you review nursing and triage notes (agree or disagree)? Why? @ -I reviewed and agree with nursing and triage notes Were old charts reviewed (outside hosp., previous admission, EMS record, old EKG, old radiological studies, urgent care reports/EKG's, long term records)? Report findings @ -No old charts were reviewed Differential Diagnosis (chest pain, altered mental status, abdominal pain women, abdominal pain men, vaginal bleeding, weakness, fever, dyspnea, syncope, headache, dizziness, GI bleed, back pain, seizure, CVA, palpatations, mental health)? @ -Acute urinary retention, UTI EKG interpreted by me (3pts min.). @ -None X-rays interpreted by me (1pt min.). @ -None done CT interpreted by me (1pt min.). @ -None done U/S interpreted by me (1pt. min.). @ -None done What testing was considered but not performed or refused? (CT, X-rays, U/S, labs)? Why? @ -None What meds were considered but not given or refused? Why? @ -None Did you discuss the management of the patient with other professionals (professionals i.e. SIMON Lenz, POSTAL CLERK, lab, RT, psych nurse, social worker masters, tank crewmember, teacher, collection officer, geriatric case manager)? Give summary @ -No Was smoking cessation discussed for >3mins.? @ -No Was critical care preformed (if so, how long)? @ -No Were there social determinants of health that impacted care today? How? (Homelessness, low income, unemployed, alcoholism, drug addiction, transportation, low edu. Level, literacy, decrease access to med. care, prison, rehab)? @ -No Was there de-escalation of care discussed even if they declined (Discuss DNR or withdrawal of care, Hospice)? DNR status @ -No What co-morbidities impacted this encounter? (DM, HTN, Smoking, COPD, CAD, Cancer, CVA, ARF, Chemo, Hep., AIDS, mental health diagnosis, sleep apnea, morbid obesity)? @ -Chronic urinary retention Was patient admitted / discharged? Hospital course, mention meds given and route, prescriptions, significant lab abnormalities, going to OR and other pertinent info. @ -The patient was seen and evaluated emergency department. On physical exam, the patient was in mild distress secondary to urinary retention. Vital signs admission were stable. Initially on arrival, it was attempted to flush the catheter however the catheter would not spontaneous he drained sufficiently therefore the Mohan catheter was replaced. Urinalysis was obtained. The patient had significant improvement on replacement of the Mohan catheter. UA showed trace leuk esterase and rare bacteria likely chronic colonization with the Mohan catheter. The patient did have any burning with urination therefore l aboratory treated as a UTI at this time. The patient was advised to continue to monitor his symptoms and to report back to the emergency department if they became acutely worse. The patient was agreeable to this and all his questions were answered appropriately. The patient was discharged home in stable condition. Undiagnosed new problem with uncertain prognosis? @ -No Drug Therapy requiring intensive monitoring for toxicity (Heparin, Nitro, Insulin, Cardizem)? @ -No Were any procedures done? @ -No Diagnosis/symptom? @ -Urinary catheter malfunction, resolved Acute, or Chronic, or Acute on Chronic? @ -Acute on chronic Uncomplicated (without systemic symptoms) or Complicated (systemic symptoms)? @ -Uncomplicated Side effects of treatment? @ -No Exacerbation, Progression, or Severe Exacerbation? @ -No Poses a threat to life or bodily function? How? (Chest pain, [place], [place], pneumonia, PE, COPD, DKA, ARF, appy, cholecystitis, CVA, Diverticulitis, Homicidal, Suicidal, threat to staff... and all critical care pts) @ -No - Lab Data Lab Results 02/15/23 Range/Units 06:01 Urine Color Light Yellow Urine Appearance Turbid (Clear) Urine pH 7.0 (5.0-8.0) Ur Specific [place] 1.016 (1.001-1.035) Urine Protein 2+ H (Negative) Urine Glucose (UA) Negative (Negative) Urine Ketones Trace H (Negative) Urine Blood Negative (Negative) Urine Nitrite Negative (Negative) Urine Bilirubin Negative (Negative) Urine Urobilinogen <2.0 (<2.0) mg/dL Ur Leukocyte Esterase Trace H (Negative) Urine RBC 10 H (0-5) /hpf Urine WBC 18 H (0-5) /hpf Ur Squamous Epith Cells <1 (0-4) /hpf Urine Bacteria Rare H (None) /hpf Disposition Clinical Impression: Urinary retention, Malfunction of Mohan catheter Disposition: HOME SELF-CARE Condition: Stable Instructions (If sedation given, give patient instructions): Mohan Catheter Placement and Care (ED) Is patient prescribed a controlled substance at d/c from ED?: No Referrals: None,Stated [Primary Care Provider] - 1-2 days Time of Disposition: 06:55
[2023-02-15 06:55] LABS: Appearance,Urine Turbid (Clear); Bacteria,Urine Rare /hpf; Bilirubin,Urine Negative (Negative); Blood,Urine Negative (Negative); Color,Urine Light Yellow; Glucose,Urine (UA) Negative (Negative); Ketones,Urine Trace (Negative); Leukocyte Esterase,Urine Trace (Negative); Nitrite,Urine Negative (Negative); Protein,Urine 2+ (Negative); RBC,Urine 10 /hpf (0-5); Specific Gravity,Urine 1.016 (1.001-1.035); Squamous Epithelial Cell,Urine <1 /hpf (0-4); Urobilinogen,Urine <2.0 mg/dL (<2.0); WBC,Urine 18 /hpf (0-5)
[2023-02-15 09:53] VITALS: BP 153/86; PULSE 75; RESP 18; TEMP 98.1
== END 2023-02-15 09:53 | disposition home or self-care (01) ==
LOC: EC 05:44
DX: T83.091A Other mechanical complication of indwelling urethral catheter, initial encounter (principal); R33.9 Retention of urine, unspecified; E78.5 Hyperlipidemia, unspecified; Z86.16 Personal history of COVID-19; Z87.891 Personal history of nicotine dependence; Z79.82 Long term (current) use of aspirin; Z79.899 Other long term (current) drug therapy
CPT/HCPCS: 51702; 81001; 99283

== ENCOUNTER 2023-02-15 14:44 | Emergency (ER) | payer MEDICARE, BC ==
[2023-02-15 15:05] VITALS: RESP 18
--- NOTE | 2023-02-15 15:48 | ED ---
General Adult HPI - General Chief complaint: Recheck/Abnormal Lab/Rx Stated complaint: Urinary retention Time Seen by Provider: 02/15/23 14:46 Source: patient, RN notes reviewed Mode of arrival: ambulatory Limitations: no limitations - History of Present Illness Initial comments: 82-year-old male with no significant past medical history presents to the emergency department with a chief complaint of urinary catheter problem. Patient was seen and evaluated at this facility 3 hours prior to his arrival. He reports that he had a Mohan placed here without difficulty. He reports since being at home he has not had any urinary output. He is complaining of suprapubic pressure. He denies any fevers, chills, flank pain, abdominal pain, nausea, vomiting, hematuria. - Related Data Home Medications Medication Instructions Recorded Confirmed Aspirin EC [Ecotrin] 325 mg PO DAILY 10/15/14 03/02/22 Lovastatin [Mevacor] 40 mg PO HS 10/15/14 03/02/22 Cholecalciferol [Vitamin D3 (25 25 mcg PO DAILY 08/04/21 02/26/22 Mcg = 1000 Iu)] Divalproex ER [Depakote ER] 500 mg PO HS 08/04/21 03/02/22 Donepezil HCl [Aricept] 10 mg PO HS 08/04/21 03/02/22 Magnesium Hydroxide [Milk of 1 dose PO DIRECTED PRN 02/26/22 02/26/22 Magnesia] Multivitamins, Thera [Multivitamin 1 tab PO DAILY 02/26/22 03/02/22 (formulary)] Sennosides [Senna] 1 tab PO DAILY 02/26/22 03/02/22 Previous Rx's Medication Instructions Recorded Sulfamethox-Tmp 800-160Mg [Bactrim 1 tab PO Q12HR 5 Days #10 tab 06/05/22 DS 800-160 mg] Nitrofurantoin Monohyd/M-Cryst 100 mg PO Q12HR #14 cap 06/29/22 [Macrobid] cefUROXime axetiL [Ceftin] 500 mg PO BID 10 Days #20 tab 08/04/22 cefUROXime axetiL [Ceftin] 500 mg PO BID 10 Days #20 tab 09/10/22 Cephalexin [Keflex] 500 mg PO Q6HR #28 cap 01/02/23 Cephalexin [Keflex] 500 mg PO QID #28 cap 11/11/22 Cephalexin [Keflex] 500 mg PO QID 7 Days #28 cap 12/11/22 Sulfamethox-Tmp 800-160Mg [Bactrim 1 each PO Q12HR #14 tab 01/12/23 Ds] Amoxic-Pot Clav 875-125Mg 1 tab PO Q12HR 10 Days #20 tab 01/16/23 [Augmentin 875-125] cefUROXime axetiL [Ceftin] 500 mg PO BID 10 Days #20 tab 02/01/23 Allergies Allergy/AdvReac Type Severity Reaction Status Date / Time No Known Allergies Allergy Verified 02/15/23 15:01 Review of Systems ROS Statement: Those systems with pertinent positive or pertinent negative responses have been documented in the HPI. ROS Other: All systems not noted in ROS Statement are negative. Past Medical History Past Medical History: Hyperlipidemia, Prostate Disorder Additional Past Medical History / Comment(s): covid fall 2020, PATIENT IS ABLE TO SIGN HIS OWN CONSENT. chronic mohan History of Any Multi-Drug Resistant Organisms: None Reported Additional Past Surgical History / Comment(s): KIDNEY STONES. Bilateral foot surgery Past Psychological History: No Psychological Hx Reported Smoking Status: Former smoker Past Alcohol Use History: None Reported Past Drug Use History: None Reported - Past Family History Mother Family Medical History: Unable to Obtain General Exam - General Exam Comments Initial Comments: General: Alert, in no acute distress Head: atraumatic normocephalic. Eyes PERRL, EOMI intact, mucous membranes moist Respiratory: Lungs clear to auscultation bilaterally Cardiovascular: Heart rate regular rate and rhythm Abdominal: Soft without guarding or rebound : Mohan catheter in place without erythema, edema the site Extremities: Normal inspection with full range of motion and normal capillary refill Neuroogic: alert and oriented 3, CN II-XII intact, able to ambulate with steady gait Skin: warm dry and intact with normal color Limitations: no limitations Course Vital Signs 02/15/23 14:57 Pulse Rate 80 Respiratory 18 Rate Blood Pressure 164/78 O2 Sat by Pulse 98 Oximetry - Reevaluation(s) Reevaluation #1: 02/15/23 15:55 RN at bedside performing irrigation to Mohan. Approximately 500 mL of clear yellow urine and collection bag Medical Decision Making - Medical Decision Making Was pt. sent in by a medical professional or institution (SIMON Lenz, DETECTIVE [employer], urgent care, hospital, or custodial...) When possible be specific @ -[No] Did you speak to anyone other than the patient for history (EMS, parent, family, police, friend...)? What history was obtained from this source @ -[No] Did you review nursing and triage notes (agree or disagree)? Why? @ -[I reviewed and agree with nursing and triage notes] Were old charts reviewed (outside hosp., previous admission, EMS record, old EKG, old radiological studies, urgent care reports/EKG's, custodial records)? Report findings @ -[No old charts were reviewed] Differential Diagnosis (chest pain, altered mental status, abdominal pain women, abdominal pain men, vaginal bleeding, weakness, fever, dyspnea, syncope, headache, dizziness, GI bleed, back pain, seizure, CVA, palpatations, mental health, musculoskeletal)? @ -[not applicable] EKG interpreted by me (3pts min.). @ -[As above] X-rays interpreted by me (1pt min.). @ -[None done] CT interpreted by me (1pt min.). @ -[None done] U/S interpreted by me (1pt. min.). @ -[None done] What testing was considered but not performed or refused? (CT, X-rays, U/S, labs)? Why? @ -[None] What meds were considered but not given or refused? Why? @ -[None] Did you discuss the management of the patient with other professionals (professionals i.e. SIMON Lenz, [employer], lab, RT, psych nurse, social worker assistant, paleologist, teacher, chief scientific officer, rifle case repairer)? Give summary @ -[No] Was smoking cessation discussed for >3mins.? @ -[No] Was critical care preformed (if so, how long)? @ -[No] Were there social determinants of health that impacted care today? How? (Homelessness, low income, unemployed, alcoholism, drug addiction, transportation, low edu. Level, literacy, decrease access to med. care, [facility], rehab)? @ -[No] Was there de-escalation of care discussed even if they declined (Discuss DNR or withdrawal of care, Hospice)? DNR status @ -[No] What co-morbidities impacted this encounter? (DM, HTN, Smoking, COPD, CAD, Cancer, CVA, ARF, Chemo, Hep., AIDS, mental health diagnosis, sleep apnea, morbid obesity)? @ -[None] Was patient admitted / discharged? Hospital course, mention meds given and route, prescriptions, significant lab abnormalities, going to OR and other pertinent info. @ - -Discharged. This is a 82-year-old male who presents to the emergency department with mohan catheter problem Patient had a thorough history and physical exam performed while in the ED. Physical exam reveals heart rate regular rate and rhythm, lungs clear to auscultation bilaterally abdomen is soft and nontender.. Mohan catheter was irrigated with approximately 500 mL of clear yellow urine output. I discussed the results in detail with the patient verbalized understanding and all questions were addressed. He was encouraged to follow up with his PCP in 1-2 days. Return precautions were discussed at length. Patient discharged in stable condition. Case discussed with GALE Mora who agrees with plan of care Undiagnosed new problem with uncertain prognosis? @ -[No] Drug Therapy requiring intensive monitoring for toxicity (Heparin, Nitro, Insulin, Cardizem)? @ -[No] Were any procedures done? @ -[No] Diagnosis/symptom? @ -Urinary Catheter Problem Acute, or Chronic, or Acute on Chronic? @ -acute Uncomplicated (without systemic symptoms) or Complicated (systemic symptoms)? @ uncomplicated Side effects of treatment? @ -[No] Exacerbation, Progression, or Severe Exacerbation? @ -[No] Poses a threat to life or bodily function? How? (Chest pain, [place], [place], pneumonia, PE, COPD, DKA, ARF, appy, cholecystitis, CVA, Diverticulitis, Homicidal, Suicidal, threat to staff... and all critical care pts) @ -low likelihood Disposition Clinical Impression: Urinary retention, Malfunction of Mohan catheter Disposition: HOME SELF-CARE Condition: Stable Additional Instructions: Please return to the nearest emergency department symptoms worsen or persist Is patient prescribed a controlled substance at d/c from ED?: No Referrals: [facility],Clinic [Primary Care Provider] - 1-2 days Jarad Eugene MD [STAFF PHYSICIAN] - 1-2 days Time of Disposition: 15:48
[2023-02-15 16:58] VITALS: BP 135/78; PULSE 78; TEMP 97.9
== END 2023-02-15 16:58 | disposition home or self-care (01) ==
LOC: EC 14:44
DX: T85.618A Breakdown (mechanical) of other specified internal prosthetic devices, implants and grafts, initial encounter (principal); E78.5 Hyperlipidemia, unspecified; Z79.82 Long term (current) use of aspirin; Z79.899 Other long term (current) drug therapy; Z86.16 Personal history of COVID-19; Z87.891 Personal history of nicotine dependence
CPT/HCPCS: 51798; 99283

== ENCOUNTER 2023-03-02 00:02 | Emergency (ER) | payer MEDICARE, BC ==
--- NOTE | 2023-03-02 01:44 | ED ---
Male Urogenital HPI - General Chief complaint: Urogenital Stated complaint: URINARY RETENTION Time Seen by Provider: 03/02/23 01:34 Source: patient, RN notes reviewed Mode of arrival: EMS Limitations: no limitations - History of Present Illness Initial comments: Patient is 82-year-old male presenting to the emergency room with dysfunctioning urinary catheter. He is well known to the emergency department and recurrent issues with urinary catheter drainage. 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 He denies any other complaints or concerns at this time including any chest pain, shortness of breath, abdominal pain not related to bladder distention and pain, nausea, vomiting, diarrhea, headache, dizziness, fevers or chills. In addition to his chronic urinary retention with Mohan catheter he has past medical history significant for hyperlipidemia and nephrolithiasis. - Related Data Home Medications Medication Instructions Recorded Confirmed Aspirin EC [Ecotrin] 325 mg PO DAILY 10/15/14 03/02/22 Lovastatin [Mevacor] 40 mg PO HS 10/15/14 03/02/22 Cholecalciferol [Vitamin D3 (25 25 mcg PO DAILY 08/04/21 02/26/22 Mcg = 1000 Iu)] Divalproex ER [Depakote ER] 500 mg PO HS 08/04/21 03/02/22 Donepezil HCl [Aricept] 10 mg PO HS 08/04/21 03/02/22 Magnesium Hydroxide [Milk of 1 dose PO DIRECTED PRN 02/26/22 02/26/22 Magnesia] Multivitamins, Thera [Multivitamin 1 tab PO DAILY 02/26/22 03/02/22 (formulary)] Sennosides [Senna] 1 tab PO DAILY 02/26/22 03/02/22 Previous Rx's Medication Instructions Recorded Sulfamethox-Tmp 800-160Mg [Bactrim 1 tab PO Q12HR 5 Days #10 tab 06/05/22 DS 800-160 mg] Nitrofurantoin Monohyd/M-Cryst 100 mg PO Q12HR #14 cap 06/29/22 [Macrobid] cefUROXime axetiL [Ceftin] 500 mg PO BID 10 Days #20 tab 08/04/22 cefUROXime axetiL [Ceftin] 500 mg PO BID 10 Days #20 tab 09/10/22 Cephalexin [Keflex] 500 mg PO Q6HR #28 cap 10/04/22 Cephalexin [Keflex] 500 mg PO QID #28 cap 11/11/22 Cephalexin [Keflex] 500 mg PO QID 7 Days #28 cap 12/11/22 Sulfamethox-Tmp 800-160Mg [Bactrim 1 each PO Q12HR #14 tab 01/12/23 Ds] Amoxic-Pot Clav 875-125Mg 1 tab PO Q12HR 10 Days #20 tab 01/16/23 [Augmentin 875-125] cefUROXime axetiL [Ceftin] 500 mg PO BID 10 Days #20 tab 02/01/23 Allergies Allergy/AdvReac Type Severity Reaction Status Date / Time No Known Allergies Allergy Verified 03/02/23 01:04 Review of Systems ROS Statement: Those systems with pertinent positive or pertinent negative responses have been documented in the HPI. ROS Other: All systems not noted in ROS Statement are negative. Past Medical History Past Medical History: Hyperlipidemia, Prostate Disorder Additional Past Medical History / Comment(s): covid fall 2020, PATIENT IS ABLE TO SIGN HIS OWN CONSENT. chronic mohan History of Any Multi-Drug Resistant Organisms: None Reported Additional Past Surgical History / Comment(s): KIDNEY STONES. Bilateral foot surgery Past Psychological History: No Psychological Hx Reported Smoking Status: Former smoker Past Alcohol Use History: None Reported Past Drug Use History: None Reported - Past Family History Mother Family Medical History: Unable to Obtain General Exam - General Exam Comments Initial Comments: GENERAL: No acute distress, well developed, well nourished. HEENT: Normocephalic, atraumatic. Pupils equal, round, reactive to light. Moist mucous membranes. LUNGS: No respiratory distress or use of accessory muscles. HEART: Regular rate.. ABDOMEN/: Non-distended. Urinary catheter in place without any urine output noted. No penile edema, clots or exudate. BACK: Normal inspection. EXTREMITIES: No edema. No tenderness. Moves all extremities. NEUROLOGIC: Alert & oriented x 3. CN II-XII grossly intact. PSYCHIATRIC: Normal affect and behavior. DERMATOLOGIC: Skin intact, without rashes or lesions noted. Limitations: no limitations Course Vital Signs 03/02/23 01:05 Temperature 97.8 F Pulse Rate 75 Respiratory 18 Rate Blood Pressure 199/84 O2 Sat by Pulse 98 Oximetry Medical Decision Making - Medical Decision Making Was pt. sent in by a medical professional or institution (SIMON Lenz, COORDINATE MEASURING EQUIPMENT OPERATOR, urgent care, hospital, or retirement...) When possible be specific @ -No Did you speak to anyone other than the patient for history (EMS, parent, family, police, friend...)? What history was obtained from this source @ -No Did you review nursing and triage notes (agree or disagree)? Why? @ -I reviewed and agree with nursing and triage notes Were old charts reviewed (outside hosp., previous admission, EMS record, old EKG, old radiological studies, urgent care reports/EKG's, retirement records)? Report findings @ -Yes, reviewed most recent neurology note on file. Differential Diagnosis (chest pain, altered mental status, abdominal pain women, abdominal pain men, vaginal bleeding, weakness, fever, dyspnea, syncope, headache, dizziness, GI bleed, back pain, seizure, CVA, palpatations, mental health, musculoskeletal)? @ -not applicable EKG interpreted by me (3pts min.). @ -None done X-rays interpreted by me (1pt min.). @ -None done CT interpreted by me (1pt min.). @ -None done U/S interpreted by me (1pt. min.). @ -None done What testing was considered but not performed or refused? (CT, X-rays, U/S, labs)? Why? @ -None What meds were considered but not given or refused? Why? @ -None Did you discuss the management of the patient with other professionals (professionals i.e. SIMON Lenz, COORDINATE MEASURING EQUIPMENT OPERATOR, lab, RT, psych nurse, social work supervisor, restaurant hourly manager, teacher, property portfolio officer, business case analyst)? Give summary @ -No Was smoking cessation discussed for >3mins.? @ -No Was critical care preformed (if so, how long)? @ -No Were there social determinants of health that impacted care today? How? (Homelessness, low income, unemployed, alcoholism, drug addiction, transportation, low edu. Level, literacy, decrease access to med. care, [facility], rehab)? @ -No Was there de-escalation of care discussed even if they declined (Discuss DNR or withdrawal of care, Hospice)? DNR status @ -No What co-morbidities impacted this encounter? (DM, HTN, Smoking, COPD, CAD, Cancer, CVA, ARF, Chemo, Hep., AIDS, mental health diagnosis, sleep apnea, morbid obesity)? @ -Prostate enlargement with chronic urinary retention Was patient admitted / discharged? Hospital course, mention meds given and route, prescriptions, significant lab abnormalities, going to OR and other pertinent info. @ -82-year-old male well know to the emergency department presenting to the ER with complaints of urinary catheter malfunction which he has for chronic urinary retention. He has had this difficulty in the past. He denies any other complaints or concerns. There is no indication for any diagnostic imaging or laboratory studies. He denies any need for any medications. Urinary catheter exchanged without complication with good urinary flow postexchange. No indication for further intervention. Encouraged good Mohan catheter care and follow-up with primary care provider and/or urologist as needed. Will discharge home in stable condition with chronic indwelling mohan catheter in place for urinary retention advising follow-up with primary care provider and urologist. Undiagnosed new problem with uncertain prognosis? @ -No Drug Therapy requiring intensive monitoring for toxicity (Heparin, Nitro, Insulin, Cardizem)? @ -No Were any procedures done? @ -No Diagnosis/symptom? @ -Urinary catheter malfunction Acute, or Chronic, or Acute on Chronic? @ -Acute on chronic Uncomplicated (without systemic symptoms) or Complicated (systemic symptoms)? @ -Uncomplicated Side effects of treatment? @ -No Exacerbation, Progression, or Severe Exacerbation? @ -No Poses a threat to life or bodily function? How? (Chest pain, [place], [place], pneumonia, PE, COPD, DKA, ARF, appy, cholecystitis, CVA, Diverticulitis, Homicidal, Suicidal, threat to staff... and all critical care pts) @ -No Case discussed with Dr. Wilkins Disposition Clinical Impression: Malfunction of Mohan catheter Disposition: HOME SELF-CARE Condition: Stable Instructions (If sedation given, give patient instructions): Mohan Catheter Placement and Care (ED) Additional Instructions: Maintain continuous urinary catheter placement. Keep the perineum clean and dry. Please follow-up with your primary care provider and urologist further recommendations. Please return to the Emergency Department if symptoms worsen or any other concerns. Is patient prescribed a controlled substance at d/c from ED?: No Referrals: [facility],Clinic [Primary Care Provider] - 1-2 days Time of Disposition: 01:40
[2023-03-02 02:45] VITALS: BP 146/72; PULSE 78; RESP 16; TEMP 97.9
== END 2023-03-02 02:45 | disposition home or self-care (01) ==
LOC: EC 00:02
DX: T83.091A Other mechanical complication of indwelling urethral catheter, initial encounter (principal); E78.5 Hyperlipidemia, unspecified; Z79.82 Long term (current) use of aspirin; Z79.899 Other long term (current) drug therapy; Z86.16 Personal history of COVID-19; Z87.891 Personal history of nicotine dependence
CPT/HCPCS: 51702; 99283

== ENCOUNTER 2023-03-08 16:27 | Emergency (ER) | payer MEDICARE, BC ==
[2023-03-08 17:17] VITALS: BP 156/80; PULSE 89; RESP 20; TEMP 98
--- NOTE | 2023-03-08 18:26 | ED ---
General Adult HPI - General Chief complaint: Urogenital Stated complaint: catheter issues Time Seen by Provider: 03/08/23 18:00 Source: patient, RN notes reviewed, old records reviewed Mode of arrival: ambulatory Limitations: no limitations - History of Present Illness Initial comments: This is an 82-year-old male who put presents emergency Department complaining that his catheter is not emptying normally. Patient states he went to flush out his urinary catheter which is been in place for a year and it did not flush appropriately. Patient states he started depression in the suprapubic region so he decided come to the emergency department. Patient denies any blood in the urine patient has any fever chills per patient as any back pain. - Related Data Home Medications Medication Instructions Recorded Confirmed Aspirin EC [Ecotrin] 325 mg PO DAILY 10/15/14 03/02/22 Lovastatin [Mevacor] 40 mg PO HS 10/15/14 03/02/22 Cholecalciferol [Vitamin D3 (25 25 mcg PO DAILY 08/04/21 02/26/22 Mcg = 1000 Iu)] Divalproex ER [Depakote ER] 500 mg PO HS 08/04/21 03/02/22 Donepezil HCl [Aricept] 10 mg PO HS 08/04/21 03/02/22 Magnesium Hydroxide [Milk of 1 dose PO DIRECTED PRN 02/26/22 02/26/22 Magnesia] Multivitamins, Thera [Multivitamin 1 tab PO DAILY 02/26/22 03/02/22 (formulary)] Sennosides [Senna] 1 tab PO DAILY 02/26/22 03/02/22 Previous Rx's Medication Instructions Recorded Sulfamethox-Tmp 800-160Mg [Bactrim 1 tab PO Q12HR 5 Days #10 tab 06/05/22 DS 800-160 mg] Nitrofurantoin Monohyd/M-Cryst 100 mg PO Q12HR #14 cap 06/29/22 [Macrobid] cefUROXime axetiL [Ceftin] 500 mg PO BID 10 Days #20 tab 08/04/22 cefUROXime axetiL [Ceftin] 500 mg PO BID 10 Days #20 tab 09/10/22 Cephalexin [Keflex] 500 mg PO Q6HR #28 cap 10/04/22 Cephalexin [Keflex] 500 mg PO QID #28 cap 11/11/22 Cephalexin [Keflex] 500 mg PO QID 7 Days #28 cap 12/11/22 Sulfamethox-Tmp 800-160Mg [Bactrim 1 each PO Q12HR #14 tab 01/12/23 Ds] Amoxic-Pot Clav 875-125Mg 1 tab PO Q12HR 10 Days #20 tab 01/16/23 [Augmentin 875-125] cefUROXime axetiL [Ceftin] 500 mg PO BID 10 Days #20 tab 02/01/23 Ciprofloxacin HCl [Cipro] 500 mg PO Q12HR #20 tablet 03/08/23 Allergies Allergy/AdvReac Type Severity Reaction Status Date / Time No Known Allergies Allergy Verified 03/10/23 05:54 Review of Systems ROS Statement: Those systems with pertinent positive or pertinent negative responses have been documented in the HPI. ROS Other: All systems not noted in ROS Statement are negative. Past Medical History Past Medical History: Hyperlipidemia, Prostate Disorder Additional Past Medical History / Comment(s): covid fall 2020, PATIENT IS ABLE TO SIGN HIS OWN CONSENT. chronic mohan History of Any Multi-Drug Resistant Organisms: None Reported Additional Past Surgical History / Comment(s): KIDNEY STONES. Bilateral foot surgery Past Psychological History: No Psychological Hx Reported Smoking Status: Former smoker Past Alcohol Use History: None Reported Past Drug Use History: None Reported - Past Family History Mother Family Medical History: Unable to Obtain General Exam - General Exam Comments Initial Comments: GENERAL: Patient is well-developed and well-nourished. Patient is nontoxic and well- hydrated and is in mild distress. ENT: Neck is soft and supple. No significant lymphadenopathy is noted. Oropharynx is clear. Moist mucous membranes. Neck has full range of motion without eliciting any pain. EYES: The sclera were anicteric and conjunctiva were pink and moist. Extraocular movements were intact and pupils were equal round and reactive to light. Eyelids were unremarkable. PULMONARY: Unlabored respirations. Good breath sounds bilaterally. No audible rales rhonchi or wheezing was noted. CARDIOVASCULAR: There is a regular rate and rhythm without any murmurs gallops or rubs. ABDOMEN: Patient has suprapubic tenderness and fullness SKIN: Skin is clear with no lesions or rashes and otherwise unremarkable. NEUROLOGIC: Patient is alert and oriented x3. Cranial nerves II through XII are grossly intact. Motor and sensory are also intact. Normal speech, volume and content. Symmetrical smile. MUSCULOSKELETAL: Normal extremities with adequate strength and full range of motion. No lower extremity swelling or edema. No calf tenderness. LYMPHATICS: No significant lymphadenopathy is noted PSYCHIATRIC: Normal psychiatric evaluation. Limitations: no limitations Course Vital Signs 03/08/23 17:13 Temperature 98.0 F Pulse Rate 89 Respiratory 20 Rate Blood Pressure 156/80 O2 Sat by Pulse 98 Oximetry Medical Decision Making - Medical Decision Making Was pt. sent in by a medical professional or institution (, SIMON, [employer], urgent care, hospital, or assisted...) When possible be specific @ -No Did you speak to anyone other than the patient for history (EMS, parent, family, police, friend...)? What history was obtained from this source @ -No Did you review nursing and triage notes (agree or disagree)? Why? @ -I reviewed and agree with nursing and triage notes Were old charts reviewed (outside hosp., previous admission, EMS record, old EKG, old radiological studies, urgent care reports/EKG's, assisted records)? Report findings @ -No old charts were reviewed Differential Diagnosis (chest pain, altered mental status, abdominal pain women, abdominal pain men, vaginal bleeding, weakness, fever, dyspnea, syncope, headache, dizziness, GI bleed, back pain, seizure, CVA, palpatations, mental health, musculoskeletal)? @ -Differential abdominal pain men EKG interpreted by me (3pts min.). @ -As above X-rays interpreted by me (1pt min.). @ -None done CT interpreted by me (1pt min.). @ -None done U/S interpreted by me (1pt. min.). @ -None done What testing was considered but not performed or refused? (CT, X-rays, U/S, labs)? Why? @ -None What meds were considered but not given or refused? Why? @ -None Did you discuss the management of the patient with other professionals (professionals i.e. SIMON Lenz, [employer], lab, RT, psych nurse, social media marketing specialist, research advisor, teacher, development officer, gearcase assembler)? Give summary @ -No Was smoking cessation discussed for >3mins.? @ -No Was critical care preformed (if so, how long)? @ -No Were there social determinants of health that impacted care today? How? (Homelessness, low income, unemployed, alcoholism, drug addiction, trans portation, low edu. Level, literacy, decrease access to med. care, skilled nursing, rehab)? @ -No Was there de-escalation of care discussed even if they declined (Discuss DNR or withdrawal of care, Hospice)? DNR status @ -No What co-morbidities impacted this encounter? (DM, HTN, Smoking, COPD, CAD, Cancer, CVA, ARF, Chemo, Hep., AIDS, mental health diagnosis, sleep apnea, morbid obesity)? @ -None Was patient admitted / discharged? Hospital course, mention meds given and route, prescriptions, significant lab abnormalities, going to OR and other pertinent info. @ -Cath removed and a new one placed patient feeling considerably better. Patient's urine was tested after the new catheter was put in. Patient had a urinary tract infection patient was given antibiotics in the emergency room and will be sent home with antibiotics Undiagnosed new problem with uncertain prognosis? @ -No] Drug Therapy requiring intensive monitoring for toxicity (Heparin, Nitro, Insulin, Cardizem)? @ -[No] Were any procedures done? @ -[No] Diagnosis/symptom? @ -Urinary tract infection Acute, or Chronic, or Acute on Chronic? @ -Acute Uncomplicated (without systemic symptoms) or Complicated (systemic symptoms)? @ -Complicated Side effects of treatment? @ -[No] Exacerbation, Progression, or Severe Exacerbation? @ -[No] Poses a threat to life or bodily function? How? (Chest pain, [place], [place], pneumonia, PE, COPD, DKA, ARF, appy, cholecystitis, CVA, Diverticulitis, Homicidal, Suicidal, threat to staff... and all critical care pts) @ -[No] - Lab Data Result diagrams: 03/08/23 19:38 03/08/23 19:38 Lab Results 03/08/23 03/08/23 03/08/23 Range/Units 19:38 19:38 19:44 WBC 9.7 (3.8-10.6) k/uL RBC 4.43 (4.30-5.90) m/uL Hgb 13.7 (13.0-17.5) gm/dL Hct 40.6 (39.0-53.0) % MCV 91.6 (80.0-100.0) fL MCH 30.9 (25.0-35.0) pg MCHC 33.7 (31.0-37.0) g/dL RDW 12.8 (11.5-15.5) % Plt Count 322 (150-450) k/uL MPV 7.0 Neutrophils % 64 % Lymphocytes % 24 % Monocytes % 7 % Eosinophils % 3 % Basophils % 1 % Neutrophils # 6.2 (1.3-7.7) k/uL Lymphocytes # 2.3 (1.0-4.8) k/uL Monocytes # 0.7 (0-1.0) k/uL Eosinophils # 0.3 (0-0.7) k/uL Basophils # 0.1 (0-0.2) k/uL Sodium 139 (137-145) mmol/L Potassium 4.1 (3.5-5.1) mmol/L Chloride 105 (98-107) mmol/L Carbon Dioxide 23 (22-30) mmol/L Anion Gap 11 mmol/L BUN 32 H (9-20) mg/dL Creatinine 1.24 (0.66-1.25) mg/dL Est GFR (CKD-EPI)AfAm 63 (>60 ml/min/1.73 sqM) Est GFR (CKD-EPI)NonAf 55 (>60 ml/min/1.73 sqM) Glucose 98 (74-99) mg/dL Calcium 8.9 (8.4-10.2) mg/dL Total Bilirubin 0.4 (0.2-1.3) mg/dL AST 20 (17-59) U/L ALT 15 (4-49) U/L Alkaline Phosphatase 79 (38-126) U/L Total Protein 6.1 L (6.3-8.2) g/dL Albumin 3.5 (3.5-5.0) g/dL Urine Color Yellow Urine Appearance Turbid (Clear) Urine pH 7.5 (5.0-8.0) Ur Specific Fletcher 1.022 (1.001-1.035) Urine Protein 3+ H (Negative) Urine Glucose (UA) Negative (Negative) Urine Ketones 1+ H (Negative) Urine Blood Large H (Negative) Urine Nitrite Positive (Negative) Urine Bilirubin Negative (Negative) Urine Urobilinogen <2.0 (<2.0) mg/dL Ur Leukocyte Esterase Large H (Negative) Urine RBC >182 H (0-5) /hpf Urine WBC >182 H (0-5) /hpf Ur Squamous Epith Cells 1 (0-4) /hpf Disposition Clinical Impression: Urinary tract infection Disposition: HOME SELF-CARE Condition: Good Instructions (If sedation given, give patient instructions): Urinary Tract Infection in Men (ED) Prescriptions: Ciprofloxacin HCl [Cipro] 500 mg PO Q12HR #20 tablet Is patient prescribed a controlled substance at d/c from ED?: No Referrals: [facility],Clinic [Primary Care Provider] - 1-2 days Time of Disposition: 20:48
[2023-03-08] MEDS ORDERED: LIDOCAINE 2% URO-JET JELLY 5 ML KIT URETHRAL ONE (18:45)
[2023-03-08 19:57] LABS: Basophils # (A) 0.1 k/uL (0-0.2); Basophils % (A) 1 %; Eosinophils # (A) 0.3 k/uL (0-0.7); Eosinophils % (A) 3 %; HCT 40.6 % (39.0-53.0); HGB 13.7 gm/dL (13.0-17.5); Lymphocytes # (A) 2.3 k/uL (1.0-4.8); Lymphocytes % (A) 24 %; MCH 30.9 pg (25.0-35.0); MCHC 33.7 g/dL (31.0-37.0); MCV 91.6 fL (80.0-100.0); Monocytes # (A) 0.7 k/uL (0-1.0); Monocytes % (A) 7 %; Neutrophils # (A) 6.2 k/uL (1.3-7.7); Neutrophils % (A) 64 %; Platelet Count 322 k/uL (150-450); RBC 4.43 m/uL (4.30-5.90); RDW 12.8 % (11.5-15.5); WBC 9.7 k/uL (3.8-10.6)
[2023-03-08 20:04] LABS: Appearance,Urine Turbid (Clear); Bilirubin,Urine Negative (Negative); Blood,Urine Large (Negative); Color,Urine Yellow; Glucose,Urine (UA) Negative (Negative); Ketones,Urine 1+ (Negative); Leukocyte Esterase,Urine Large (Negative); Nitrite,Urine Positive (Negative); PH, Urine 7.5 (5.0-8.0); Protein,Urine 3+ (Negative); RBC,Urine >182 /hpf (0-5); Specific Gravity,Urine 1.022 (1.001-1.035); Squamous Epithelial Cell,Urine 1 /hpf (0-4); Urobilinogen,Urine <2.0 mg/dL (<2.0); WBC,Urine >182 /hpf (0-5)
[2023-03-08 20:12] LABS: AST 20 U/L (17-59); African American GFR (CKD) 63 (>60 ml/min/1.73 sqM); Albumin 3.5 g/dL (3.5-5.0); Blood Urea Nitrogen 32 mg/dL (9-20); Calcium 8.9 mg/dL (8.4-10.2); Carbon Dioxide 23 mmol/L (22-30); Chloride 105 mmol/L (98-107); Glucose 98 mg/dL (74-99); Non-African American GFR(CKD) 55 (>60 ml/min/1.73 sqM); Total Bilirubin 0.4 mg/dL (0.2-1.3); Total Protein 6.1 g/dL (6.3-8.2)
[2023-03-08 20:30] LABS: ALT 15 U/L (4-49); Alkaline Phosphatase 79 U/L (38-126); Anion Gap 11 mmol/L; Potassium 4.1 mmol/L (3.5-5.1); Sodium 139 mmol/L (137-145)
[2023-03-08] MEDS ORDERED: cefTRIAXone IN SWFI 1,000 MG/10 ML SYRINGE IVP STA (20:31)
== END 2023-03-08 21:12 | disposition home or self-care (01) ==
LOC: EC 16:27
DX: N39.0 Urinary tract infection, site not specified (principal); E78.5 Hyperlipidemia, unspecified; Z87.891 Personal history of nicotine dependence; Z86.16 Personal history of COVID-19; Z79.82 Long term (current) use of aspirin; Z79.899 Other long term (current) drug therapy
CPT/HCPCS: 51798; 36415; 80053; 85025; 81001; 87086; 99284; 96374; 51702; J0696

== ENCOUNTER 2023-03-10 05:44 | Emergency (ER) | payer MEDICARE, BC ==
[2023-03-10 05:54] VITALS: PULSE 76
--- NOTE | 2023-03-10 06:14 | ED ---
General Adult HPI - General Chief complaint: Recheck/Abnormal Lab/Rx Stated complaint: Cath Complications Time Seen by Provider: 03/10/23 06:02 Source: patient Mode of arrival: EMS - History of Present Illness Initial comments: A 82-year-old male presents to the ED with a chief complaint catheter leak. Patient was seen here for this 2 days ago and had his catheter replaced. At that time it was noted that he had suprapubic pain and was found to have a UTI and started on ciprofloxacin. Urine culture is currently pending. States catheter was draining well initially however over the last 24 hours has noticed that it is leaking around his penis. Denies hematuria. Denies worsening in suprapubic pain. Denies flank pain. No other complaints. - Related Data Home Medications Medication Instructions Recorded Confirmed Aspirin EC [Ecotrin] 325 mg PO DAILY 10/15/14 03/02/22 Lovastatin [Mevacor] 40 mg PO HS 10/15/14 03/02/22 Cholecalciferol [Vitamin D3 (25 25 mcg PO DAILY 08/04/21 02/26/22 Mcg = 1000 Iu)] Divalproex ER [Depakote ER] 500 mg PO HS 08/04/21 03/02/22 Donepezil HCl [Aricept] 10 mg PO HS 08/04/21 03/02/22 Magnesium Hydroxide [Milk of 1 dose PO DIRECTED PRN 02/26/22 02/26/22 Magnesia] Multivitamins, Thera [Multivitamin 1 tab PO DAILY 02/26/22 03/02/22 (formulary)] Sennosides [Senna] 1 tab PO DAILY 02/26/22 03/02/22 Previous Rx's Medication Instructions Recorded Sulfamethox-Tmp 800-160Mg [Bactrim 1 tab PO Q12HR 5 Days #10 tab 06/05/22 DS 800-160 mg] Nitrofurantoin Monohyd/M-Cryst 100 mg PO Q12HR #14 cap 06/29/22 [Macrobid] cefUROXime axetiL [Ceftin] 500 mg PO BID 10 Days #20 tab 08/04/22 cefUROXime axetiL [Ceftin] 500 mg PO BID 10 Days #20 tab 09/10/22 Cephalexin [Keflex] 500 mg PO Q6HR #28 cap 10/04/22 Cephalexin [Keflex] 500 mg PO QID #28 cap 11/11/22 Cephalexin [Keflex] 500 mg PO QID 7 Days #28 cap 12/11/22 Sulfamethox-Tmp 800-160Mg [Bactrim 1 each PO Q12HR #14 tab 01/12/23 Ds] Amoxic-Pot Clav 875-125Mg 1 tab PO Q12HR 10 Days #20 tab 01/16/23 [Augmentin 875-125] cefUROXime axetiL [Ceftin] 500 mg PO BID 10 Days #20 tab 02/01/23 Ciprofloxacin HCl [Cipro] 500 mg PO Q12HR #20 tablet 03/08/23 Allergies Allergy/AdvReac Type Severity Reaction Status Date / Time No Known Allergies Allergy Verified 03/10/23 05:54 Review of Systems ROS Statement: Those systems with pertinent positive or pertinent negative responses have been documented in the HPI. ROS Other: All systems not noted in ROS Statement are negative. Past Medical History Past Medical History: Hyperlipidemia, Prostate Disorder Additional Past Medical History / Comment(s): covid fall 2020, PATIENT IS ABLE TO SIGN HIS OWN CONSENT. chronic mohan History of Any Multi-Drug Resistant Organisms: None Reported Additional Past Surgical History / Comment(s): KIDNEY STONES. Bilateral foot surgery Past Psychological History: No Psychological Hx Reported Smoking Status: Former smoker Past Alcohol Use History: None Reported Past Drug Use History: None Reported - Past Family History Mother Family Medical History: Unable to Obtain General Exam Limitations: language barrier (Hard of hearing) General appearance: alert, in no apparent distress Head exam: Present: atraumatic, normocephalic Eye exam: Present: normal appearance Respiratory exam: Present: normal lung sounds bilaterally Cardiovascular Exam: Present: regular rate, normal rhythm GI/Abdominal exam: Present: soft (Suprapubic tenderness to palpation. Urine- soaked shirt.) exam: Present: other (Catheter in place. No surrounding warmth, erythema, edema, or tenderness to palpation.) Extremities exam: Present: other (Bag in the right lower extremity with yellow/clear urine no gross blood.) Neurological exam: Present: alert, oriented X3 Skin exam: Present: warm, dry Course Vital Signs 03/10/23 05:44 Temperature 97.6 F Pulse Rate 76 Respiratory 16 Rate Blood Pressure 145/86 O2 Sat by Pulse 99 Oximetry Medical Decision Making - Medical Decision Making Was pt. sent in by a medical professional or institution (SIMON Lenz, [facility], urgent care, hospital, or long term...) When possible be specific @ -[No] Did you speak to anyone other than the patient for history (EMS, parent, family, police, friend...)? What history was obtained from this source @ -[No] Did you review nursing and triage notes (agree or disagree)? Why? @ -[I reviewed and agree with nursing and triage notes] Were old charts reviewed (outside hosp., previous admission, EMS record, old EKG, old radiological studies, urgent care reports/EKG's, long term records)? Report findings @ -Prior visit on 03/08/23 reviewed showing replacement of catheter. Urine culture sent however still pending. Differential Diagnosis (chest pain, altered mental status, abdominal pain women, abdominal pain men, vaginal bleeding, weakness, fever, dyspnea, syncope, headache, dizziness, GI bleed, back pain, seizure, CVA, palpatations, mental health, musculoskeletal)? @ -Differential Abdominal Pain Men: Appendicitis, cholecystitis, diverticulosis, ischemic bowel, pancreatitis, hepatitis, UTI, sepsis, gastroenteritis, AAA, incarcerated hernia, bowel ob struction, constipation, inflammatory bowel, hepatitis, peptic ulcer disease, splenic infarction, perforated viscus, testicular torsion, this is not meant to be an all-inclusive list EKG interpreted by me (3pts min.). @ -[As above] X-rays interpreted by me (1pt min.). @ -[None done] CT interpreted by me (1pt min.). @ -[None done] U/S interpreted by me (1pt. min.). @ -[None done] What testing was considered but not performed or refused? (CT, X-rays, U/S, labs)? Why? @ -[None] What meds were considered but not given or refused? Why? @ -[None] Did you discuss the management of the patient with other professionals (professionals i.e. SIMON Lenz, [facility] HAND, lab, RT, psych nurse, social media marketing specialist, mechanical engineering coop, teacher, pharmaceutical officer, telephonic case manager)? Give summary @ -[No] Was smoking cessation discussed for >3mins.? @ -[No] Was critical care preformed (if so, how long)? @ -[No] Were there social determinants of health that impacted care today? How? (Homelessness, low income, unemployed, alcoholism, drug addiction, transportation, low edu. Level, literacy, decrease access to med. care, senior living, rehab)? @ -[No] Was there de-escalation of care discussed even if they declined (Discuss DNR or withdrawal of care, Hospice)? DNR status @ -[No] What co-morbidities impacted this encounter? (DM, HTN, Smoking, COPD, CAD, Cancer, CVA, ARF, Chemo, Hep., AIDS, mental health diagnosis, sleep apnea, morbid obesity)? @ -Urinary retention Was patient admitted / discharged? Hospital course, mention meds given and route, prescriptions, significant lab abnormalities, going to OR and other pertinent info. @ -Discharged. Patient had successful replacement of urinary catheter with good drainage. UA consistent with prior UA, no worsening. Provided Ceftriaxone 1000mg IM. Additional urine culture obtained. Discharged in stable condition. Vital signs stable at discharge. Undiagnosed new problem with uncertain prognosis? @ -[No] Drug Therapy requiring intensive monitoring for toxicity (Heparin, Nitro, Insulin, Cardizem)? @ -[No] Were any procedures done? @ -[No] Diagnosis/symptom? @ -Catheter leak Acute, or Chronic, or Acute on Chronic? @ -Acute Uncomplicated (without systemic symptoms) or Complicated (systemic symptoms)? @ -Uncomplicated Side effects of treatment? @ -[No] Exacerbation, Progression, or Severe Exacerbation? @ -[No] Poses a threat to life or bodily function? How? (Chest pain, [place], [place], pneumonia, PE, COPD, DKA, ARF, appy, cholecystitis, CVA, Diverticulitis, Homicidal, Suicidal, threat to staff... and all critical care pts) @ -[No] - Lab Data Lab Results 03/10/23 Range/Units 06:33 Urine Color Yellow Urine Appearance Cloudy (Clear) Urine pH 6.5 (5.0-8.0) Ur Specific [place] 1.021 (1.001-1.035) Urine Protein 3+ H (Negative) Urine Glucose (UA) Negative (Negative) Urine Ketones 1+ H (Negative) Urine Blood Large H (Negative) Urine Nitrite Negative (Negative) Urine Bilirubin Negative (Negative) Urine Urobilinogen <2.0 (<2.0) mg/dL Ur Leukocyte Esterase Large H (Negative) Urine RBC >182 H (0-5) /hpf Urine WBC >182 H (0-5) /hpf Urine Bacteria Rare H (None) /hpf Hyaline Casts 1 (0-2) /lpf Urine Mucus Occasional H (None) /hpf Disposition Clinical Impression: Catheter (urine) change required Disposition: HOME SELF-CARE Additional Instructions: Please return to the Emergency Department if symptoms worsen or any other concerns. Follow up with PCP on urine culture. Is patient prescribed a controlled substance at d/c from ED?: No Referrals: None,Stated [Primary Care Provider] - 1-2 days Time of Disposition: 07:15
[2023-03-10 06:59] LABS: Appearance,Urine Cloudy (Clear); Bacteria,Urine Rare /hpf; Bilirubin,Urine Negative (Negative); Blood,Urine Large (Negative); Color,Urine Yellow; Glucose,Urine (UA) Negative (Negative); Hyaline Casts,Urine 1 /lpf (0-2); Ketones,Urine 1+ (Negative); Leukocyte Esterase,Urine Large (Negative); Mucus,Urine Occasional /hpf; Nitrite,Urine Negative (Negative); PH, Urine 6.5 (5.0-8.0); Protein,Urine 3+ (Negative); RBC,Urine >182 /hpf (0-5); Specific Gravity,Urine 1.021 (1.001-1.035); Urobilinogen,Urine <2.0 mg/dL (<2.0); WBC,Urine >182 /hpf (0-5)
[2023-03-10] MEDS ORDERED: cefTRIAXone 1,000 MG VIAL (IM USE) IM STA (07:23)
[2023-03-10 11:43] VITALS: BP 131/73; RESP 18; TEMP 98.1
== END 2023-03-10 10:30 | disposition home or self-care (01) ==
LOC: EC 05:44
DX: Z46.6 Encounter for fitting and adjustment of urinary device (principal); E78.5 Hyperlipidemia, unspecified; Z86.16 Personal history of COVID-19; Z87.891 Personal history of nicotine dependence; Z79.82 Long term (current) use of aspirin; Z79.899 Other long term (current) drug therapy
CPT/HCPCS: 81001; 87086; 99284; 51702; 96372; J0696

== ENCOUNTER 2023-03-27 19:10 | Emergency (ER) | payer MEDICARE, BC ==
[2023-03-27 19:45] VITALS: BP 176/100; PULSE 93; RESP 18; TEMP 98
[2023-03-27] MEDS ORDERED: Acetaminophen-Codeine 300-30mg TAB PO STA (21:55)
--- NOTE | 2023-03-27 22:13 | ED ---
Recheck HPI - General Chief Complaint: Recheck/Abnormal Lab/Rx Stated Complaint: catheter issue Time Seen by Provider: 03/27/23 21:05 Source: patient Mode of arrival: EMS Limitations: no limitations - History of Present Illness Initial Comments: 82-year-old male presenting with chief complaint of pain in the urethra. Patient has a Mohan catheter in place, states he was recently replaced by his home nurse. States the pain started today. There is no redness or swelling. Catheter is not leaking. No fevers or chills. No nausea or vomiting. No suprapubic pain. - Related Data Home Medications Medication Instructions Recorded Confirmed Aspirin EC [Ecotrin] 325 mg PO DAILY 10/15/14 03/02/22 Lovastatin [Mevacor] 40 mg PO HS 10/15/14 03/02/22 Cholecalciferol [Vitamin D3 (25 25 mcg PO DAILY 08/04/21 02/26/22 Mcg = 1000 Iu)] Divalproex ER [Depakote ER] 500 mg PO HS 08/04/21 03/02/22 Donepezil HCl [Aricept] 10 mg PO HS 08/04/21 03/02/22 Magnesium Hydroxide [Milk of 1 dose PO DIRECTED PRN 02/26/22 02/26/22 Magnesia] Multivitamins, Thera [Multivitamin 1 tab PO DAILY 02/26/22 03/02/22 (formulary)] Sennosides [Senna] 1 tab PO DAILY 02/26/22 03/02/22 Previous Rx's Medication Instructions Recorded Sulfamethox-Tmp 800-160Mg [Bactrim 1 tab PO Q12HR 5 Days #10 tab 06/05/22 DS 800-160 mg] Nitrofurantoin Monohyd/M-Cryst 100 mg PO Q12HR #14 cap 06/29/22 [Macrobid] cefUROXime axetiL [Ceftin] 500 mg PO BID 10 Days #20 tab 08/04/22 cefUROXime axetiL [Ceftin] 500 mg PO BID 10 Days #20 tab 09/10/22 Cephalexin [Keflex] 500 mg PO Q6HR #28 cap 10/04/22 Cephalexin [Keflex] 500 mg PO QID #28 cap 11/11/22 Cephalexin [Keflex] 500 mg PO QID 7 Days #28 cap 12/11/22 Sulfamethox-Tmp 800-160Mg [Bactrim 1 each PO Q12HR #14 tab 01/12/23 Ds] Amoxic-Pot Clav 875-125Mg 1 tab PO Q12HR 10 Days #20 tab 01/16/23 [Augmentin 875-125] cefUROXime axetiL [Ceftin] 500 mg PO BID 10 Days #20 tab 02/01/23 Ciprofloxacin HCl [Cipro] 500 mg PO Q12HR #20 tablet 03/08/23 Sulfamethox-Tmp 800-160Mg [Bactrim 1 tab PO Q12HR 7 Days #14 tab 03/27/23 DS 800-160 mg] Allergies Allergy/AdvReac Type Severity Reaction Status Date / Time No Known Allergies Allergy Verified 03/27/23 19:45 Review of Systems ROS Statement: Those systems with pertinent positive or pertinent negative responses have been documented in the HPI. ROS Other: All systems not noted in ROS Statement are negative. Past Medical History Past Medical History: Hyperlipidemia, Prostate Disorder Additional Past Medical History / Comment(s): covid fall 2020, PATIENT IS ABLE TO SIGN HIS OWN CONSENT. chronic mohan History of Any Multi-Drug Resistant Organisms: None Reported Additional Past Surgical History / Comment(s): KIDNEY STONES. Bilateral foot surgery Past Psychological History: No Psychological Hx Reported Smoking Status: Former smoker Past Alcohol Use History: None Reported Past Drug Use History: None Reported - Past Family History Mother Family Medical History: Unable to Obtain General Exam Limitations: no limitations General appearance: alert, in no apparent distress Head exam: Present: atraumatic, normocephalic, normal inspection Eye exam: Present: normal appearance, EOMI. Absent: scleral icterus, periorbital swelling Neck exam: Present: normal inspection, full ROM exam: Present: normal inspection. Absent: urethral discharge Neurological exam: Present: alert, oriented X3, CN II-XII intact Psychiatric exam: Present: normal affect, normal mood Skin exam: Present: warm, dry, intact, normal color. Absent: rash Course Vital Signs 03/27/23 19:40 Temperature 98.0 F Pulse Rate 93 Respiratory 18 Rate Blood Pressure 176/100 O2 Sat by Pulse 99 Oximetry Medical Decision Making - Medical Decision Making Was pt. sent in by a medical professional or institution (, PA, BACKEND JAVA DEVELOPER, urgent care, hospital, or [facility]...) When possible be specific @ -No Did you speak to anyone other than the patient for history (EMS, parent, family, police, friend...)? What history was obtained from this source @ -No Did you review nursing and triage notes (agree or disagree)? Why? @ -I reviewed and agree with nursing and triage notes Were old charts reviewed (outside hosp., previous admission, EMS record, old EKG, old radiological studies, urgent care reports/EKG's, [facility] records)? Report findings @ -No old charts were reviewed Differential Diagnosis (chest pain, altered mental status, abdominal pain women, abdominal pain men, vaginal bleeding, weakness, fever, dyspnea, syncope, headache, dizziness, GI bleed, back pain, seizure, CVA, palpatations, mental health, musculoskeletal)? @ -not applicable EKG interpreted by me (3pts min.). @ -As above X-rays interpreted by me (1pt min.). @ -None done CT interpreted by me (1pt min.). @ -None done U/S interpreted by me (1pt. min.). @ -None done What testing was considered but not performed or refused? (CT, X-rays, U/S, labs)? Why? @ -None What meds were considered but not given or refused? Why? @ -None Did you discuss the management of the patient with other professionals (professionals i.e. , PA, BACKEND JAVA DEVELOPER, lab, RT, psych nurse, social science teacher, agriculture consultant, teacher, chief talent officer, case aide)? Give summary @ -No Was smoking cessation discussed for >3mins.? @ -No Was critical care preformed (if so, how long)? @ -No Were there social determinants of health that impacted care today? How? (Homelessness, low income, unemployed, alcoholism, drug addiction, transportation, low edu. Level, literacy, decrease access to med. care, [facility], rehab)? @ -No Was there de-escalation of care discussed even if they declined (Discuss DNR or withdrawal of care, Hospice)? DNR status @ -No What co-morbidities impacted this encounter? (DM, HTN, Smoking, COPD, CAD, Cancer, CVA, ARF, Chemo, Hep., AIDS, mental health diagnosis, sleep apnea, morbid obesity)? @ -None Was patient admitted / discharged? Hospital course, mention meds given and route, prescriptions, significant lab abnormalities, going to OR and other pertinent info. @ -82-year-old male presenting with chief complaint of urethral pain with fully catheter in place. On physical examination there is no redness, swelling, or discharge. Catheter is replaced and patient reports resolution of symptoms. Urine shows signs of UTI, patient is started on Bactrim. Follow-up with PCP. Report back to ER with any new or worsening symptoms. Discussed return parameters and answered all questions. Patient conveyed verbal understanding and agreed to the plan. I discussed this case in detail with my attending Dr. Wilkins Undiagnosed new problem with uncertain prognosis? @ -No Drug Therapy requiring intensive monitoring for toxicity (Heparin, Nitro, Insulin, Cardizem)? @ -No Were any procedures done? @ -No Diagnosis/symptom? @ -UTI and Mohan catheter in place Acute, or Chronic, or Acute on Chronic? @ -Acute Uncomplicated (without systemic symptoms) or Complicated (systemic symptoms)? @ -Uncomplicated Side effects of treatment? @ -No Exacerbation, Progression, or Severe Exacerbation? @ -No Poses a threat to life or bodily function? How? (Chest pain, [place], [place], pneumonia, PE, COPD, DKA, ARF, appy, cholecystitis, CVA, Diverticulitis, Homicidal, Suicidal, threat to staff... and all critical care pts) @ -No - Lab Data Lab Results 03/27/23 Range/Units 22:22 Urine Color Yellow Urine Appearance Cloudy (Clear) Urine pH 6.0 (5.0-8.0) Ur Specific [place] 1.020 (1.001-1.035) Urine Protein 3+ H (Negative) Urine Glucose (UA) Negative (Negative) Urine Ketones Negative (Negative) Urine Blood Moderate H (Negative) Urine Nitrite Positive (Negative) Urine Bilirubin Negative (Negative) Urine Urobilinogen <2.0 (<2.0) mg/dL Ur Leukocyte Esterase Large H (Negative) Urine RBC 54 H (0-5) /hpf Urine WBC >182 H (0-5) /hpf Ur Squamous Epith Cells 1 (0-4) /hpf Urine Bacteria Occasional H (None) /hpf Urine Mucus Rare H (None) /hpf Disposition Clinical Impression: Mohan catheter in place, UTI (urinary tract infection) Disposition: HOME SELF-CARE Condition: Good Instructions (If sedation given, give patient instructions): Mohan Catheter Placement and Care (ED) Additional Instructions: Follow up with urology. Report back to ER with any new or worsening symptoms. Prescriptions: Sulfamethox-Tmp 800-160Mg [Bactrim DS 800-160 mg] 1 tab PO Q12HR 7 Days #14 tab Is patient prescribed a controlled substance at d/c from ED?: No Referrals: [facility],Clinic [Primary Care Provider] - 1-2 days
[2023-03-27] MEDS ORDERED: LIDOCAINE 2% URO-JET JELLY 5 ML KIT URETHRAL ONE (22:19)
[2023-03-27] MEDS ORDERED: ACET/COD 300 MG/30 MG STARTER PACK 6 TAB BTL PO STA (22:21)
[2023-03-27 22:48] LABS: Appearance,Urine Cloudy (Clear); Bacteria,Urine Occasional /hpf; Bilirubin,Urine Negative (Negative); Blood,Urine Moderate (Negative); Color,Urine Yellow; Glucose,Urine (UA) Negative (Negative); Ketones,Urine Negative (Negative); Leukocyte Esterase,Urine Large (Negative); Mucus,Urine Rare /hpf; Nitrite,Urine Positive (Negative); Protein,Urine 3+ (Negative); RBC,Urine 54 /hpf (0-5); Squamous Epithelial Cell,Urine 1 /hpf (0-4); Urobilinogen,Urine <2.0 mg/dL (<2.0); WBC,Urine >182 /hpf (0-5)
== END 2023-03-27 23:43 | disposition home or self-care (01) ==
LOC: EC 19:10
DX: Z46.6 Encounter for fitting and adjustment of urinary device (principal); N39.0 Urinary tract infection, site not specified; E78.5 Hyperlipidemia, unspecified; Z87.891 Personal history of nicotine dependence; Z79.899 Other long term (current) drug therapy; Z79.82 Long term (current) use of aspirin; Z86.16 Personal history of COVID-19
CPT/HCPCS: 51702; 81001; 87086; 99284

== ENCOUNTER 2023-06-02 21:41 | Emergency (ER) | payer MEDICARE, BC ==
[2023-06-02 21:56] VITALS: BP 160/82; PULSE 111; RESP 22; TEMP 98.7
--- NOTE | 2023-06-02 23:01 | ED ---
General Adult HPI - General Chief complaint: Urogenital Stated complaint: Catheter Malfunction Time Seen by Provider: 06/02/23 22:17 Source: patient Mode of arrival: ambulatory Limitations: no limitations - History of Present Illness Initial comments: Dictation was produced using [employer] dictation software. please excuse any grammatical, word or spelling errors. Chief Complaint: 82-year-old male presents with clogged Mohan History of Present Illness: Is a 82-year-old male who has past medical history of atonic bladder. He is chronically Mohan dependent. Patient has history of bladder stones. States that since 7:30 his foot There is not been draining. Patient has no other complaints. Mohan catheter last changed last week The ROS documented in this emergency department record has been reviewed and confirmed by me. Those systems with pertinent positive or negative responses have been documented in the HPI. All other systems are other negative and/or noncontributory. - Related Data Home Medications Medication Instructions Recorded Confirmed Aspirin EC [Ecotrin] 325 mg PO DAILY 10/15/14 03/02/22 Lovastatin [Mevacor] 40 mg PO HS 10/15/14 03/02/22 Cholecalciferol [Vitamin D3 (25 25 mcg PO DAILY 08/04/21 02/26/22 Mcg = 1000 Iu)] Divalproex ER [Depakote ER] 500 mg PO HS 08/04/21 03/02/22 Donepezil HCl [Aricept] 10 mg PO HS 08/04/21 03/02/22 Magnesium Hydroxide [Milk of 1 dose PO DIRECTED PRN 02/26/22 02/26/22 Magnesia] Multivitamins, Thera [Multivitamin 1 tab PO DAILY 02/26/22 03/02/22 (formulary)] Sennosides [Senna] 1 tab PO DAILY 02/26/22 03/02/22 Previous Rx's Medication Instructions Recorded Sulfamethox-Tmp 800-160Mg [Bactrim 1 tab PO Q12HR 5 Days #10 tab 06/05/22 DS 800-160 mg] Nitrofurantoin Monohyd/M-Cryst 100 mg PO Q12HR #14 cap 06/29/22 [Macrobid] cefUROXime axetiL [Ceftin] 500 mg PO BID 10 Days #20 tab 08/04/22 cefUROXime axetiL [Ceftin] 500 mg PO BID 10 Days #20 tab 09/10/22 Cephalexin [Keflex] 500 mg PO Q6HR #28 cap 10/04/22 Cephalexin [Keflex] 500 mg PO QID #28 cap 11/11/22 Cephalexin [Keflex] 500 mg PO QID 7 Days #28 cap 12/11/22 Sulfamethox-Tmp 800-160Mg [Bactrim 1 each PO Q12HR #14 tab 01/12/23 Ds] Amoxic-Pot Clav 875-125Mg 1 tab PO Q12HR 10 Days #20 tab 01/16/23 [Augmentin 875-125] cefUROXime axetiL [Ceftin] 500 mg PO BID 10 Days #20 tab 02/01/23 Ciprofloxacin HCl [Cipro] 500 mg PO Q12HR #20 tablet 03/08/23 Sulfamethox-Tmp 800-160Mg [Bactrim 1 tab PO Q12HR 7 Days #14 tab 03/27/23 DS 800-160 mg] Allergies Allergy/AdvReac Type Severity Reaction Status Date / Time No Known Allergies Allergy Verified 06/02/23 21:56 Review of Systems ROS Statement: Those systems with pertinent positive or pertinent negative responses have been documented in the HPI. ROS Other: All systems not noted in ROS Statement are negative. Past Medical History Past Medical History: Hyperlipidemia, Prostate Disorder Additional Past Medical History / Comment(s): covid fall 2020, PATIENT IS ABLE TO SIGN HIS OWN CONSENT. 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 Bilateral foot surgery Past Psychological History: No Psychological Hx Reported Smoking Status: Former smoker Past Alcohol Use History: None Reported Past Drug Use History: None Reported - Past Family History Mother Family Medical History: Unable to Obtain General Exam - General Exam Comments Initial Comments: PHYSICAL EXAM: General Impression: Alert and oriented x3, not in acute distress HEENT: Normocephalic atraumatic, extra-ocular movements intact, pupils equal and reactive to light bilaterally, mucous membranes moist. Cardiovascular: Heart regular rate and rhythm Chest: Able to complete full sentences, no retractions, no tachypnea Abdomen: abdomen soft, non-tender, non-distended, no organomegaly Musculoskeletal: Pulses present and equal in all extremities, no peripheral edema Motor: no focal deficits noted Neurological: CN II-XII grossly intact, no focal motor or sensory deficits noted Skin: Intact with no visualized rashes Psych: Normal affect and mood Limitations: no limitations Course Vital Signs 06/02/23 21:50 Temperature 98.7 F Pulse Rate 111 H Respiratory 22 Rate Blood Pressure 160/82 O2 Sat by Pulse 99 Oximetry Medical Decision Making - Medical Decision Making Was pt. sent in by a medical professional or institution (SIMON Lenz, EXHIBIT ELECTRICIAN, urgent care, hospital, or prison...) When possible be specific @ -No Did you speak to anyone other than the patient for history (EMS, parent, family, police, friend...)? What history was obtained from this source @ -No Did you review nursing and triage notes (agree or disagree)? Why? @ -I reviewed and agree with nursing and triage notes Were old charts reviewed (outside hosp., previous admission, EMS record, old EKG, old radiological studies, urgent care reports/EKG's, prison records)? Report findings @ -No old charts were reviewed Differential Diagnosis (chest pain, altered mental status, abdominal pain women, abdominal pain men, vaginal bleeding, musculoskeletal, weakness, fever, dyspnea, syncope, headache, dizziness, GI bleed, back pain, seizure, CVA, palpatations, mental health)? @ -not applicable EKG interpreted by me (3pts min.). @ -None done X-rays interpreted by me (1pt min.). @ -None done CT interpreted by me (1pt min.). @ -None done U/S interpreted by me (1pt. min.). @ -None done What testing was considered but not performed or refused? (CT, X-rays, U/S, labs)? Why? @ -None What meds were considered but not given or refused? Why? @ -None Did you discuss the management of the patient with other professionals (professionals i.e. SIMON Lenz, EXHIBIT ELECTRICIAN, lab, RT, psych nurse, social work associate, dial polisher, teacher, u.s. revenue officer, registered nurse hh case manager)? Give summary @ -No Was smoking cessation discussed for >3mins.? @ -No Was critical care preformed (if so, how long)? @ -No Were there social determinants of health that impacted care today? How? (Homelessness, low income, unemployed, alcoholism, drug addiction, transportation, low edu. Level, literacy, decrease access to med. care, senior living, rehab)? @ -No Was there de-escalation of care discussed even if they declined (Discuss DNR or withdrawal of care, Hospice)? DNR status @ -No What co-morbidities impacted this encounter? (DM, HTN, Smoking, COPD, CAD, Cancer, CVA, ARF, Chemo, Hep., AIDS, mental health diagnosis, sleep apnea, morbid obesity)? @ -None Was patient admitted / discharged? Hospital course, mention meds given and route, prescriptions, significant lab abnormalities, going to OR and other pertinent info. @ -82 y Old male who is fully dependent secondary to atonic bladder presents to the ER for Mohan catheter malfunction. Full catheters changed at the bedside. Mohan catheter not draining. Patient discharged. Undiagnosed new problem with uncertain prognosis? @ -No Drug Therapy requiring intensive monitoring for toxicity (Heparin, Nitro, Insulin, Cardizem)? @ -No Were any procedures done? @ -No Diagnosis/symptom? Acute, or Chronic, or Acute on Chronic? Uncomplicated (without systemic symptoms) or Complicated (systemic symptoms)? @ -Mohan catheter malfunction Side effects of treatment? @ -No Exacerbation, Progression, or Severe Exacerbation? @ -No Poses a threat to life or bodily function? How? (Chest pain, [place], [place], pneumonia, PE, COPD, DKA, ARF, appy, cholecystitis, CVA, Diverticulitis, Homicidal, Suicidal, threat to staff... and all critical care pts) @ -yes Disposition Clinical Impression: Malfunction of Mohan catheter Disposition: HOME SELF-CARE Condition: Good Instructions (If sedation given, give patient instructions): Mohan Catheter Placement and Care (ED) Is patient prescribed a controlled substance at d/c from ED?: No Referrals: [facility],Clinic [Primary Care Provider] - 1-2 days Time of Disposition: 23:03
== END 2023-06-03 00:03 | disposition home or self-care (01) ==
LOC: EC 21:41
DX: T83.098A Other mechanical complication of other urinary catheter, initial encounter (principal); E78.5 Hyperlipidemia, unspecified; Z79.899 Other long term (current) drug therapy; Z79.82 Long term (current) use of aspirin; Z87.891 Personal history of nicotine dependence; Z86.16 Personal history of COVID-19
CPT/HCPCS: 51702; 99283

== ENCOUNTER 2023-08-22 05:33 | Emergency (ER) | payer MEDICARE, BC ==
[2023-08-22 06:04] VITALS: RESP 17; TEMP 97.8
--- NOTE | 2023-08-22 06:27 | ED ---
General Adult HPI - General Chief complaint: Abdominal Pain Stated complaint: Catheter malfunction Time Seen by Provider: 08/22/23 05:35 Source: patient, EMS, RN notes reviewed, old records reviewed Mode of arrival: EMS - History of Present Illness Initial comments: 82 -year-old male presenting with occluded Mohan catheter, lower abdominal pain. Patient has chronic indwelling catheter. He's had no fever. No vomiting. Symptoms began a proximally 6 hours prior to arrival. He states that he has had urine leaking around the catheter. No bleeding. - Related Data Home Medications Medication Instructions Recorded Confirmed Aspirin EC [Ecotrin] 325 mg PO DAILY 10/15/14 03/02/22 Lovastatin [Mevacor] 40 mg PO HS 10/15/14 03/02/22 Cholecalciferol [Vitamin D3 (25 25 mcg PO DAILY 08/04/21 02/26/22 Mcg = 1000 Iu)] Divalproex ER [Depakote ER] 500 mg PO HS 08/04/21 03/02/22 Donepezil HCl [Aricept] 10 mg PO HS 08/04/21 03/02/22 Magnesium Hydroxide [Milk of 1 dose PO DIRECTED PRN 02/26/22 02/26/22 Magnesia] Multivitamins, Thera [Multivitamin 1 tab PO DAILY 02/26/22 03/02/22 (formulary)] Sennosides [Senna] 1 tab PO DAILY 02/26/22 03/02/22 Previous Rx's Medication Instructions Recorded Sulfamethox-Tmp 800-160Mg [Bactrim 1 tab PO Q12HR 5 Days #10 tab 06/05/22 DS 800-160 mg] Nitrofurantoin Monohyd/M-Cryst 100 mg PO Q12HR #14 cap 06/29/22 [Macrobid] cefUROXime axetiL [Ceftin] 500 mg PO BID 10 Days #20 tab 08/04/22 cefUROXime axetiL [Ceftin] 500 mg PO BID 10 Days #20 tab 09/10/22 Cephalexin [Keflex] 500 mg PO Q6HR #28 cap 10/04/22 Cephalexin [Keflex] 500 mg PO QID #28 cap 11/11/22 Cephalexin [Keflex] 500 mg PO QID 7 Days #28 cap 12/11/22 Sulfamethox-Tmp 800-160Mg [Bactrim 1 each PO Q12HR #14 tab 01/12/23 Ds] Amoxic-Pot Clav 875-125Mg 1 tab PO Q12HR 10 Days #20 tab 01/16/23 [Augmentin 875-125] cefUROXime axetiL [Ceftin] 500 mg PO BID 10 Days #20 tab 02/01/23 Ciprofloxacin HCl [Cipro] 500 mg PO Q12HR #20 tablet 03/08/23 Sulfamethox-Tmp 800-160Mg [Bactrim 1 tab PO Q12HR 7 Days #14 tab 03/27/23 DS 800-160 mg] Sulfamethox-Tmp 800-160Mg [Bactrim 1 tab PO Q12HR 7 Days #14 tab 08/22/23 DS 800-160 mg] Allergies Allergy/AdvReac Type Severity Reaction Status Date / Time No Known Allergies Allergy Verified 08/22/23 05:50 Review of Systems ROS Statement: Those systems with pertinent positive or pertinent negative responses have been documented in the HPI. ROS Other: All systems not noted in ROS Statement are negative. Past Medical History Past Medical History: Hyperlipidemia, Prostate Disorder Additional Past Medical History / Comment(s): covid fall 2020, PATIENT IS ABLE TO SIGN HIS OWN CONSENT. 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 Bilateral foot surgery Past Psychological History: No Psychological Hx Reported Smoking Status: Former smoker Past Alcohol Use History: None Reported Past Drug Use History: None Reported - Past Family History Mother Family Medical History: Unable to Obtain General Exam General appearance: alert, in no apparent distress Head exam: Present: atraumatic, normocephalic Eye exam: Present: normal appearance, PERRL ENT exam: Present: normal exam Neck exam: Present: normal inspection. Absent: tenderness, meningismus Respiratory exam: Present: normal lung sounds bilaterally. Absent: respiratory distress, wheezes Cardiovascular Exam: Present: regular rate, normal rhythm GI/Abdominal exam: Present: soft. Absent: distended, tenderness, guarding, rebound Extremities exam: Present: normal inspection Course Vital Signs 08/22/23 05:45 Temperature 97.8 F Pulse Rate 70 Respiratory 17 Rate Blood Pressure 143/93 O2 Sat by Pulse 100 Oximetry Medical Decision Making - Medical Decision Making Was pt. sent in by a medical professional or institution (SIMON Lenz, GEOMETRY TEACHER, urgent care, hospital, or longterm...) When possible be specific @ -No Did you speak to anyone other than the patient for history (EMS, parent, family, police, friend...)? What history was obtained from this source @ -No Did you review nursing and triage notes (agree or disagree)? Why? @ -I reviewed and agree with nursing and triage notes Were old charts reviewed (outside hosp., previous admission, EMS record, old EKG, old radiological studies, urgent care reports/EKG's, longterm records)? Report findings @ -No old charts were reviewed Differential Diagnosis (chest pain, altered mental status, abdominal pain women, abdominal pain men, vaginal bleeding, weakness, fever, dyspnea, syncope, headache, dizziness, GI bleed, back pain, seizure, CVA, palpatations, mental health, musculoskeletal)? @Urinary tract infection, occluded urinary catheter EKG interpreted by me (3pts min.). @ -As above X-rays interpreted by me (1pt min.). @ -None done CT interpreted by me (1pt min.). @ -None done U/S interpreted by me (1pt. min.). @ -None done What testing was considered but not performed or refused? (CT, X-rays, U/S, labs)? Why? @ -None What meds were considered but not given or refused? Why? @ -None Did you discuss the management of the patient with other professionals (professionals i.e. , SIMON, GEOMETRY TEACHER, lab, RT, psych nurse, psychotherapist social worker, maintenance engineer oil field, teacher, procurement officer, case work aide)? Give summary @ -No Was smoking cessation discussed for >3mins.? @ -No Was critical care preformed (if so, how long)? @ -No Were there social determinants of health that impacted care today? How? (Homelessness, low income, unemployed, alcoholism, drug addiction, transportation, low edu. Level, literacy, decrease access to med. care, penitentiary, rehab)? @ -No Was there de-escalation of care discussed even if they declined (Discuss DNR or withdrawal of care, Hospice)? DNR status @ -No What co-morbidities impacted this encounter? (DM, HTN, Smoking, COPD, CAD, Cancer, CVA, ARF, Chemo, Hep., AIDS, mental health diagnosis, sleep apnea, morbid obesity)? @ -None Was patient admitted / discharged? Hospital course, mention meds given and route, prescriptions, significant lab abnormalities, going to OR and other pertinent info. @ -[Patient with chronic indwelling Mohan catheter, occluded. Urine is purulent. Patient started on antibiotics awaiting culture results. Catheter exchanged in the emergency department. Symptoms completely resolved patient feeling better. Undiagnosed new problem with uncertain prognosis? @ -No Drug Therapy requiring intensive monitoring for toxicity (Heparin, Nitro, Insulin, Cardizem)? @ -No Were any procedures done? @ -No Diagnosis/symptom? @ -[Occluded Mohan catheter, UTI Acute, or Chronic, or Acute on Chronic? @ -[Acute on chronic Uncomplicated (without systemic symptoms) or Complicated (systemic symptoms)? @ -default Side effects of treatment? @ -No Exacerbation, Progression, or Severe Exacerbation? @ -No Poses a threat to life or bodily function? How? (Chest pain, [place], [place], pneumonia, PE, COPD, DKA, ARF, appy, cholecystitis, CVA, Diverticulitis, Homicidal, Suicidal, threat to staff... and all critical care pts) @ -No Disposition Clinical Impression: Retention of urine due to occlusion of Mohan catheter Disposition: HOME SELF-CARE Condition: Fair Instructions (If sedation given, give patient instructions): Mohan Catheter Placement and Care (ED) Prescriptions: Sulfamethox-Tmp 800-160Mg [Bactrim DS 800-160 mg] 1 tab PO Q12HR 7 Days #14 tab Is patient prescribed a controlled substance at d/c from ED?: No Referrals: [facility],Clinic [Primary Care Provider] - 1-2 days Time of Disposition: 06:32
[2023-08-22 06:42] LABS: Appearance,Urine Cloudy (Clear); Bilirubin,Urine Negative (Negative); Blood,Urine Moderate (Negative); Color,Urine Colorless; Glucose,Urine (UA) Negative (Negative); Ketones,Urine Trace (Negative); Leukocyte Esterase,Urine Large (Negative); Mucus,Urine Rare /hpf; Nitrite,Urine Negative (Negative); Protein,Urine Trace (Negative); RBC,Urine 76 /hpf (0-5); Specific Gravity,Urine 1.015 (1.001-1.035); Squamous Epithelial Cell,Urine 1 /hpf (0-4); Urobilinogen,Urine <2.0 mg/dL (<2.0); WBC,Urine >182 /hpf (0-5)
[2023-08-22 07:26] VITALS: BP 152/72; PULSE 69
== END 2023-08-22 09:40 | disposition home or self-care (01) ==
LOC: EC 05:33
DX: T83.098A Other mechanical complication of other urinary catheter, initial encounter (principal); B96.4 Proteus (mirabilis) (morganii) as the cause of diseases classified elsewhere; E78.5 Hyperlipidemia, unspecified; Z87.891 Personal history of nicotine dependence; Z86.16 Personal history of COVID-19; Z79.82 Long term (current) use of aspirin; Z79.899 Other long term (current) drug therapy
CPT/HCPCS: 51702; 81001; 87077; 87086; 87186; 99284

== ENCOUNTER 2023-09-12 21:55 | Emergency (ER) | payer MEDICARE, BC ==
--- NOTE | 2023-09-12 22:09 | ED ---
Recheck HPI - General Chief Complaint: Recheck/Abnormal Lab/Rx Stated Complaint: Catheter bag leaking Time Seen by Provider: 09/12/23 22:05 Source: patient, EMS, RN notes reviewed Mode of arrival: EMS Limitations: no limitations - History of Present Illness Initial Comments: Patient is an 82-year-old male presenting to the ER via EMS with a chief complai nt of a leaking catheter bag. Patient states he noticed that his catheter bag was leaking and was unable to find a source. He states EMS tried to tape it but it continued to leak. Patient has no other complaints. Patient denies any fevers or chills. - Related Data Home Medications Medication Instructions Recorded Confirmed Aspirin EC [Ecotrin] 325 mg PO DAILY 10/15/14 03/02/22 Lovastatin [Mevacor] 40 mg PO HS 10/15/14 03/02/22 Cholecalciferol [Vitamin D3 (25 25 mcg PO DAILY 08/04/21 02/26/22 Mcg = 1000 Iu)] Divalproex ER [Depakote ER] 500 mg PO HS 08/04/21 03/02/22 Donepezil HCl [Aricept] 10 mg PO HS 08/04/21 03/02/22 Magnesium Hydroxide [Milk of 1 dose PO DIRECTED PRN 02/26/22 02/26/22 Magnesia] Multivitamins, Thera [Multivitamin 1 tab PO DAILY 02/26/22 03/02/22 (formulary)] Sennosides [Senna] 1 tab PO DAILY 02/26/22 03/02/22 Previous Rx's Medication Instructions Recorded Sulfamethox-Tmp 800-160Mg [Bactrim 1 tab PO Q12HR 5 Days #10 tab 06/05/22 DS 800-160 mg] Nitrofurantoin Monohyd/M-Cryst 100 mg PO Q12HR #14 cap 06/29/22 [Macrobid] cefUROXime axetiL [Ceftin] 500 mg PO BID 10 Days #20 tab 08/04/22 cefUROXime axetiL [Ceftin] 500 mg PO BID 10 Days #20 tab 09/10/22 Cephalexin [Keflex] 500 mg PO Q6HR #28 cap 10/04/22 Cephalexin [Keflex] 500 mg PO QID #28 cap 11/11/22 Cephalexin [Keflex] 500 mg PO QID 7 Days #28 cap 12/11/22 Sulfamethox-Tmp 800-160Mg [Bactrim 1 each PO Q12HR #14 tab 01/12/23 Ds] Amoxic-Pot Clav 875-125Mg 1 tab PO Q12HR 10 Days #20 tab 01/16/23 [Augmentin 875-125] cefUROXime axetiL [Ceftin] 500 mg PO BID 10 Days #20 tab 02/01/23 Ciprofloxacin HCl [Cipro] 500 mg PO Q12HR #20 tablet 03/08/23 Sulfamethox-Tmp 800-160Mg [Bactrim 1 tab PO Q12HR 7 Days #14 tab 03/27/23 DS 800-160 mg] Sulfamethox-Tmp 800-160Mg [Bactrim 1 tab PO Q12HR 7 Days #14 tab 08/22/23 DS 800-160 mg] Allergies Allergy/AdvReac Type Severity Reaction Status Date / Time No Known Allergies Allergy Verified 09/12/23 23:13 Review of Systems ROS Statement: Those systems with pertinent positive or pertinent negative responses have been documented in the HPI. ROS Other: All systems not noted in ROS Statement are negative. Past Medical History Past Medical History: Hyperlipidemia, Prostate Disorder Additional Past Medical History / Comment(s): covid fall 2020, PATIENT IS ABLE TO SIGN HIS OWN CONSENT. 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 Bilateral foot surgery Past Psychological History: No Psychological Hx Reported Smoking Status: Former smoker Past Alcohol Use History: None Reported Past Drug Use History: None Reported - Past Family History Mother Family Medical History: Unable to Obtain General Exam Limitations: no limitations General appearance: alert, in no apparent distress Head exam: Present: atraumatic, normocephalic, normal inspection Eye exam: Present: normal appearance, PERRL, EOMI. Absent: scleral icterus, conjunctival injection, periorbital swelling Respiratory exam: Present: normal lung sounds bilaterally. Absent: respiratory distress, wheezes, rales, rhonchi, stridor Cardiovascular Exam: Present: regular rate, normal rhythm, normal heart sounds. Absent: systolic murmur, diastolic murmur, rubs, gallop, clicks Extremities exam: Present: normal inspection, full ROM, normal capillary refill. Absent: tenderness, pedal edema, joint swelling, calf tenderness Neurological exam: Present: alert, oriented X3, CN II-XII intact Psychiatric exam: Present: normal affect, normal mood Skin exam: Present: warm, dry, intact, normal color. Absent: rash Course Vital Signs 09/12/23 22:00 Temperature 97.8 F Pulse Rate 73 Respiratory 18 Rate Blood Pressure 152/92 O2 Sat by Pulse 98 Oximetry Medical Decision Making - Medical Decision Making Was pt. sent in by a medical professional or institution (, SIMON, FRONT LINE LEADER, urgent care, hospital, or [facility]...) When possible be specific @ -No Did you speak to anyone other than the patient for history (EMS, parent, family, police, friend...)? What history was obtained from this source @ -No Did you review nursing and triage notes (agree or disagree)? Why? @ -I reviewed and agree with nursing and triage notes Were old charts reviewed (outside hosp., previous admission, EMS record, old EKG, old radiological studies, urgent care reports/EKG's, [facility] records)? Report findings @ -No old charts were reviewed Differential Diagnosis (chest pain, altered mental status, abdominal pain women, abdominal pain men, vaginal bleeding, weakness, fever, dyspnea, syncope, headache, dizziness, GI bleed, back pain, seizure, CVA, palpatations, mental health, musculoskeletal)? @ -Urinary catheter leak, obstruction, this list is not all inclusive EKG interpreted by me (3pts min.). @ -None X-rays interpreted by me (1pt min.). @ -None done CT interpreted by me (1pt min.). @ -None done U/S interpreted by me (1pt. min.). @ -None done What testing was considered but not performed or refused? (CT, X-rays, U/S, labs)? Why? @ -None What meds were considered but not given or refused? Why? @ -None Did you discuss the management of the patient with other professionals ( professionals i.e. SIMON Lenz, FRONT LINE LEADER, lab, RT, psych nurse, geriatric social work professor, corn press operator, teacher, combatant diver officer, outsole caser)? Give summary @ -No Was smoking cessation discussed for >3mins.? @ -No Was critical care preformed (if so, how long)? @ -No Were there social determinants of health that impacted care today? How? (Homelessness, low income, unemployed, alcoholism, drug addiction, transportation, low edu. Level, literacy, decrease access to med. care, nursing home, rehab)? @ -No Was there de-escalation of care discussed even if they declined (Discuss DNR or withdrawal of care, Hospice)? DNR status @ -No What co-morbidities impacted this encounter? (DM, HTN, Smoking, COPD, CAD, Cancer, CVA, ARF, Chemo, Hep., AIDS, mental health diagnosis, sleep apnea, morbid obesity)? @ -None Was patient admitted / discharged? Hospital course, mention meds given and route, prescriptions, significant lab abnormalities, going to OR and other pertinent info. @ -Discharged Patient is an 82-year-old male presented ER with chief complaint of catheter bag leak. Upon examination, patient's vital signs are stable. Physical exam was unimpressive. Catheter bag was changed and is no longer leaking. Return parameters were discussed discuss with patient follow-up with PCP. Patient be discharged in stable condition with follow-up to primary care physician. Patient expressed understanding and agreement with care plan. Undiagnosed new problem with uncertain prognosis? @ -No Drug Therapy requiring intensive monitoring for toxicity (Heparin, Nitro, Insulin, Cardizem)? @ -No Were any procedures done? @ -No Diagnosis/symptom? @ -Catheter bag recheck Acute, or Chronic, or Acute on Chronic? @ -Acute Uncomplicated (without systemic symptoms) or Complicated (systemic symptoms)? @ -Uncomplicated Side effects of treatment? @ -No Exacerbation, Progression, or Severe Exacerbation? @ -No Poses a threat to life or bodily function? How? (Chest pain, [place], [place], pneumonia, PE, COPD, DKA, ARF, appy, cholecystitis, CVA, Diverticulitis, Homicidal, Suicidal, threat to staff... and all critical care pts) @ -No Disposition Clinical Impression: Urinary catheter (Mohan) change required Disposition: HOME SELF-CARE Condition: Stable Additional Instructions: Please return to the Emergency Department if symptoms worsen or any other concerns. Is patient prescribed a controlled substance at d/c from ED?: No Referrals: Rm Patel DO [Primary Care Provider] - 1-2 days Time of Disposition: 23:10
[2023-09-12 22:20] VITALS: TEMP 97.8
[2023-09-12 23:30] VITALS: BP 128/70; PULSE 67; RESP 16
== END 2023-09-13 00:18 | disposition home or self-care (01) ==
LOC: EC 21:55
DX: T83.018A Breakdown (mechanical) of other urinary catheter, initial encounter (principal); E78.5 Hyperlipidemia, unspecified; Z87.891 Personal history of nicotine dependence; Z79.82 Long term (current) use of aspirin; Z79.899 Other long term (current) drug therapy
CPT/HCPCS: 99283

== ENCOUNTER 2023-11-12 05:26 | Emergency (ER) | payer MEDICARE, BC ==
[2023-11-12 05:54] VITALS: BP 148/95; PULSE 76; RESP 20; TEMP 96.9
--- NOTE | 2023-11-12 06:02 | ED ---
Male Urogenital HPI - General Chief complaint: Urogenital Stated complaint: Catheter malfunction Time Seen by Provider: 11/12/23 05:30 Source: patient, EMS Mode of arrival: EMS Limitations: no limitations - History of Present Illness Initial comments: 82-year-old male presents emergency department reporting catheter issue. Patient is well-known to the emergency department. He does have a chronic indwelling Mohan. States that it stopped draining at some point last night. He awoke and was having significant pain and noticed that his bag did not contain much urine. He is reporting to significant suprapubic abdominal pain. He denies fevers. No other alleviating, precipitating or modifying factors - Related Data Home Medications Medication Instructions Recorded Confirmed Aspirin EC [Ecotrin] 325 mg PO DAILY 10/15/14 03/02/22 Lovastatin [Mevacor] 40 mg PO HS 10/15/14 03/02/22 Cholecalciferol [Vitamin D3 (25 25 mcg PO DAILY 08/04/21 02/26/22 Mcg = 1000 Iu)] Divalproex ER [Depakote ER] 500 mg PO HS 08/04/21 03/02/22 Donepezil HCl [Aricept] 10 mg PO HS 08/04/21 03/02/22 Magnesium Hydroxide [Milk of 1 dose PO DIRECTED PRN 02/26/22 02/26/22 Magnesia] Multivitamins, Thera [Multivitamin 1 tab PO DAILY 02/26/22 03/02/22 (formulary)] Sennosides [Senna] 1 tab PO DAILY 02/26/22 03/02/22 Previous Rx's Medication Instructions Recorded Sulfamethox-Tmp 800-160Mg [Bactrim 1 tab PO Q12HR 5 Days #10 tab 06/05/22 DS 800-160 mg] Nitrofurantoin Monohyd/M-Cryst 100 mg PO Q12HR #14 cap 06/29/22 [Macrobid] cefUROXime axetiL [Ceftin] 500 mg PO BID 10 Days #20 tab 08/04/22 cefUROXime axetiL [Ceftin] 500 mg PO BID 10 Days #20 tab 09/10/22 Cephalexin [Keflex] 500 mg PO Q6HR #28 cap 10/04/22 Cephalexin [Keflex] 500 mg PO QID #28 cap 11/11/22 Cephalexin [Keflex] 500 mg PO QID 7 Days #28 cap 12/11/22 Sulfamethox-Tmp 800-160Mg [Bactrim 1 each PO Q12HR #14 tab 01/12/23 Ds] Amoxic-Pot Clav 875-125Mg 1 tab PO Q12HR 10 Days #20 tab 01/16/23 [Augmentin 875-125] cefUROXime axetiL [Ceftin] 500 mg PO BID 10 Days #20 tab 02/01/23 Ciprofloxacin HCl [Cipro] 500 mg PO Q12HR #20 tablet 03/08/23 Sulfamethox-Tmp 800-160Mg [Bactrim 1 tab PO Q12HR 7 Days #14 tab 03/27/23 DS 800-160 mg] Sulfamethox-Tmp 800-160Mg [Bactrim 1 tab PO Q12HR 7 Days #14 tab 08/22/23 DS 800-160 mg] Allergies Allergy/AdvReac Type Severity Reaction Status Date / Time No Known Allergies Allergy Verified 11/12/23 05:31 Review of Systems ROS Statement: Those systems with pertinent positive or pertinent negative responses have been documented in the HPI. ROS Other: All systems not noted in ROS Statement are negative. Past Medical History Past Medical History: Hyperlipidemia, Prostate Disorder Additional Past Medical History / Comment(s): covid fall 2020, PATIENT IS ABLE TO SIGN HIS OWN CONSENT. 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 Bilateral foot surgery Past Psychological History: No Psychological Hx Reported Smoking Status: Former smoker Past Alcohol Use History: None Reported Past Drug Use History: None Reported - Past Family History Mother Family Medical History: Unable to Obtain General Exam Limitations: no limitations General appearance: alert, other (in pain) Head exam: Present: atraumatic, normocephalic, normal inspection Eye exam: Present: normal appearance, PERRL, EOMI. Absent: scleral icterus, conjunctival injection, periorbital swelling ENT exam: Present: normal exam, mucous membranes moist Neck exam: Present: normal inspection. Absent: tenderness, meningismus, lymphadenopathy Respiratory exam: Present: normal lung sounds bilaterally. Absent: respiratory distress, wheezes, rales, rhonchi, stridor Cardiovascular Exam: Present: regular rate, normal rhythm, normal heart sounds. Absent: systolic murmur, diastolic murmur, rubs, gallop, clicks GI/Abdominal exam: Present: soft, tenderness (Suprapubic), normal bowel sounds. Absent: distended, guarding, rebound, rigid Extremities exam: Present: normal inspection, full ROM, normal capillary refill. Absent: tenderness, pedal edema, joint swelling, calf tenderness Back exam: Present: normal inspection Neurological exam: Present: alert, oriented X3, CN II-XII intact Psychiatric exam: Present: normal affect, normal mood Skin exam: Present: warm, dry, intact, normal color. Absent: rash Course Vital Signs 11/12/23 05:27 Temperature 96.9 F L Pulse Rate 76 Respiratory 20 Rate Blood Pressure 148/95 O2 Sat by Pulse 100 Oximetry Medical Decision Making - Medical Decision Making Was pt. sent in by a medical professional or institution (, PA, [employer], urgent care, hospital, or [facility]...) When possible be specific @ -No Did you speak to anyone other than the patient for history (EMS, parent, family, police, friend...)? What history was obtained from this source @ -EMS Did you review nursing and triage notes (agree or disagree)? Why? @ -I reviewed and agree with nursing and triage notes Were old charts reviewed (outside hosp., previous admission, EMS record, old EKG, old radiological studies, urgent care reports/EKG's, [facility] records)? Report findings @ -No old charts were reviewed Differential Diagnosis (chest pain, altered mental status, abdominal pain women, abdominal pain men, vaginal bleeding, weakness, fever, dyspnea, syncope, headache, dizziness, GI bleed, back pain, seizure, CVA, palpatations, mental health, musculoskeletal)? @ -Differential Abdominal Pain Men: Appendicitis, cholecystitis, diverticulosis, ischemic bowel, pancreatitis, hepatitis, UTI, gastroenteritis, AAA, incarcerated hernia, bowel obstruction, constipation, inflammatory bowel, hepatitis, peptic ulcer disease, splenic infarction, perforated viscus, testicular torsion, this is not meant to be an all-inclusive list EKG interpreted by me (3pts min.). @ -Not done X-rays interpreted by me (1pt min.). @ -None done CT interpreted by me (1pt min.). @ -None done U/S interpreted by me (1pt. min.). @ -None done What testing was considered but not performed or refused? (CT, X-rays, U/S, labs)? Why? @ -None What meds were considered but not given or refused? Why? @ -None Did you discuss the management of the patient with other professionals (professionals i.e. Dr., PA, [employer], lab, RT, psych nurse, criminal justice social worker, casino porter, teacher, finance officer, immigration case worker)? Give summary @ -No Was smoking cessation discussed for >3mins.? @ -No Was critical care preformed (if so, how long)? @ -No Were there social determinants of health that impacted care today? How? (Homelessness, low income, unemployed, alcoholism, drug addiction, transportation, low edu. Level, literacy, decrease access to med. care, [facility], rehab)? @ -No Was there de-escalation of care discussed even if they declined (Discuss DNR or withdrawal of care, Hospice)? DNR status @ -No What co-morbidities impacted this encounter? (DM, HTN, Smoking, COPD, CAD, Cancer, CVA, ARF, Chemo, Hep., AIDS, mental health diagnosis, sleep apnea, morbid obesity)? @ -Urinary retention with chronic indwelling Mohan Was patient admitted / discharged? Hospital course, mention meds given and route, prescriptions, significant lab abnormalities, going to OR and other pertinent info. @ -Discharged. Upon arrival patient was placed into room 20. Thorough history and physical exam was performed. We did attempt to flush the patient's Mohan however we are unsuccessful. Mohan is changed at this time. We did replace the patient's 18 Martiniquais catheter. He does have instant drainage of 600 cc. Patient feels improved at this time. He will be discharged home. Instructed to follow- up and have his Mohan changed as directed. Return for any new or worsening symptoms Undiagnosed new problem with uncertain prognosis? @ -No Drug Therapy requiring intensive monitoring for toxicity (Heparin, Nitro, Insulin, Cardizem)? @ -No Were any procedures done? @ -No Diagnosis/symptom? @ -Acute urinary catheter malfunction, chronic urinary retention Acute, or Chronic, or Acute on Chronic? @ -Acute on chronic Uncomplicated (without systemic symptoms) or Complicated (systemic symptoms)? @ -Uncomplicated Side effects of treatment? @ -No Exacerbation, Progression, or Severe Exacerbation? @ -No Poses a threat to life or bodily function? How? (Chest pain, [place], [place], pneumonia, PE, COPD, DKA, ARF, appy, cholecystitis, CVA, Diverticulitis, Homicidal, Suicidal, threat to staff... and all critical care pts) @ -No Disposition Clinical Impression: Malfunction of Mohan catheter Disposition: HOME SELF-CARE Condition: Stable Instructions (If sedation given, give patient instructions): Mohan Catheter Placement and Care (ED) Additional Instructions: Your catheter was replaced today Is patient prescribed a controlled substance at d/c from ED?: No Referrals: Rm Patel DO [Primary Care Provider] - 1-2 days Time of Disposition: 06:01
== END 2023-11-12 07:03 | disposition home or self-care (01) ==
LOC: EC 05:26
DX: T83.091A Other mechanical complication of indwelling urethral catheter, initial encounter (principal); E78.5 Hyperlipidemia, unspecified; Z87.891 Personal history of nicotine dependence; Z79.899 Other long term (current) drug therapy; Z79.82 Long term (current) use of aspirin; Z86.16 Personal history of COVID-19
CPT/HCPCS: 51702; 99283

== ENCOUNTER 2023-11-20 20:00 | Emergency (ER) | payer MEDICARE, BC ==
[2023-11-20 20:33] VITALS: TEMP 98
--- NOTE | 2023-11-20 20:45 | ED ---
General Adult HPI - General Chief complaint: Recheck/Abnormal Lab/Rx Stated complaint: urinary issue Time Seen by Provider: 11/20/23 20:05 Source: patient, EMS Mode of arrival: EMS Limitations: no limitations - History of Present Illness Initial comments: 82-year-old male well-known to the emergency department who presents for catheter problems. States that he has not had any output in his Mohan bag in the past 5 hours. He admits to suprapubic distention and pain. Catheter was last changed on November 12 at our facility. He denies trauma to the catheter. No fevers. No hematuria. No other alleviating, precipitating or modifying factors - Related Data Home Medications Medication Instructions Recorded Confirmed Aspirin EC [Ecotrin] 325 mg PO DAILY 10/15/14 03/02/22 Lovastatin [Mevacor] 40 mg PO HS 10/15/14 03/02/22 Cholecalciferol [Vitamin D3 (25 25 mcg PO DAILY 08/04/21 02/26/22 Mcg = 1000 Iu)] Divalproex ER [Depakote ER] 500 mg PO HS 08/04/21 03/02/22 Donepezil HCl [Aricept] 10 mg PO HS 08/04/21 03/02/22 Magnesium Hydroxide [Milk of 1 dose PO DIRECTED PRN 02/26/22 02/26/22 Magnesia] Multivitamins, Thera [Multivitamin 1 tab PO DAILY 02/26/22 03/02/22 (formulary)] Sennosides [Senna] 1 tab PO DAILY 02/26/22 03/02/22 Previous Rx's Medication Instructions Recorded Sulfamethox-Tmp 800-160Mg [Bactrim 1 tab PO Q12HR 5 Days #10 tab 06/05/22 DS 800-160 mg] Nitrofurantoin Monohyd/M-Cryst 100 mg PO Q12HR #14 cap 06/29/22 [Macrobid] cefUROXime axetiL [Ceftin] 500 mg PO BID 10 Days #20 tab 08/04/22 cefUROXime axetiL [Ceftin] 500 mg PO BID 10 Days #20 tab 09/10/22 Cephalexin [Keflex] 500 mg PO Q6HR #28 cap 10/04/22 Cephalexin [Keflex] 500 mg PO QID #28 cap 11/11/22 Cephalexin [Keflex] 500 mg PO QID 7 Days #28 cap 12/11/22 Sulfamethox-Tmp 800-160Mg [Bactrim 1 each PO Q12HR #14 tab 01/12/23 Ds] Amoxic-Pot Clav 875-125Mg 1 tab PO Q12HR 10 Days #20 tab 01/16/23 [Augmentin 875-125] cefUROXime axetiL [Ceftin] 500 mg PO BID 10 Days #20 tab 02/01/23 Ciprofloxacin HCl [Cipro] 500 mg PO Q12HR #20 tablet 03/08/23 Sulfamethox-Tmp 800-160Mg [Bactrim 1 tab PO Q12HR 7 Days #14 tab 03/27/23 DS 800-160 mg] Sulfamethox-Tmp 800-160Mg [Bactrim 1 tab PO Q12HR 7 Days #14 tab 08/22/23 DS 800-160 mg] Allergies Allergy/AdvReac Type Severity Reaction Status Date / Time No Known Allergies Allergy Verified 11/12/23 05:31 Review of Systems ROS Statement: Those systems with pertinent positive or pertinent negative responses have been documented in the HPI. ROS Other: All systems not noted in ROS Statement are negative. Past Medical History Past Medical History: Hyperlipidemia, Prostate Disorder Additional Past Medical History / Comment(s): covid fall 2020, PATIENT IS ABLE TO SIGN HIS OWN CONSENT. 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 Bilateral foot surgery Past Psychological History: No Psychological Hx Reported Smoking Status: Former smoker Past Alcohol Use History: None Reported Past Drug Use History: None Reported - Past Family History Mother Family Medical History: Unable to Obtain General Exam Limitations: no limitations General appearance: alert, in no apparent distress Head exam: Present: atraumatic, normocephalic, normal inspection Eye exam: Present: normal appearance, PERRL, EOMI. Absent: scleral icterus, conjunctival injection, periorbital swelling ENT exam: Present: normal exam, mucous membranes moist Neck exam: Present: normal inspection. Absent: tenderness, meningismus, lymphadenopathy Respiratory exam: Present: normal lung sounds bilaterally. Absent: respiratory distress, wheezes, rales, rhonchi, stridor Cardiovascular Exam: Present: regular rate, normal rhythm, normal heart sounds. Absent: systolic murmur, diastolic murmur, rubs, gallop, clicks GI/Abdominal exam: Present: soft, tenderness (Suprapubic fullness), normal bowel sounds. Absent: distended, guarding, rebound, rigid Extremities exam: Present: normal inspection, full ROM, normal capillary refill. Absent: tenderness, pedal edema, joint swelling, calf tenderness Back exam: Present: normal inspection Neurological exam: Present: alert, oriented X3, CN II-XII intact Psychiatric exam: Present: normal affect, normal mood Skin exam: Present: warm, dry, intact, normal color. Absent: rash Course Vital Signs 11/20/23 11/20/23 20:04 21:51 Temperature 98.0 F Pulse Rate 78 72 Respiratory 20 18 Rate Blood Pressure 172/96 143/91 O2 Sat by Pulse 100 99 Oximetry Medical Decision Making - Medical Decision Making Was pt. sent in by a medical professional or institution (, PA, [employer], urgent care, hospital, or snf...) When possible be specific @ -No Did you speak to anyone other than the patient for history (EMS, parent, family, police, friend...)? What history was obtained from this source @ -EMS Did you review nursing and triage notes (agree or disagree)? Why? @ -I reviewed and agree with nursing and triage notes Were old charts reviewed (outside hosp., previous admission, EMS record, old EKG, old radiological studies, urgent care reports/EKG's, snf records)? Report findings @ -I reviewed the patient's previous ED visit on November 12 Differential Diagnosis (chest pain, altered mental status, abdominal pain women, abdominal pain men, vaginal bleeding, weakness, fever, dyspnea, syncope, headache, dizziness, GI bleed, back pain, seizure, CVA, palpatations, mental health, musculoskeletal)? @ -Catheter malfunction, hematuria, UTI, bladder spasm EKG interpreted by me (3pts min.). @ -Not done X-rays interpreted by me (1pt min.). @ -None done CT interpreted by me (1pt min.). @ -None done U/S interpreted by me (1pt. min.). @ -None done What testing was considered but not performed or refused? (CT, X-rays, U/S, labs)? Why? @ -None What meds were considered but not given or refused? Why? @ -None Did you discuss the management of the patient with other professionals (professionals i.e. , PA, [employer], lab, RT, psych nurse, social services designee, design lead, teacher, wildlife conservation officer, catalytic case operator)? Give summary @ -No Was smoking cessation discussed for >3mins.? @ -No Was critical care preformed (if so, how long)? @ -No Were there social determinants of health that impacted care today? How? (Homelessness, low income, unemployed, alcoholism, drug addiction, transportation, low edu. Level, literacy, decrease access to med. care, half-way, rehab)? @ -No Was there de-escalation of care discussed even if they declined (Discuss DNR or withdrawal of care, Hospice)? DNR status @ -No What co-morbidities impacted this encounter? (DM, HTN, Smoking, COPD, CAD, Cancer, CVA, ARF, Chemo, Hep., AIDS, mental health diagnosis, sleep apnea, morbid obesity)? @ -Urinary retention with chronic Mohan placement Was patient admitted / discharged? Hospital course, mention meds given and route, prescriptions, significant lab abnormalities, going to OR and other pertinent info. @ -Upon arrival patient was placed into room 31. Thorough history and physical exam was performed. I am unable to flush the patient's catheter and therefore the catheter is replaced. He does get 600 cc of immediate output. Patient will be discharged home. Given urology follow-up. Instructed to return for any new or worsening symptoms. Patient discharged in stable condition Undiagnosed new problem with uncertain prognosis? @ -No Drug Therapy requiring intensive monitoring for toxicity (Heparin, Nitro, Insulin, Cardizem)? @ -No Were any procedures done? @ -No Diagnosis/symptom? @ -Acute Mohan catheter malfunction Acute, or Chronic, or Acute on Chronic? @ -Acute on chronic Uncomplicated (without systemic symptoms) or Complicated (systemic symptoms)? @ -Uncomplicated Side effects of treatment? @ -No Exacerbation, Progression, or Severe Exacerbation? @ -No Poses a threat to life or bodily function? How? (Chest pain, [place], [place], pneumonia, PE, COPD, DKA, ARF, appy, cholecystitis, CVA, Diverticulitis, Homicidal, Suicidal, threat to staff... and all critical care pts) @ -No Disposition Clinical Impression: Malfunction of Mohan catheter Disposition: HOME SELF-CARE Condition: Stable Instructions (If sedation given, give patient instructions): Urinary Retention in Men (ED) Additional Instructions: Please follow-up with the urologist and return for any new or worsening symptoms Is patient prescribed a controlled substance at d/c from ED?: No Referrals: Rm Patel DO [Primary Care Provider] - 1-2 days Time of Disposition: 20:44
[2023-11-20 22:15] VITALS: BP 143/91; PULSE 72; RESP 18
== END 2023-11-20 21:52 | disposition home or self-care (01) ==
LOC: EC 20:00
DX: T83.091A Other mechanical complication of indwelling urethral catheter, initial encounter (principal); E78.5 Hyperlipidemia, unspecified; Z86.16 Personal history of COVID-19; Z87.891 Personal history of nicotine dependence; Z79.899 Other long term (current) drug therapy
CPT/HCPCS: 51702; 99284

== ENCOUNTER 2023-11-25 06:41 | Emergency (ER) | payer MEDICARE, BC ==
--- NOTE | 2023-11-25 07:11 | ED ---
Male Urogenital HPI - General Chief complaint: Urogenital Stated complaint: Catheter Malfunction Time Seen by Provider: 11/25/23 06:42 Source: patient, EMS, RN notes reviewed Mode of arrival: EMS Limitations: no limitations - History of Present Illness Initial comments: This is an 82-year-old male who presents to the emergency department for problems with his Mohan catheter. Patient woke up around 2 AM, and felt like he had some discomfort in the suprapubic region. He looked at his Mohan catheter and thought that it was no longer draining. 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 This was last changed at our facility 11/20, when he had presented for problems with the catheter not functioning. Denies any fever/chills. Not currently on any antibiotics. - Related Data Home Medications Medication Instructions Recorded Confirmed Aspirin EC [Ecotrin] 325 mg PO DAILY 10/15/14 03/02/22 Lovastatin [Mevacor] 40 mg PO HS 10/15/14 03/02/22 Cholecalciferol [Vitamin D3 (25 25 mcg PO DAILY 08/04/21 02/26/22 Mcg = 1000 Iu)] Divalproex ER [Depakote ER] 500 mg PO HS 08/04/21 03/02/22 Donepezil HCl [Aricept] 10 mg PO HS 08/04/21 03/02/22 Magnesium Hydroxide [Milk of 1 dose PO DIRECTED PRN 02/26/22 02/26/22 Magnesia] Multivitamins, Thera [Multivitamin 1 tab PO DAILY 02/26/22 03/02/22 (formulary)] Sennosides [Senna] 1 tab PO DAILY 02/26/22 03/02/22 Previous Rx's Medication Instructions Recorded Sulfamethox-Tmp 800-160Mg [Bactrim 1 tab PO Q12HR 5 Days #10 tab 06/05/22 DS 800-160 mg] Nitrofurantoin Monohyd/M-Cryst 100 mg PO Q12HR #14 cap 06/29/22 [Macrobid] cefUROXime axetiL [Ceftin] 500 mg PO BID 10 Days #20 tab 08/04/22 cefUROXime axetiL [Ceftin] 500 mg PO BID 10 Days #20 tab 09/10/22 Cephalexin [Keflex] 500 mg PO Q6HR #28 cap 10/04/22 Cephalexin [Keflex] 500 mg PO QID #28 cap 11/11/22 Cephalexin [Keflex] 500 mg PO QID 7 Days #28 cap 12/11/22 Sulfamethox-Tmp 800-160Mg [Bactrim 1 each PO Q12HR #14 tab 01/12/23 Ds] Amoxic-Pot Clav 875-125Mg 1 tab PO Q12HR 10 Days #20 tab 01/16/23 [Augmentin 875-125] cefUROXime axetiL [Ceftin] 500 mg PO BID 10 Days #20 tab 02/01/23 Ciprofloxacin HCl [Cipro] 500 mg PO Q12HR #20 tablet 03/08/23 Sulfamethox-Tmp 800-160Mg [Bactrim 1 tab PO Q12HR 7 Days #14 tab 03/27/23 DS 800-160 mg] Sulfamethox-Tmp 800-160Mg [Bactrim 1 tab PO Q12HR 7 Days #14 tab 08/22/23 DS 800-160 mg] cefUROXime axetiL [Ceftin] 500 mg PO BID 10 Days #20 tab 11/25/23 Allergies Allergy/AdvReac Type Severity Reaction Status Date / Time No Known Allergies Allergy Verified 11/25/23 06:51 Review of Systems ROS Statement: Those systems with pertinent positive or pertinent negative responses have been documented in the HPI. ROS Other: All systems not noted in ROS Statement are negative. Past Medical History Past Medical History: Hyperlipidemia, Prostate Disorder Additional Past Medical History / Comment(s): covid fall 2020, PATIENT IS ABLE TO SIGN HIS OWN CONSENT. 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 Bilateral foot surgery Past Psychological History: No Psychological Hx Reported Smoking Status: Former smoker Past Alcohol Use History: None Reported Past Drug Use History: None Reported - Past Family History Mother Family Medical History: Unable to Obtain General Exam Limitations: no limitations General appearance: alert, in no apparent distress Head exam: Present: atraumatic, normocephalic, normal inspection Respiratory exam: Present: normal lung sounds bilaterally. Absent: respiratory distress, wheezes, rales, rhonchi, stridor Cardiovascular Exam: Present: regular rate, normal rhythm, normal heart sounds. Absent: systolic murmur, diastolic murmur, rubs, gallop, clicks Neurological exam: Present: alert, oriented X3, CN II-XII intact Psychiatric exam: Present: normal affect, normal mood Skin exam: Present: warm, dry, intact, normal color. Absent: rash Course Vital Signs 11/25/23 11/25/23 06:43 08:26 Temperature 96.8 F L 98.6 F Pulse Rate 73 76 Respiratory 18 16 Rate Blood Pressure 172/92 135/94 O2 Sat by Pulse 99 99 Oximetry Medical Decision Making - Medical Decision Making This is an 82 year old male who presents to the emergency department for problems with his Mohan catheter. Was pt. sent in by a medical professional or institution? @ -No Did you speak to anyone other than the patient for history? @ -No Did you review nursing and triage notes? @ -Yes, and I agree, it is accurate with regards to the patient's symptoms. Were old charts reviewed? @ -No Differential Diagnosis? @ -Differential Mohan Catheter Problems: Malposition, UTI, blood clot, obstruction, this is not meant to be an all- inclusive list. EKG interpreted by me (3pts min.)? @ -Not obtained X-rays interpreted by me (1pt min.)? @ -Not obtained CT interpreted by me (1pt min.)? @ -Not obtained U/S interpreted by me (1pt. min.)? @ -Not obtained What testing was considered but not performed? (CT, X-rays, U/S, labs)? Why? @ -None What meds were considered but not given? Why? @ -None Did you discuss the management of the patient with other professionals? @ -No Did you reconcile home meds? @ -No Was smoking cessation discussed for >3mins.? @ -No Was critical care preformed (if so, how long)? @ -No Were there social determinants of health that impacted care today? How? (Homelessness, low income, unemployed, alcoholism, drug addiction, tr ansportation, low edu. Level, literacy, decrease access to med. care, long term, rehab)? @ -No Was there de-escalation of care discussed even if they declined? (Discuss DNR or withdrawal of care, Hospice)? @ -No What co-morbidities impacted this encounter? (DM, HTN, Smoking, COPD, CAD, Cancer, CVA, Hep., AIDS, mental health diagnosis, sleep apnea, morbid obesity)? @ -Chronic urinary retention, prostate problem Was patient admitted / discharged? @ -Discharged. On arrival, the staff were initially unable to get any urine output when pulling back on the syringe. However, at shift change the next nurse was able to pull back and breakthrough the sediment. Afterwards the Mohan was irrigated and found to be patent and draining appropriately. Patient had almost immediate relief afterwards and the Mohan catheter did not have to be replaced. Urinalysis suggestive of infection with positive nitrates. Urine sent for culture. Ceftriaxone administered in the emergency department and a prescription for cefuroxime was provided with dosing instructions reviewed. Patient d ischarged home in stable condition and advised to follow up with his PCP and urology. Undiagnosed new problem with uncertain prognosis? @ -None Drug Therapy requiring intensive monitoring for toxicity (Heparin, Nitro, Insulin, Cardizem)? @ -None Were any procedures done? @ -None Diagnosis/symptom? @ -UTI, Mohan catheter malfunction Acute, or Chronic, or Acute on Chronic? @ -Acute Uncomplicated (without systemic symptoms) or Complicated (systemic symptoms)? @ -Uncomplicated Side effects of treatment? @ -None Exacerbation, Progression, or Severe Exacerbation] @ -Not applicable Poses a threat to life or bodily function? @ -No Return precautions reviewed in depth, the patient is instructed to return to the emergency department with any new, worsening, or concerning symptoms. Patient verbalized understanding. This case was discussed in detail with the attending ED physician, Dr. Mathews. Presentation, findings, and treatment plan discussed in detail as well. - Lab Data Lab Results 11/25/23 Range/Units 06:58 Urine Color Light Yellow Urine Appearance Turbid (Clear) Urine pH 8.5 H (5.0-8.0) Ur Specific Dorothy 1.018 (1.001-1.035) Urine Protein 2+ H (Negative) Urine Glucose (UA) Negative (Negative) Urine Ketones Negative (Negative) Urine Blood Negative (Negative) Urine Nitrite Positive (Negative) Urine Bilirubin Negative (Negative) Urine Urobilinogen <2.0 (<2.0) mg/dL Ur Leukocyte Esterase Large H (Negative) Urine RBC 22 H (0-5) /hpf Urine WBC 14 H (0-5) /hpf Ur Squamous Epith Cells <1 (0-4) /hpf Calcium Phosphate Cryst Few H (None) /hpf Urine Bacteria Occasional H (None) /hpf Disposition Clinical Impression: UTI (urinary tract infection), Mohan catheter problem Disposition: HOME SELF-CARE Instructions (If sedation given, give patient instructions): Urinary Tract Infection in Men (ED), Mohan Catheter Placement and Care (ED) Additional Instructions: Return to the emergency department with any new, worsening, or concerning symptoms. Take the antibiotic as prescribed for 10 days. Follow up with your primary care provider in 1-2 days and with urology. Prescriptions: cefUROXime axetiL [Ceftin] 500 mg PO BID 10 Days #20 tab Is patient prescribed a controlled substance at d/c from ED?: No Referrals: Rm Patel DO [Primary Care Provider] - 1-2 days Time of Disposition: 08:51
[2023-11-25 07:16] LABS: Appearance,Urine Turbid (Clear); Bacteria,Urine Occasional /hpf; Bilirubin,Urine Negative (Negative); Blood,Urine Negative (Negative); Calcium Phosphate Crystals,Ur Few /hpf; Color,Urine Light Yellow; Glucose,Urine (UA) Negative (Negative); Ketones,Urine Negative (Negative); Leukocyte Esterase,Urine Large (Negative); Nitrite,Urine Positive (Negative); PH, Urine 8.5 (5.0-8.0); Protein,Urine 2+ (Negative); RBC,Urine 22 /hpf (0-5); Specific Gravity,Urine 1.018 (1.001-1.035); Squamous Epithelial Cell,Urine <1 /hpf (0-4); Urobilinogen,Urine <2.0 mg/dL (<2.0); WBC,Urine 14 /hpf (0-5)
[2023-11-25] MEDS: cefTRIAXone 1,000 MG VIAL (IM USE) IM STA (08:42)
[2023-11-25 08:51] VITALS: BP 135/94; PULSE 76; RESP 16; TEMP 98.6
== END 2023-11-25 10:01 | disposition home or self-care (01) ==
LOC: EC 06:41
DX: T83.091A Other mechanical complication of indwelling urethral catheter, initial encounter (principal); N39.0 Urinary tract infection, site not specified; B96.89 Other specified bacterial agents as the cause of diseases classified elsewhere; E78.5 Hyperlipidemia, unspecified; Z79.899 Other long term (current) drug therapy; Z87.891 Personal history of nicotine dependence; Z86.16 Personal history of COVID-19
CPT/HCPCS: 51798; 81001; 87086; 99284; 96372; J0696; 87077; 87186

== ENCOUNTER → 2023-11-30 | Outpatient (CLI) | payer BC, MEDICARE, OTHER ==
--- NOTE | 2023-11-30 21:23 | CT ---
EXAMINATION TYPE: CT brain wo con DATE OF EXAM: 11/30/2023 COMPARISON: None HISTORY: 82-year-old male F02.C0, Dementia TECHNIQUE: Examination was done in axial plane without intravenous contrast. Coronal and sagittal r econstructions performed. CT DLP: Combined DLP of 1616.5 mGycm Automated exposure control for dose reduction was used. FINDINGS: There is no evidence of acute intracranial hemorrhage, acute ischemic changes, mass, mass-effect, or extra-axial fluid collection. There is no effacement of cerebral sulci or basal subarachnoid cister ns. There is no hydrocephalus. There is no midline shift. Walker-white matter distinction is preserv ed. Moderate cerebral cortical volume loss in both cerebral hemispheres. Atherosclerotic calcifications i n the carotid siphons Mild lobulated mucosal thickening anterior floor of the right maxillary sinus. Mastoid air cells well pneumatized. Orbits and globes are intact. Rightward nasal septal deviation. IMPRESSION: 1. Moderate cerebral cortical atrophy. 2. No acute intracranial abnormality seen.
== END | disposition home or self-care (01) ==
LOC: RADCTMAIN 13:57
PROVIDERS: ATTEND Internal Medicine
DX: G31.89 Other specified degenerative diseases of nervous system (principal); I79.0 Aneurysm of aorta in diseases classified elsewhere; F02.C0 Dementia in other diseases classified elsewhere, severe, without behavioral disturbance, psychotic disturbance, mood disturbance, and anxiety; G31.9 Degenerative disease of nervous system, unspecified
CPT/HCPCS: 70450; 71250

== ENCOUNTER 2023-12-22 12:28 | Emergency (ER) | payer BC, MEDICARE ==
--- NOTE | 2023-12-22 12:41 | ED ---
General Adult HPI - General Stated complaint: blocked urinary cath Time Seen by Provider: 12/22/23 12:30 Source: patient, RN notes reviewed, old records reviewed - History of Present Illness Initial comments: This is a 83-year-old male who presents to the emergency department complaining of his urinary catheter being stuck. Patient states he gets replaced every 2 weeks and today they could not get the catheter out. Patient denies any abdominal pain patient denies any burning or any dysuria. Patient states the urine has been clear patient denies fever chills patient denies back pain. - Related Data Home Medications Medication Instructions Recorded Confirmed Aspirin EC [Ecotrin] 325 mg PO DAILY 10/15/14 03/02/22 Lovastatin [Mevacor] 40 mg PO HS 10/15/14 03/02/22 Cholecalciferol [Vitamin D3 (25 25 mcg PO DAILY 08/04/21 02/26/22 Mcg = 1000 Iu)] Divalproex ER [Depakote ER] 500 mg PO HS 08/04/21 03/02/22 Donepezil HCl [Aricept] 10 mg PO HS 08/04/21 03/02/22 Magnesium Hydroxide [Milk of 1 dose PO DIRECTED PRN 02/26/22 02/26/22 Magnesia] Multivitamins, Thera [Multivitamin 1 tab PO DAILY 02/26/22 03/02/22 (formulary)] Sennosides [Senna] 1 tab PO DAILY 02/26/22 03/02/22 Previous Rx's Medication Instructions Recorded Sulfamethox-Tmp 800-160Mg [Bactrim 1 tab PO Q12HR 5 Days #10 tab 06/05/22 DS 800-160 mg] Nitrofurantoin Monohyd/M-Cryst 100 mg PO Q12HR #14 cap 06/29/22 [Macrobid] cefUROXime axetiL [Ceftin] 500 mg PO BID 10 Days #20 tab 08/04/22 cefUROXime axetiL [Ceftin] 500 mg PO BID 10 Days #20 tab 09/10/22 Cephalexin [Keflex] 500 mg PO Q6HR #28 cap 10/04/22 Cephalexin [Keflex] 500 mg PO QID #28 cap 11/11/22 Cephalexin [Keflex] 500 mg PO QID 7 Days #28 cap 12/11/22 Sulfamethox-Tmp 800-160Mg [Bactrim 1 each PO Q12HR #14 tab 01/12/23 Ds] Amoxic-Pot Clav 875-125Mg 1 tab PO Q12HR 10 Days #20 tab 01/16/23 [Augmentin 875-125] cefUROXime axetiL [Ceftin] 500 mg PO BID 10 Days #20 tab 02/01/23 Ciprofloxacin HCl [Cipro] 500 mg PO Q12HR #20 tablet 03/08/23 Sulfamethox-Tmp 800-160Mg [Bactrim 1 tab PO Q12HR 7 Days #14 tab 03/27/23 DS 800-160 mg] Sulfamethox-Tmp 800-160Mg [Bactrim 1 tab PO Q12HR 7 Days #14 tab 08/22/23 DS 800-160 mg] cefUROXime axetiL [Ceftin] 500 mg PO BID 10 Days #20 tab 11/25/23 Sulfamethox-Tmp 800-160Mg [Bactrim 1 tab PO Q12HR 7 Days #14 tab 11/30/23 DS 800-160 mg] Allergies Allergy/AdvReac Type Severity Reaction Status Date / Time No Known Allergies Allergy Verified 12/22/23 12:41 Review of Systems ROS Statement: Those systems with pertinent positive or pertinent negative responses have been documented in the HPI. ROS Other: All systems not noted in ROS Statement are negative. Past Medical History Past Medical History: Hyperlipidemia, Prostate Disorder Additional Past Medical History / Comment(s): covid fall 2020, PATIENT IS ABLE TO SIGN HIS OWN CONSENT. 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 Bilateral foot surgery Past Psychological History: No Psychological Hx Reported Smoking Status: Former smoker Past Alcohol Use History: None Reported Past Drug Use History: None Reported - Past Family History Mother Family Medical History: Unable to Obtain General Exam - General Exam Comments Initial Comments: GENERAL Patient is well-developed and well-nourished. Patient is in mild distress. EYES Patient's pupils are equal and round. Extraocular motion is intact SKIN Unremarkable NEURO The patient is alert and oriented -3 PYSCH Patient has normal interpersonal interactions. MUSCULOSKELETAL Patient is full range of motion of all 4 extremities. GENITALIA Patient's catheter was not very mobile but with a couple of tugs the catheter came right out. Course Vital Signs 12/22/23 12/22/23 12/22/23 12:30 13:06 13:31 Temperature 98.2 F 98.2 F Pulse Rate 66 75 71 Respiratory 18 16 20 Rate Blood Pressure 141/77 147/86 139/83 O2 Sat by Pulse 100 100 99 Oximetry Medical Decision Making - Medical Decision Making Was pt. sent in by a medical professional or institution ([facility], [employer], urgent care, hospital, or detention...) When possible be specific @ -Patient was sent in by his home care nurse Did you speak to anyone other than the patient for history (EMS, parent, family, police, friend...)? What history was obtained from this source @ -No Did you review nursing and triage notes (agree or disagree)? Why? @ -I reviewed and agree with nursing and triage notes Were old charts reviewed (outside hosp., previous admission, EMS record, old EKG, old radiological studies, urgent care reports/EKG's, detention records)? Report findings @ -No old charts were reviewed Differential Diagnosis (chest pain, altered mental status, abdominal pain women, abdominal pain men, vaginal bleeding, weakness, fever, dyspnea, syncope, headache, dizziness, GI bleed, back pain, seizure, CVA, palpatations, mental health, musculoskeletal)? @ -Not applicable EKG interpreted by me (3pts min.). @ -As above X-rays interpreted by me (1pt min.). @ -None done CT interpreted by me (1pt min.). @ -None done U/S interpreted by me (1pt. min.). @ -None done What testing was considered but not performed or refused? (CT, X-rays, U/S, labs)? Why? @ -None What meds were considered but not given or refused? Why? @ -None Did you discuss the management of the patient with other professionals (professionals i.e. [facility], [employer], lab, RT, psych nurse, health care social worker, membership sales representative, teacher, licensed loan officer, counseling case manager)? Give summary @ -No Was smoking cessation discussed for >3mins.? @ -No Was critical care preformed (if so, how long)? @ -No Were there social determinants of health that impacted care today? How? (Homelessness, low income, unemployed, alcoholism, drug addiction, transportation, low edu. Level, literacy, decrease access to med. care, care home, rehab)? @ -No Was there de-escalation of care discussed even if they declined (Discuss DNR or withdrawal of care, Hospice)? DNR status @ -No What co-morbidities impacted this encounter? (DM, HTN, Smoking, COPD, CAD, Cancer, CVA, ARF, Chemo, Hep., AIDS, mental health diagnosis, sleep apnea, morbid obesity)? @ -None Was patient admitted / discharged? Hospital course, mention meds given and route, prescriptions, significant lab abnormalities, going to OR and other pertinent info. @ -Patient's catheter felt a little bit stuck but I manipulated it for less than 10 seconds and it slid right out without problem. Catheter was replaced without problem Undiagnosed new problem with uncertain prognosis? @ -No Drug Therapy requiring intensive monitoring for toxicity (Heparin, Nitro, Insulin, Cardizem)? @ -No Were any procedures done? @ -No Diagnosis/symptom? @ -Urinary catheter problem Acute, or Chronic, or Acute on Chronic? @ -Acute Uncomplicated (without systemic symptoms) or Complicated (systemic symptoms)? @ -Uncomplicated Side effects of treatment? @ -No Exacerbation, Progression, or Severe Exacerbation? @ -No Poses a threat to life or bodily function? How? (Chest pain, [place], [place], pneumonia, PE, COPD, DKA, ARF, appy, cholecystitis, CVA, Diverticulitis, Homicidal, Suicidal, threat to staff... and all critical care pts) @ -No Disposition Clinical Impression: Urinary catheter complication Disposition: HOME SELF-CARE Condition: Good Instructions (If sedation given, give patient instructions): Mohan Catheter Placement and Care (ED) Is patient prescribed a controlled substance at d/c from ED?: No Referrals: None,Stated [REFERRING] - 1-2 days Time of Disposition: 12:40
[2023-12-22 12:43] VITALS: TEMP 98.2
[2023-12-22 13:55] VITALS: BP 139/83; PULSE 71; RESP 20
== END 2023-12-22 13:33 | disposition home or self-care (01) ==
LOC: EC 12:28
DX: T83.098A Other mechanical complication of other urinary catheter, initial encounter (principal); Z87.891 Personal history of nicotine dependence
CPT/HCPCS: 51702; 99284

== ENCOUNTER 2024-01-14 13:48 | Emergency (ER) | payer MEDICARE ==
--- NOTE | 2024-01-14 14:12 | ED ---
General Adult HPI - General Chief complaint: Urogenital Stated complaint: Catheter issues Time Seen by Provider: 01/14/24 14:07 Source: patient, family, RN notes reviewed Mode of arrival: wheelchair Limitations: no limitations - History of Present Illness Initial comments: 83-year-old male presents emergency department chief complaint of Mohan catheter not draining. He states he normally has exchanged a couple weeks but has not had a exchange recently states that he just needs exchange as this happens denies any fevers or chills he states he just has pressure from not being able to urinate. No back pain no headache no dizziness no confusion - Related Data Home Medications Medication Instructions Recorded Confirmed Aspirin EC [Ecotrin] 325 mg PO DAILY 10/15/14 03/02/22 Lovastatin [Mevacor] 40 mg PO HS 10/15/14 03/02/22 Cholecalciferol [Vitamin D3 (25 25 mcg PO DAILY 08/04/21 02/26/22 Mcg = 1000 Iu)] Divalproex ER [Depakote ER] 500 mg PO HS 08/04/21 03/02/22 Donepezil HCl [Aricept] 10 mg PO HS 08/04/21 03/02/22 Magnesium Hydroxide [Milk of 1 dose PO DIRECTED PRN 02/26/22 02/26/22 Magnesia] Multivitamins, Thera [Multivitamin 1 tab PO DAILY 02/26/22 03/02/22 (formulary)] Sennosides [Senna] 1 tab PO DAILY 02/26/22 03/02/22 Previous Rx's Medication Instructions Recorded Sulfamethox-Tmp 800-160Mg [Bactrim 1 tab PO Q12HR 5 Days #10 tab 06/05/22 DS 800-160 mg] Nitrofurantoin Monohyd/M-Cryst 100 mg PO Q12HR #14 cap 06/29/22 [Macrobid] cefUROXime axetiL [Ceftin] 500 mg PO BID 10 Days #20 tab 08/04/22 cefUROXime axetiL [Ceftin] 500 mg PO BID 10 Days #20 tab 09/10/22 Cephalexin [Keflex] 500 mg PO Q6HR #28 cap 10/04/22 Cephalexin [Keflex] 500 mg PO QID #28 cap 11/11/22 Cephalexin [Keflex] 500 mg PO QID 7 Days #28 cap 12/11/22 Sulfamethox-Tmp 800-160Mg [Bactrim 1 each PO Q12HR #14 tab 01/12/23 Ds] Amoxic-Pot Clav 875-125Mg 1 tab PO Q12HR 10 Days #20 tab 01/16/23 [Augmentin 875-125] cefUROXime axetiL [Ceftin] 500 mg PO BID 10 Days #20 tab 02/01/23 Ciprofloxacin HCl [Cipro] 500 mg PO Q12HR #20 tablet 03/08/23 Sulfamethox-Tmp 800-160Mg [Bactrim 1 tab PO Q12HR 7 Days #14 tab 03/27/23 DS 800-160 mg] Sulfamethox-Tmp 800-160Mg [Bactrim 1 tab PO Q12HR 7 Days #14 tab 08/22/23 DS 800-160 mg] cefUROXime axetiL [Ceftin] 500 mg PO BID 10 Days #20 tab 11/25/23 Sulfamethox-Tmp 800-160Mg [Bactrim 1 tab PO Q12HR 7 Days #14 tab 11/30/23 DS 800-160 mg] Allergies Allergy/AdvReac Type Severity Reaction Status Date / Time No Known Allergies Allergy Verified 01/14/24 14:05 Review of Systems ROS Statement: Those systems with pertinent positive or pertinent negative responses have been documented in the HPI. ROS Other: All systems not noted in ROS Statement are negative. Past Medical History Past Medical History: Hyperlipidemia, Prostate Disorder Additional Past Medical History / Comment(s): covid fall 2020, PATIENT IS ABLE TO SIGN HIS OWN CONSENT. 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 Bilateral foot surgery Past Psychological History: No Psychological Hx Reported Smoking Status: Former smoker Past Alcohol Use History: None Reported Past Drug Use History: None Reported - Past Family History Mother Family Medical History: Unable to Obtain General Exam Limitations: no limitations General appearance: alert, in no apparent distress Head exam: Present: atraumatic, normocephalic, normal inspection Neck exam: Present: normal inspection. Absent: tenderness, meningismus, lymphadenopathy Respiratory exam: Present: normal lung sounds bilaterally. Absent: respiratory distress, wheezes, rales, rhonchi, stridor Cardiovascular Exam: Present: regular rate, normal rhythm, normal heart sounds. Absent: systolic murmur, diastolic murmur, rubs, gallop, clicks GI/Abdominal exam: Present: soft, distended, tenderness, normal bowel sounds. Absent: guarding, rebound, rigid Neurological exam: Present: alert Course Vital Signs 01/14/24 01/14/24 14:01 15:41 Temperature 97.5 F L 98.1 F Pulse Rate 80 78 Respiratory 18 18 Rate Blood Pressure 195/76 176/74 O2 Sat by Pulse 99 97 Oximetry Medical Decision Making - Medical Decision Making Was pt. sent in by a medical professional or institution (, [facility], [facility], urgent care, hospital, or jail...) When possible be specific @ -No Did you speak to anyone other than the patient for history (EMS, parent, family, police, friend...)? What history was obtained from this source @ -No Did you review nursing and triage notes (agree or disagree)? Why? @ -I reviewed and agree with nursing and triage notes Were old charts reviewed (outside hosp., previous admission, EMS record, old EKG, old radiological studies, urgent care reports/EKG's, jail records)? Report findings @ -No old charts were reviewed Differential Diagnosis (chest pain, altered mental status, abdominal pain women, abdominal pain men, vaginal bleeding, weakness, fever, dyspnea, syncope, headache, dizziness, GI bleed, back pain, seizure, CVA, palpatations, mental health, musculoskeletal)? @ -Mohan catheter complication, urinary retention EKG interpreted by me (3pts min.). @ -None X-rays interpreted by me (1pt min.). @ -None done CT interpreted by me (1pt min.). @ -None done U/S interpreted by me (1pt. min.). @ -None done What testing was considered but not performed or refused? (CT, X-rays, U/S, labs)? Why? @ -None What meds were considered but not given or refused? Why? @ -None Did you discuss the management of the patient with other professionals (professionals i.e. SIMON Lenz, [facility] [facility], lab, RT, psych nurse, manager social work, single stroke preformer, teacher, officer captain, manager of case management)? Give summary @ -No Was smoking cessation discussed for >3mins.? @ -No Was critical care preformed (if so, how long)? @ -No Were there social determinants of health that impacted care today? How? (Homelessness, low income, unemployed, alcoholism, drug addiction, transportation, low edu. Level, literacy, decrease access to med. care, custodial, rehab)? @ -No Was there de-escalation of care discussed even if they declined (Discuss DNR or withdrawal of care, Hospice)? DNR status @ -No What co-morbidities impacted this encounter? (DM, HTN, Smoking, COPD, CAD, Cancer, CVA, ARF, Chemo, Hep., AIDS, mental health diagnosis, sleep apnea, morbid obesity)? @ -None Was patient admitted / discharged? Hospital course, mention meds given and route, prescriptions, significant lab abnormalities, going to OR and other pertinent info. @ -Discharge urine catheter was exchanged by nurse. Patient is discharged in stable condition. Undiagnosed new problem with uncertain prognosis? @ -No Drug Therapy requiring intensive monitoring for toxicity (Heparin, Nitro, Insulin, Cardizem)? @ -No Were any procedures done? @ -No Diagnosis/symptom? @ -Mohan catheter complication Acute, or Chronic, or Acute on Chronic? @ -Acute Uncomplicated (without systemic symptoms) or Complicated (systemic symptoms)? @ -Uncomplicated Side effects of treatment? @ -No Exacerbation, Progression, or Severe Exacerbation? @ -No Poses a threat to life or bodily function? How? (Chest pain, [place], [place], pneumonia, PE, COPD, DKA, ARF, appy, cholecystitis, CVA, Diverticulitis, Homicidal, Suicidal, threat to staff... and all critical care pts) @ -No Disposition Clinical Impression: Urinary catheter complication Disposition: HOME SELF-CARE Condition: Stable Instructions (If sedation given, give patient instructions): Mohan Catheter Placement and Care (ED) Additional Instructions: Please return to the Emergency Department if symptoms worsen or any other concerns. Is patient prescribed a controlled substance at d/c from ED?: No Referrals: [facility],Clinic [Primary Care Provider] - 1-2 days Time of Disposition: 14:57
[2024-01-14 15:08] VITALS: RESP 18
[2024-01-14 15:46] VITALS: BP 176/74; PULSE 78; TEMP 98.1
== END 2024-01-14 15:42 | disposition home or self-care (01) ==
LOC: EC 13:48
DX: T83.091A Other mechanical complication of indwelling urethral catheter, initial encounter (principal); Y73.8 Miscellaneous gastroenterology and urology devices associated with adverse incidents, not elsewhere classified; Z87.891 Personal history of nicotine dependence; Z86.16 Personal history of COVID-19
CPT/HCPCS: 51702; 99283

== ENCOUNTER 2024-01-21 00:49 | Emergency (ER) | payer MEDICARE, BC, OTHER ==
[2024-01-21 01:26] VITALS: TEMP 97.7
--- NOTE | 2024-01-21 02:21 | ED ---
Male Urogenital HPI - General Chief complaint: Urogenital Stated complaint: Cath malfunction Time Seen by Provider: 01/21/24 01:00 Source: patient Mode of arrival: ambulatory Limitations: no limitations - History of Present Illness Initial comments: 83-year-old male presenting with chief complaint of occluded Mohan catheter. He has not had any drainage in the bag for several hours. He is having suprapubic pressure. No fevers or vomiting. Does not remember the last time his Mohan was changed. No hematuria, flank pain, chest pain or difficulty breathing - Related Data Home Medications Medication Instructions Recorded Confirmed Aspirin EC [Ecotrin] 325 mg PO DAILY 10/15/14 03/02/22 Lovastatin [Mevacor] 40 mg PO HS 10/15/14 03/02/22 Cholecalciferol [Vitamin D3 (25 25 mcg PO DAILY 08/04/21 02/26/22 Mcg = 1000 Iu)] Divalproex ER [Depakote ER] 500 mg PO HS 08/04/21 03/02/22 Donepezil HCl [Aricept] 10 mg PO HS 08/04/21 03/02/22 Magnesium Hydroxide [Milk of 1 dose PO DIRECTED PRN 02/26/22 02/26/22 Magnesia] Multivitamins, Thera [Multivitamin 1 tab PO DAILY 02/26/22 03/02/22 (formulary)] Sennosides [Senna] 1 tab PO DAILY 02/26/22 03/02/22 Previous Rx's Medication Instructions Recorded Sulfamethox-Tmp 800-160Mg [Bactrim 1 tab PO Q12HR 5 Days #10 tab 06/05/22 DS 800-160 mg] Nitrofurantoin Monohyd/M-Cryst 100 mg PO Q12HR #14 cap 06/29/22 [Macrobid] cefUROXime axetiL [Ceftin] 500 mg PO BID 10 Days #20 tab 08/04/22 cefUROXime axetiL [Ceftin] 500 mg PO BID 10 Days #20 tab 09/10/22 Cephalexin [Keflex] 500 mg PO Q6HR #28 cap 10/04/22 Cephalexin [Keflex] 500 mg PO QID #28 cap 11/11/22 Cephalexin [Keflex] 500 mg PO QID 7 Days #28 cap 12/11/22 Sulfamethox-Tmp 800-160Mg [Bactrim 1 each PO Q12HR #14 tab 01/12/23 Ds] Amoxic-Pot Clav 875-125Mg 1 tab PO Q12HR 10 Days #20 tab 01/16/23 [Augmentin 875-125] cefUROXime axetiL [Ceftin] 500 mg PO BID 10 Days #20 tab 02/01/23 Ciprofloxacin HCl [Cipro] 500 mg PO Q12HR #20 tablet 03/08/23 Sulfamethox-Tmp 800-160Mg [Bactrim 1 tab PO Q12HR 7 Days #14 tab 03/27/23 DS 800-160 mg] Sulfamethox-Tmp 800-160Mg [Bactrim 1 tab PO Q12HR 7 Days #14 tab 08/22/23 DS 800-160 mg] cefUROXime axetiL [Ceftin] 500 mg PO BID 10 Days #20 tab 11/25/23 Sulfamethox-Tmp 800-160Mg [Bactrim 1 tab PO Q12HR 7 Days #14 tab 11/30/23 DS 800-160 mg] Sulfamethox-Tmp 800-160Mg [Bactrim 1 tab PO Q12HR 7 Days #14 tab 01/21/24 DS 800-160 mg] Allergies Allergy/AdvReac Type Severity Reaction Status Date / Time No Known Allergies Allergy Verified 01/21/24 01:00 Review of Systems ROS Statement: Those systems with pertinent positive or pertinent negative responses have been documented in the HPI. ROS Other: All systems not noted in ROS Statement are negative. 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 Bilateral foot surgery Past Psychological History: No Psychological Hx Reported Smoking Status: Former smoker Past Alcohol Use History: None Reported Past Drug Use History: None Reported - Past Family History Mother Family Medical History: Unable to Obtain General Exam Limitations: no limitations General appearance: alert, in no apparent distress Head exam: Present: atraumatic, normocephalic Eye exam: Present: normal appearance, EOMI Neck exam: Present: normal inspection Respiratory exam: Absent: respiratory distress Cardiovascular Exam: Present: regular rate GI/Abdominal exam: Present: tenderness (Suprapubic) Neurological exam: Present: alert, oriented X3 Psychiatric exam: Present: normal affect, normal mood Skin exam: Present: warm, dry Course Vital Signs 01/21/24 01/21/24 00:58 02:17 Temperature 97.7 F Pulse Rate 80 69 Respiratory 18 16 Rate Blood Pressure 217/95 146/77 O2 Sat by Pulse 100 99 Oximetry Medical Decision Making - Medical Decision Making Was pt. sent in by a medical professional or institution ([facility] Lenz, [facility] [employer], urgent care, hospital, or fdc...) When possible be specific @ -No Did you speak to anyone other than the patient for history (EMS, parent, family, police, friend...)? What history was obtained from this source @ -No Did you review nursing and triage notes (agree or disagree)? Why? @ -I reviewed and agree with nursing and triage notes Were old charts reviewed (outside hosp., previous admission, EMS record, old EKG, old radiological studies, urgent care reports/EKG's, fdc records)? Report findings @ -No old charts were reviewed Differential Diagnosis (chest pain, altered mental status, abdominal pain women, abdominal pain men, vaginal bleeding, weakness, fever, dyspnea, syncope, headache, dizziness, GI bleed, back pain, seizure, CVA, palpatations, mental health, musculoskeletal)? @ -Differential includes UTI, stone, malignancy, BPH, this is not an all- inclusive list EKG interpreted by me (3pts min.). @ -As above X-rays interpreted by me (1pt min.). @ -None done CT interpreted by me (1pt min.). @ -None done U/S interpreted by me (1pt. min.). @ -None done What testing was considered but not performed or refused? (CT, X-rays, U/S, labs)? Why? @ -None What meds were considered but not given or refused? Why? @ -None Did you discuss the management of the patient with other professionals (professionals i.e. SIMON Lenz, [facility], lab, RT, psych nurse, social service agency director, cone cleaner, teacher, custody officer, special education case manager)? Give summary @ -No Was smoking cessation discussed for >3mins.? @ -No Was critical care preformed (if so, how long)? @ -No Were there social determinants of health that impacted care today? How? (Homelessness, low income, unemployed, alcoholism, drug addiction, transportation, low edu. Level, literacy, decrease access to med. care, [place] [facility], rehab)? @ -No Was there de-escalation of care discussed even if they declined (Discuss DNR or withdrawal of care, Hospice)? DNR status @ -No What co-morbidities impacted this encounter? (DM, HTN, Smoking, COPD, CAD, Cancer, CVA, ARF, Chemo, Hep., AIDS, mental health diagnosis, sleep apnea, morbid obesity)? @ -None Was patient admitted / discharged? Hospital course, mention meds given and route, prescriptions, significant lab abnormalities, going to OR and other pertinent info. @ -83-year-old male presenting with chief complaint of Mohan catheter not draining. History and physical exam conducted. Mohan catheter was replaced and immediately begins draining. Patient reports instant relief. Urine is sent and shows evidence of UTI. He is given 1 g of Rocephin here and send home on Bactrim. Discharged home. Follow-up with PCP. Report back to ER with any new or worsening symptoms. Discussed return parameters and answered all questions. Patient conveyed verbal understanding and agreed to the plan. I discussed this case in detail with my attending Dr. Crow Undiagnosed new problem with uncertain prognosis? @ -No Drug Therapy requiring intensive monitoring for toxicity (Heparin, Nitro, Insulin, Cardizem)? @ -No Were any procedures done? @ -No Diagnosis/symptom? @ -UTI, Mohan catheter malfunction Acute, or Chronic, or Acute on Chronic? @ -Acute Uncomplicated (without systemic symptoms) or Complicated (systemic symptoms)? @ -Uncomplicated Side effects of treatment? @ -No Exacerbation, Progression, or Severe Exacerbation? @ -No Poses a threat to life or bodily function? How? (Chest pain, [place], [place], pneumonia, PE, COPD, DKA, ARF, appy, cholecystitis, CVA, Diverticulitis, Homicidal, Suicidal, threat to staff... and all critical care pts) @ -No - Lab Data Lab Results 01/21/24 Range/Units 01:59 Urine Color Colorless Urine Appearance Cloudy (Clear) Urine pH 7.5 (5.0-8.0) Ur Specific [place] 1.013 (1.001-1.035) Urine Protein 1+ H (Negative) Urine Glucose (UA) Negative (Negative) Urine Ketones Negative (Negative) Urine Blood Trace H (Negative) Urine Nitrite Positive (Negative) Urine Bilirubin Negative (Negative) Urine Urobilinogen <2.0 (<2.0) mg/dL Ur Leukocyte Esterase Large H (Negative) Urine RBC 21 H (0-5) /hpf Urine WBC 81 H (0-5) /hpf Urine WBC Clumps Rare H (None) /hpf Triple Phos Crystals Rare H (None) /hpf Urine Bacteria Few H (None) /hpf Urine Mucus Rare H (None) /hpf Disposition Clinical Impression: Urinary catheter complication, UTI (urinary tract infection) Disposition: HOME SELF-CARE Condition: Good Instructions (If sedation given, give patient instructions): Urinary Tract Infection in Men (ED) Additional Instructions: Follow-up with PCP. Report back to ER with any new or worsening symptoms. Prescriptions: Sulfamethox-Tmp 800-160Mg [Bactrim DS 800-160 mg] 1 tab PO Q12HR 7 Days #14 tab Is patient prescribed a controlled substance at d/c from ED?: No Referrals: [facility],Clinic [Primary Care Provider] - 1-2 days Time of Disposition: 03:15
[2024-01-21 02:53] VITALS: BP 146/77; PULSE 69; RESP 16
[2024-01-21 02:57] LABS: Appearance,Urine Cloudy (Clear); Bacteria,Urine Few /hpf; Bilirubin,Urine Negative (Negative); Blood,Urine Trace (Negative); Color,Urine Colorless; Glucose,Urine (UA) Negative (Negative); Ketones,Urine Negative (Negative); Leukocyte Esterase,Urine Large (Negative); Mucus,Urine Rare /hpf; Nitrite,Urine Positive (Negative); PH, Urine 7.5 (5.0-8.0); Protein,Urine 1+ (Negative); RBC,Urine 21 /hpf (0-5); Specific Gravity,Urine 1.013 (1.001-1.035); Triple Phosphate Crystal,Urine Rare /hpf; Urobilinogen,Urine <2.0 mg/dL (<2.0); WBC,Urine 81 /hpf (0-5)
[2024-01-21] MEDS: cefTRIAXone 1,000 MG VIAL (IM USE) IM STA (03:24)
== END 2024-01-21 03:26 | disposition home or self-care (01) ==
LOC: EC 00:49
DX: T83.098A Other mechanical complication of other urinary catheter, initial encounter (principal); N39.0 Urinary tract infection, site not specified; Z87.891 Personal history of nicotine dependence
CPT/HCPCS: 51798; 81001; 87086; 99284; 96372; 51702; J0696; 87077; 87186

== ENCOUNTER 2024-02-09 05:26 | Emergency (ER) | payer MEDICARE, BC, OTHER ==
[2024-02-09 06:01] VITALS: TEMP 98.1
--- NOTE | 2024-02-09 06:29 | ED ---
General Adult HPI - General Chief complaint: Recheck/Abnormal Lab/Rx Stated complaint: Cath issues Time Seen by Provider: 02/09/24 05:45 Source: patient, RN notes reviewed Mode of arrival: EMS Limitations: no limitations - History of Present Illness Initial comments: 83-year-old male presents emergency department chief complaint of needing Mohan catheter exchange. Patient states that is not draining he states he is retaining his chronic Mohan he denies any fevers or chills denies any flank pain patient states that it was draining yesterday but stopped overnight time. - Related Data Home Medications Medication Instructions Recorded Confirmed Aspirin EC [Ecotrin] 325 mg PO DAILY 10/15/14 03/02/22 Lovastatin [Mevacor] 40 mg PO HS 10/15/14 03/02/22 Cholecalciferol [Vitamin D3 (25 25 mcg PO DAILY 08/04/21 02/26/22 Mcg = 1000 Iu)] Divalproex ER [Depakote ER] 500 mg PO HS 08/04/21 03/02/22 Donepezil HCl [Aricept] 10 mg PO HS 08/04/21 03/02/22 Magnesium Hydroxide [Milk of 1 dose PO DIRECTED PRN 02/26/22 02/26/22 Magnesia] Multivitamins, Thera [Multivitamin 1 tab PO DAILY 02/26/22 03/02/22 (formulary)] Sennosides [Senna] 1 tab PO DAILY 02/26/22 03/02/22 Previous Rx's Medication Instructions Recorded Sulfamethox-Tmp 800-160Mg [Bactrim 1 tab PO Q12HR 5 Days #10 tab 06/05/22 DS 800-160 mg] Nitrofurantoin Monohyd/M-Cryst 100 mg PO Q12HR #14 cap 06/29/22 [Macrobid] cefUROXime axetiL [Ceftin] 500 mg PO BID 10 Days #20 tab 08/04/22 cefUROXime axetiL [Ceftin] 500 mg PO BID 10 Days #20 tab 09/10/22 Cephalexin [Keflex] 500 mg PO Q6HR #28 cap 10/04/22 Cephalexin [Keflex] 500 mg PO QID #28 cap 11/11/22 Cephalexin [Keflex] 500 mg PO QID 7 Days #28 cap 12/11/22 Sulfamethox-Tmp 800-160Mg [Bactrim 1 each PO Q12HR #14 tab 01/12/23 Ds] Amoxic-Pot Clav 875-125Mg 1 tab PO Q12HR 10 Days #20 tab 01/16/23 [Augmentin 875-125] cefUROXime axetiL [Ceftin] 500 mg PO BID 10 Days #20 tab 02/01/23 Ciprofloxacin HCl [Cipro] 500 mg PO Q12HR #20 tablet 03/08/23 Sulfamethox-Tmp 800-160Mg [Bactrim 1 tab PO Q12HR 7 Days #14 tab 03/27/23 DS 800-160 mg] Sulfamethox-Tmp 800-160Mg [Bactrim 1 tab PO Q12HR 7 Days #14 tab 08/22/23 DS 800-160 mg] cefUROXime axetiL [Ceftin] 500 mg PO BID 10 Days #20 tab 11/25/23 Sulfamethox-Tmp 800-160Mg [Bactrim 1 tab PO Q12HR 7 Days #14 tab 11/30/23 DS 800-160 mg] Sulfamethox-Tmp 800-160Mg [Bactrim 1 tab PO Q12HR 7 Days #14 tab 01/21/24 DS 800-160 mg] Sulfamethox-Tmp 800-160Mg [Bactrim 1 each PO Q12HR #20 tab 02/09/24 Ds] Allergies Allergy/AdvReac Type Severity Reaction Status Date / Time No Known Allergies Allergy Verified 02/09/24 05:31 Review of Systems ROS Statement: Those systems with pertinent positive or pertinent negative responses have been documented in the HPI. ROS Other: All systems not noted in ROS Statement are negative. Past Medical History Past Medical History: Hyperlipidemia, Prostate Disorder Additional Past Medical History / Comment(s): covid fall 2020,chronic moahn needs to be 19 [place] [facility] Joseph History of Any Multi-Drug Resistant Organisms: MRSA Date of last positivie culture/infection: 03/27/23 MDRO Source:: Urine Additional Past Surgical History / Comment(s): KIDNEY STONES. Bilateral foot surgery Past Psychological History: No Psychological Hx Reported Smoking Status: Former smoker Past Alcohol Use History: None Reported Past Drug Use History: None Reported - Past Family History Mother Family Medical History: Unable to Obtain General Exam Limitations: no limitations General appearance: alert, in no apparent distress Head exam: Present: atraumatic, normocephalic, normal inspection Respiratory exam: Present: normal lung sounds bilaterally. Absent: respiratory distress, wheezes, rales, rhonchi, stridor Cardiovascular Exam: Present: regular rate, normal rhythm, normal heart sounds. Absent: systolic murmur, diastolic murmur, rubs, gallop, clicks GI/Abdominal exam: Present: soft, distended, tenderness, normal bowel sounds. Absent: guarding, rebound, rigid Course Vital Signs 02/09/24 02/09/24 02/09/24 05:31 05:49 08:17 Temperature 97 F L 98.1 F 98.1 F Pulse Rate 78 77 Respiratory 16 18 Rate Blood Pressure 209/104 171/89 O2 Sat by Pulse 100 100 Oximetry Medical Decision Making - Medical Decision Making Was pt. sent in by a medical professional or institution (SIMON Lenz, ORACLE CONSULTANT, urgent care, hospital, or long-term...) When possible be specific @ -No Did you speak to anyone other than the patient for history (EMS, parent, family, police, friend...)? What history was obtained from this source @ -No Did you review nursing and triage notes (agree or disagree)? Why? @ -I reviewed and agree with nursing and triage notes Were old charts reviewed (outside hosp., previous admission, EMS record, old EKG, old radiological studies, urgent care reports/EKG's, long-term records)? Report findings @ -No old charts were reviewed Differential Diagnosis (chest pain, altered mental status, abdominal pain women, abdominal pain men, vaginal bleeding, weakness, fever, dyspnea, syncope, headache, dizziness, GI bleed, back pain, seizure, CVA, palpatations, mental health, musculoskeletal)? @ -Mohan catheter complication, UTI EKG interpreted by me (3pts min.). @ -None X-rays interpreted by me (1pt min.). @ -None done CT interpreted by me (1pt min.). @ -None done U/S interpreted by me (1pt. min.). @ -None done What testing was considered but not performed or refused? (CT, X-rays, U/S, labs)? Why? @ -None What meds were considered but not given or refused? Why? @ -None Did you discuss the management of the patient with other professionals (professionals i.e. , PA, ORACLE CONSULTANT, lab, RT, psych nurse, social media developer, outside medical sales representative, teacher, motorcycle police officer, case management manager)? Give summary @ -No Was smoking cessation discussed for >3mins.? @ -No Was critical care preformed (if so, how long)? @ -No Were there social determinants of health that impacted care today? How? (Homelessness, low income, unemployed, alcoholism, drug addiction, transportation, low edu. Level, literacy, decrease access to med. care, [place] [facility], rehab)? @ -No Was there de-escalation of care discussed even if they declined (Discuss DNR or withdrawal of care, Hospice)? DNR status @ -No What co-morbidities impacted this encounter? (DM, HTN, Smoking, COPD, CAD, Cancer, CVA, ARF, Chemo, Hep., AIDS, mental health diagnosis, sleep apnea, morbid obesity)? @ -None Was patient admitted / discharged? Hospital course, mention meds given and route, prescriptions, significant lab abnormalities, going to OR and other pertinent info. @ -[Catheter is exchanged by RN with no complications patient has evidence UTI urine culture was obtained Undiagnosed new problem with uncertain prognosis? @ -No Drug Therapy requiring intensive monitoring for toxicity (Heparin, Nitro, Insulin, Cardizem)? @ -No Were any procedures done? @ -No Diagnosis/symptom? @ -Mohan catheter complication, UTI Acute, or Chronic, or Acute on Chronic? @ -Acute Uncomplicated (without systemic symptoms) or Complicated (systemic symptoms)? @ -Uncomplicated Side effects of treatment? @ -No Exacerbation, Progression, or Severe Exacerbation? @ -No Poses a threat to life or bodily function? How? (Chest pain, [place], [place], pneumonia, PE, COPD, DKA, ARF, appy, cholecystitis, CVA, Diverticulitis, Homicidal, Suicidal, threat to staff... and all critical care pts) @ -No - Lab Data Lab Results 02/09/24 Range/Units 06:46 Urine Color Colorless Urine Appearance Cloudy (Clear) Urine pH 8.0 (5.0-8.0) Ur Specific [place] 1.015 (1.001-1.035) Urine Protein 1+ H (Negative) Urine Glucose (UA) Negative (Negative) Urine Ketones Negative (Negative) Urine Blood Small H (Negative) Urine Nitrite Positive (Negative) Urine Bilirubin Negative (Negative) Urine Urobilinogen <2.0 (<2.0) mg/dL Ur Leukocyte Esterase Large H (Negative) Urine RBC 33 H (0-5) /hpf Urine WBC 177 H (0-5) /hpf Triple Phos Crystals Rare H (None) /hpf Urine Bacteria Moderate H (None) /hpf Urine Mucus Rare H (None) /hpf Disposition Clinical Impression: UTI (urinary tract infection), Malfunction of Mohan catheter Disposition: HOME SELF-CARE Condition: Stable Instructions (If sedation given, give patient instructions): Urinary Tract Infection in Men (ED) Additional Instructions: Please return to the Emergency Department if symptoms worsen or any other concerns. Prescriptions: Sulfamethox-Tmp 800-160Mg [Bactrim Ds] 1 each PO Q12HR #20 tab Is patient prescribed a controlled substance at d/c from ED?: No Referrals: [facility],Clinic [Primary Care Provider] - 1-2 days Time of Disposition: 07:58
[2024-02-09 07:37] LABS: Appearance,Urine Cloudy (Clear); Bacteria,Urine Moderate /hpf; Bilirubin,Urine Negative (Negative); Blood,Urine Small (Negative); Color,Urine Colorless; Glucose,Urine (UA) Negative (Negative); Ketones,Urine Negative (Negative); Leukocyte Esterase,Urine Large (Negative); Mucus,Urine Rare /hpf; Nitrite,Urine Positive (Negative); Protein,Urine 1+ (Negative); RBC,Urine 33 /hpf (0-5); Specific Gravity,Urine 1.015 (1.001-1.035); Triple Phosphate Crystal,Urine Rare /hpf; Urobilinogen,Urine <2.0 mg/dL (<2.0); WBC,Urine 177 /hpf (0-5)
[2024-02-09 08:19] VITALS: BP 171/89; PULSE 77; RESP 18
== END 2024-02-09 08:20 | disposition home or self-care (01) ==
LOC: EC 05:26
DX: T83.091A Other mechanical complication of indwelling urethral catheter, initial encounter (principal); N39.0 Urinary tract infection, site not specified; Z87.891 Personal history of nicotine dependence
CPT/HCPCS: 81001; 87086; 99283

== ENCOUNTER 2024-03-21 08:51 | Emergency (ER) | payer MEDICARE, BC ==
--- NOTE | 2024-03-21 09:33 | ED ---
General Adult HPI - General Chief complaint: Urogenital Stated complaint: Cath Issues Time Seen by Provider: 03/21/24 08:52 Source: patient, RN notes reviewed, old records reviewed Mode of arrival: EMS Limitations: no limitations - History of Present Illness Initial comments: 83-year-old male with chronic indwelling Mohan catheter presents with occluded catheter. No fever. No vomiting. No pain complaints. Patient presenting for exchange of Mohan catheter. - Related Data Home Medications Medication Instructions Recorded Confirmed Aspirin EC [Ecotrin] 325 mg PO DAILY 10/15/14 03/02/22 Lovastatin [Mevacor] 40 mg PO HS 10/15/14 03/02/22 Cholecalciferol [Vitamin D3 (25 25 mcg PO DAILY 08/04/21 02/26/22 Mcg = 1000 Iu)] Divalproex ER [Depakote ER] 500 mg PO HS 08/04/21 03/02/22 Donepezil HCl [Aricept] 10 mg PO HS 08/04/21 03/02/22 Magnesium Hydroxide [Milk of 1 dose PO DIRECTED PRN 02/26/22 02/26/22 Magnesia] Multivitamins, Thera [Multivitamin 1 tab PO DAILY 02/26/22 03/02/22 (formulary)] Sennosides [Senna] 1 tab PO DAILY 02/26/22 03/02/22 Previous Rx's Medication Instructions Recorded Sulfamethox-Tmp 800-160Mg [Bactrim 1 tab PO Q12HR 5 Days #10 tab 06/05/22 DS 800-160 mg] Nitrofurantoin Monohyd/M-Cryst 100 mg PO Q12HR #14 cap 06/29/22 [Macrobid] cefUROXime axetiL [Ceftin] 500 mg PO BID 10 Days #20 tab 08/04/22 cefUROXime axetiL [Ceftin] 500 mg PO BID 10 Days #20 tab 09/10/22 Cephalexin [Keflex] 500 mg PO Q6HR #28 cap 10/04/22 Cephalexin [Keflex] 500 mg PO QID #28 cap 11/11/22 Cephalexin [Keflex] 500 mg PO QID 7 Days #28 cap 12/11/22 Sulfamethox-Tmp 800-160Mg [Bactrim 1 each PO Q12HR #14 tab 01/12/23 Ds] Amoxic-Pot Clav 875-125Mg 1 tab PO Q12HR 10 Days #20 tab 01/16/23 [Augmentin 875-125] cefUROXime axetiL [Ceftin] 500 mg PO BID 10 Days #20 tab 02/01/23 Ciprofloxacin HCl [Cipro] 500 mg PO Q12HR #20 tablet 03/08/23 Sulfamethox-Tmp 800-160Mg [Bactrim 1 tab PO Q12HR 7 Days #14 tab 03/27/23 DS 800-160 mg] Sulfamethox-Tmp 800-160Mg [Bactrim 1 tab PO Q12HR 7 Days #14 tab 08/22/23 DS 800-160 mg] cefUROXime axetiL [Ceftin] 500 mg PO BID 10 Days #20 tab 11/25/23 Sulfamethox-Tmp 800-160Mg [Bactrim 1 tab PO Q12HR 7 Days #14 tab 11/30/23 DS 800-160 mg] Sulfamethox-Tmp 800-160Mg [Bactrim 1 tab PO Q12HR 7 Days #14 tab 01/21/24 DS 800-160 mg] Sulfamethox-Tmp 800-160Mg [Bactrim 1 each PO Q12HR #20 tab 02/09/24 Ds] Allergies Allergy/AdvReac Type Severity Reaction Status Date / Time No Known Allergies Allergy Verified 03/21/24 09:07 Review of Systems ROS Statement: Those systems with pertinent positive or pertinent negative responses have been documented in the HPI. ROS Other: All systems not noted in ROS Statement are negative. Past Medical History Past Medical History: Hyperlipidemia, Prostate Disorder Additional Past Medical History / Comment(s): covid fall 2020,chronic mohan needs to be 19 [place] [facility] Joseph History of Any Multi-Drug Resistant Organisms: MRSA Date of last positivie culture/infection: 03/27/23 MDRO Source:: Urine Additional Past Surgical History / Comment(s): KIDNEY STONES. Bilateral foot surgery Past Psychological History: No Psychological Hx Reported Smoking Status: Former smoker Past Alcohol Use History: None Reported Past Drug Use History: None Reported - Past Family History Mother Family Medical History: Unable to Obtain General Exam Limitations: no limitations General appearance: alert, in no apparent distress Head exam: Present: atraumatic, normocephalic Eye exam: Present: normal appearance, PERRL ENT exam: Present: normal exam Neck exam: Present: normal inspection. Absent: tenderness, meningismus Respiratory exam: Present: normal lung sounds bilaterally. Absent: respiratory distress Cardiovascular Exam: Present: normal rhythm, bradycardia GI/Abdominal exam: Present: soft. Absent: distended, tenderness, guarding Extremities exam: Present: normal inspection, normal capillary refill Neurological exam: Present: alert, CN II-XII intact. Absent: motor sensory deficit Psychiatric exam: Present: normal affect, normal mood Skin exam: Present: warm, dry Course Vital Signs 03/21/24 08:58 Temperature 97.7 F Pulse Rate 44 L Respiratory 16 Rate Blood Pressure 165/104 O2 Sat by Pulse 99 Oximetry Medical Decision Making - Medical Decision Making Was pt. sent in by a medical professional or institution (SIMON Lenz, DRY CLEANING TEACHER, urgent care, hospital, or [facility]...) When possible be specific @ -No Did you speak to anyone other than the patient for history (EMS, parent, family, police, friend...)? What history was obtained from this source @ -No Did you review nursing and triage notes (agree or disagree)? Why? @ -I reviewed and agree with nursing and triage notes Were old charts reviewed (outside hosp., previous admission, EMS record, old EKG, old radiological studies, urgent care reports/EKG's, [facility] records)? Report findings @ -No old charts were reviewed Differential Diagnosis included, malfunctioning Mohan catheter EKG interpreted by me (3pts min.). @ -As above X-rays interpreted by me (1pt min.). @ -None done CT interpreted by me (1pt min.). @ -None done U/S interpreted by me (1pt. min.). @ -None done What testing was considered but not performed or refused? (CT, X-rays, U/S, labs)? Why? @ -None What meds were considered but not given or refused? Why? @ -None Did you discuss the management of the patient with other professionals (professionals i.e. SIMON Lenz, DRY CLEANING TEACHER, lab, RT, psych nurse, social science instructor, field associate, teacher, protocol officer, casework manager)? Give summary @ -No Was smoking cessation discussed for >3mins.? @ -No Was critical care preformed (if so, how long)? @ -No Were there social determinants of health that impacted care today? How? (Homelessness, low income, unemployed, alcoholism, drug addiction, transportation, low edu. Level, literacy, decrease access to med. care, senior living, rehab)? @ -No Was there de-escalation of care discussed even if they declined (Discuss DNR or withdrawal of care, Hospice)? DNR status @ -No What co-morbidities impacted this encounter? (DM, HTN, Smoking, COPD, CAD, Cancer, CVA, ARF, Chemo, Hep., AIDS, mental health diagnosis, sleep apnea, morbid obesity)? @ -None Was patient admitted / discharged? Hospital course, mention meds given and route, prescriptions, significant lab abnormalities, going to OR and other pertinent info. @ -Mohan catheter exchanged in the emergency department without issue. Patient stable for discharge at this time. Undiagnosed new problem with uncertain prognosis? @ -No Drug Therapy requiring intensive monitoring for toxicity (Heparin, Nitro, Insulin, Cardizem)? @ -No Were any procedures done? @ -No Diagnosis/symptom? @ -Occluded Mohan catheter Acute, or Chronic, or Acute on Chronic? @Acute on chronic Uncomplicated (without systemic symptoms) or Complicated (systemic symptoms)? @ -Default Side effects of treatment? @ -No Exacerbation, Progression, or Severe Exacerbation? @ -No Poses a threat to life or bodily function? How? (Chest pain, [place], [place], pneumonia, PE, COPD, DKA, ARF, appy, cholecystitis, CVA, Diverticulitis, Homicidal, Suicidal, threat to staff... and all critical care pts) @ -No Disposition Clinical Impression: Retention of urine due to occlusion of Mohan catheter Disposition: HOME SELF-CARE Condition: Fair Instructions (If sedation given, give patient instructions): Mohan Catheter Placement and Care (ED) Is patient prescribed a controlled substance at d/c from ED?: No Referrals: [facility],Clinic [Primary Care Provider] - 1-2 days Time of Disposition: 09:45
[2024-03-21 10:34] VITALS: TEMP 97.6
[2024-03-21 11:25] VITALS: BP 137/77; PULSE 77; RESP 18
== END 2024-03-21 11:25 | disposition home or self-care (01) ==
LOC: EC 08:51
DX: R33.9 Retention of urine, unspecified (principal); T83.098A Other mechanical complication of other urinary catheter, initial encounter; Z87.891 Personal history of nicotine dependence; Z86.16 Personal history of COVID-19
CPT/HCPCS: 51702; 99283

== ENCOUNTER 2024-04-03 16:35 | Emergency (ER) | payer MEDICARE, BC ==
[2024-04-03] MEDS: SODIUM CHLORIDE 0.9% 1,000 ML IV STA (17:23)
[2024-04-03 17:29] LABS: Basophils % (A) 0 %; Eosinophils # (A) 0.1 k/uL (0-0.7); Eosinophils % (A) 1 %; HCT 35.4 % (39.0-53.0); HGB 11.6 gm/dL (13.0-17.5); Lymphocytes # (A) 1.4 k/uL (1.0-4.8); Lymphocytes % (A) 12 %; MCH 31.2 pg (25.0-35.0); MCHC 32.7 g/dL (31.0-37.0); MCV 95.5 fL (80.0-100.0); Mean Platelet Volume 8.5; Monocytes # (A) 0.9 k/uL (0-1.0); Monocytes % (A) 8 %; Neutrophils # (A) 9.2 k/uL (1.3-7.7); Neutrophils % (A) 78 %; Platelet Count 251 k/uL (150-450); RBC 3.71 m/uL (4.30-5.90); RDW 13.2 % (11.5-15.5); WBC 11.8 k/uL (3.8-10.6)
[2024-04-03 17:32] VITALS: RESP 16
[2024-04-03 17:41] LABS: ALT 12 U/L (4-49); AST 21 U/L (17-59); African American GFR (CKD) 83 (>60 ml/min/1.73 sqM); Alkaline Phosphatase 52 U/L (38-126); Anion Gap 6 mmol/L; Blood Urea Nitrogen 33 mg/dL (9-20); Calcium 9.1 mg/dL (8.4-10.2); Carbon Dioxide 23 mmol/L (22-30); Chloride 109 mmol/L (98-107); Glucose 145 mg/dL (74-99); Magnesium 2.2 mg/dL (1.6-2.3); Non-African American GFR(CKD) 72 (>60 ml/min/1.73 sqM); Potassium 4.2 mmol/L (3.5-5.1); Sodium 138 mmol/L (137-145); Total Bilirubin 0.5 mg/dL (0.2-1.3); Total Protein 6.4 g/dL (6.3-8.2)
--- NOTE | 2024-04-03 17:49 | ED ---
General Adult HPI - General Chief complaint: Abdominal Pain Stated complaint: NV Time Seen by Provider: 04/03/24 16:40 Source: patient, EMS, RN notes reviewed, old records reviewed Mode of arrival: EMS Limitations: no limitations - History of Present Illness Initial comments: This is an 83-year-old male who presents to the emergency department complaining that he did not feel well tonight after he ate dinner and vomited. However he told the nurse initially he did not feel well last night and vomited but he insists it was tonight an hour prior to arrival. Patient states he got Zofran in the ambulance and feels absolutely fine at this time. Patient denies any nausea at this time. Patient Nuys any diarrhea. Patient Nuys any abdominal pain at any time. Patient denies any chest pain difficulty breathing or shortness of breath. - Related Data Home Medications Medication Instructions Recorded Confirmed Cholecalciferol [Vitamin D3 (25 25 mcg PO DAILY 08/04/21 04/03/24 Mcg = 1000 Iu)] Divalproex ER [Depakote ER] 500 mg PO HS 08/04/21 04/03/24 Donepezil HCl [Aricept] 10 mg PO HS 08/04/21 04/03/24 Multivitamins, Thera [Multivitamin 1 tab PO DAILY 02/26/22 04/03/24 (formulary)] Rosuvastatin Calcium [Crestor] 20 mg PO DAILY 04/03/24 04/03/24 Sodium Chloride Irrig Solution 1 applic IRRIGATION DIRECTED PRN 04/03/24 04/03/24 [Sodium Chloride Irrig] Allergies Allergy/AdvReac Type Severity Reaction Status Date / Time atorvastatin [From Lipitor] Allergy Unknown Verified 04/03/24 19:16 Review of Systems ROS Statement: Those systems with pertinent positive or pertinent negative responses have been documented in the HPI. ROS Other: All systems not noted in ROS Statement are negative. Past Medical History Past Medical History: Hyperlipidemia, Prostate Disorder Additional Past Medical History / Comment(s): covid fall 2020,chronic mohan needs to be 19 [place] [address] [place] physician Dr. Joseph History of Any Multi-Drug Resistant Organisms: MRSA Date of last positivie culture/infection: 03/27/23 MDRO Source:: Urine Additional Past Surgical History / Comment(s): KIDNEY STONES. Bilateral foot surgery Past Psychological History: No Psychological Hx Reported Smoking Status: Former smoker Past Alcohol Use History: None Reported Past Drug Use History: None Reported - Past Family History Mother Family Medical History: Unable to Obtain General Exam - General Exam Comments Initial Comments: GENERAL: Patient is well-developed and well-nourished. Patient is nontoxic and well- hydrated and is in no acute distress. ENT: Neck is soft and supple. No significant lymphadenopathy is noted. Oropharynx is clear. Moist mucous membranes. Neck has full range of motion without eliciting any pain. EYES: The sclera were anicteric and conjunctiva were pink and moist. Extraocular movements were intact and pupils were equal round and reactive to light. Eyelids were unremarkable. PULMONARY: Unlabored respirations. Good breath sounds bilaterally. No audible rales rhonchi or wheezing was noted. CARDIOVASCULAR: There is a regular rate and rhythm without any murmurs gallops or rubs. ABDOMEN: Soft and nontender with normal bowel sounds. SKIN: Skin is clear with no lesions or rashes and otherwise unremarkable. NEUROLOGIC: Patient is alert and oriented x3. Cranial nerves II through XII are grossly intact. Motor and sensory are also intact. Normal speech, volume and content. Symmetrical smile. MUSCULOSKELETAL: Normal extremities with adequate strength and full range of motion. LYMPHATICS: No significant lymphadenopathy is noted PSYCHIATRIC: Normal psychiatric evaluation. Limitations: no limitations Course Vital Signs 04/03/24 04/03/24 04/03/24 16:39 18:01 18:54 Temperature 98.0 F 98.6 F 97.9 F Pulse Rate 59 L 60 61 Respiratory 16 16 16 Rate Blood Pressure 132/71 138/59 138/59 O2 Sat by Pulse 100 97 100 Oximetry Medical Decision Making - Medical Decision Making Please interpreted by myself read EKG shows sinus bradycardia 52 bpm [place] interval is 190 QRS is 101 QT interval is 441 QTc is 422. Patient's EKG shows no ST segment elevation or depression Was pt. sent in by a medical professional or institution (, PA, DIRECTOR OF ADVERTISING SALES, urgent care, hospital, or shelter...) When possible be specific @ -No Did you speak to anyone other than the patient for history (EMS, parent, family, police, friend...)? What history was obtained from this source @ -No Did you review nursing and triage notes (agree or disagree)? Why? @ -I reviewed and agree with nursing and triage notes Were old charts reviewed (outside hosp., previous admission, EMS record, old EKG, old radiological studies, urgent care reports/EKG's, shelter records)? Report findings @ -No old charts were reviewed Differential Diagnosis? @ -Gastritis, gastroenteritis, viral syndrome, this is not an all-inclusive list EKG interpreted by me (3pts min.). @ -As above X-rays interpreted by me (1pt min.). @ -None done CT interpreted by me (1pt min.). @ -None done U/S interpreted by me (1pt. min.). @ -None done What testing was considered but not performed or refused? (CT, X-rays, U/S, labs)? Why? @ -None What meds were considered but not given or refused? Why? @ -None Did you discuss the management of the patient with other professionals (professionals i.e. , PA, DIRECTOR OF ADVERTISING SALES, lab, RT, psych nurse, certified social workers in health care, training officer, teacher, senior compliance officer, case picker)? Give summary @ -No Was smoking cessation discussed for >3mins.? @ -No Was critical care preformed (if so, how long)? @ -No Were there social determinants of health that impacted care today? How? (Homelessness, low income, unemployed, alcoholism, drug addiction, transportation, low edu. Level, literacy, decrease access to med. care, [facility], rehab)? @ -No Was there de-escalation of care discussed even if they declined (Discuss DNR or withdrawal of care, Hospice)? DNR status @ -No What co-morbidities impacted this encounter? (DM, HTN, Smoking, COPD, CAD, Cancer, CVA, ARF, Chemo, Hep., AIDS, mental health diagnosis, sleep apnea, morbid obesity)? @ -None Was patient admitted / discharged? Hospital course, mention meds given and route, prescriptions, significant lab abnormalities, going to OR and other pertinent info. @ -Patient was given 2 L of fluid and had Zofran by EMS on the way in. Patient had no further symptoms in the emergency department I went back in and reevaluated the patient he was feeling much better and wanted to be discharged home at this time. Patient denies any nausea patient denies any pain. Patient Nuys any complaints at all Undiagnosed new problem with uncertain prognosis? @ -No Drug Therapy requiring intensive monitoring for toxicity (Heparin, Nitro, Insu sami, Cardizem)? @ -No Were any procedures done? @ -No Diagnosis/symptom? @ -Acute vomiting Acute, or Chronic, or Acute on Chronic? @ -Acute Uncomplicated (without systemic symptoms) or Complicated (systemic symptoms)? @ -Complicated Side effects of treatment? @ -No Exacerbation, Progression, or Severe Exacerbation? @ -No Poses a threat to life or bodily function? How? (Chest pain, [place], [place], pneumonia, PE, COPD, DKA, ARF, appy, cholecystitis, CVA, Diverticulitis, Homicidal, Suicidal, threat to staff... and all critical care pts) @ -No - Lab Data Result diagrams: 04/03/24 17:19 04/03/24 17:19 Lab Results 04/03/24 04/03/24 04/03/24 Range/Units 17:19 17:19 17:19 WBC 11.8 H (3.8-10.6) k/uL RBC 3.71 L (4.30-5.90) m/uL Hgb 11.6 L (13.0-17.5) gm/dL Hct 35.4 L (39.0-53.0) % MCV 95.5 (80.0-100.0) fL MCH 31.2 (25.0-35.0) pg MCHC 32.7 (31.0-37.0) g/dL RDW 13.2 (11.5-15.5) % Plt Count 251 (150-450) k/uL MPV 8.5 Neutrophils % 78 % Lymphocytes % 12 % Monocytes % 8 % Eosinophils % 1 % Basophils % 0 % Neutrophils # 9.2 H (1.3-7.7) k/uL Lymphocytes # 1.4 (1.0-4.8) k/uL Monocytes # 0.9 (0-1.0) k/uL Eosinophils # 0.1 (0-0.7) k/uL Basophils # 0.0 (0-0.2) k/uL Sodium 138 (137-145) mmol/L Potassium 4.2 (3.5-5.1) mmol/L Chloride 109 H (98-107) mmol/L Carbon Dioxide 23 (22-30) mmol/L Anion Gap 6 mmol/L BUN 33 H (9-20) mg/dL Creatinine 0.98 (0.66-1.25) mg/dL Est GFR (CKD-EPI)AfAm 83 (>60 ml/min/1.73 sqM) Est GFR (CKD-EPI)NonAf 72 (>60 ml/min/1.73 sqM) Glucose 145 H (74-99) mg/dL Lactic Ac Sepsis Rflx Plasma Lactic Acid T[place]anda (0.7-2.0) mmol/L Calcium 9.1 (8.4-10.2) mg/dL Magnesium 2.2 (1.6-2.3) mg/dL Total Bilirubin 0.5 (0.2-1.3) mg/dL AST 21 (17-59) U/L ALT 12 (4-49) U/L Alkaline Phosphatase 52 (38-126) U/L Total Protein 6.4 (6.3-8.2) g/dL Albumin 4.0 (3.5-5.0) g/dL Urine Color Yellow Urine Appearance Turbid (Clear) Urine pH 8.5 H (5.0-8.0) Ur Specific [place] 1.028 (1.001-1.035) Urine Protein 4+ H (Negative) Urine Glucose (UA) Negative (Negative) Urine Ketones 1+ H (Negative) Urine Blood Negative (Negative) Urine Nitrite Positive (Negative) Urine Bilirubin Negative (Negative) Urine Urobilinogen <2.0 (<2.0) mg/dL Ur Leukocyte Esterase Large H (Negative) Urine RBC 14 H (0-5) /hpf Urine WBC 14 H (0-5) /hpf Ur Squamous Epith Cells 1 (0-4) /hpf Triple Phos Crystals Occasional H (None) /hpf Urine Bacteria Few H (None) /hpf Urine Mucus Moderate H (None) /hpf 04/03/24 04/03/24 04/03/24 Range/Units 17:19 17:50 19:59 WBC (3.8-10.6) k/uL RBC (4.30-5.90) m/uL Hgb (13.0-17.5) gm/dL Hct (39.0-53.0) % MCV (80.0-100.0) fL MCH (25.0-35.0) pg MCHC (31.0-37.0) g/dL RDW (11.5-15.5) % Plt Count (150-450) k/uL MPV Neutrophils % % Lymphocytes % % Monocytes % % Eosinophils % % Basophils % % Neutrophils # (1.3-7.7) k/uL Lymphocytes # (1.0-4.8) k/uL Monocytes # (0-1.0) k/uL Eosinophils # (0-0.7) k/uL Basophils # (0-0.2) k/uL Sodium (137-145) mmol/L Potassium (3.5-5.1) mmol/L Chloride (98-107) mmol/L Carbon Dioxide (22-30) mmol/L Anion Gap mmol/L BUN (9-20) mg/dL Creatinine (0.66-1.25) mg/dL Est GFR (CKD-EPI)AfAm (>60 ml/min/1.73 sqM) Est GFR (CKD-EPI)NonAf (>60 ml/min/1.73 sqM) Glucose (74-99) mg/dL Lactic Ac Sepsis Rflx Y Plasma Lactic Acid Tawanda 3.1 H* 2.0 (0.7-2.0) mmol/L Calcium (8.4-10.2) mg/dL Magnesium (1.6-2.3) mg/dL Total Bilirubin (0.2-1.3) mg/dL AST (17-59) U/L ALT (4-49) U/L Alkaline Phosphatase (38-126) U/L Total Protein (6.3-8.2) g/dL Albumin (3.5-5.0) g/dL Urine Color Urine Appearance (Clear) Urine pH (5.0-8.0) Ur Specific [place] (1.001-1.035) Urine Protein (Negative) Urine Glucose (UA) (Negative) Urine Ketones (Negative) Urine Blood (Negative) Urine Nitrite (Negative) Urine Bilirubin (Negative) Urine Urobilinogen (<2.0) mg/dL Ur Leukocyte Esterase (Negative) Urine RBC (0-5) /hpf Urine WBC (0-5) /hpf Ur Squamous Epith Cells (0-4) /hpf Triple Phos Crystals (None) /hpf Urine Bacteria (None) /hpf Urine Mucus (None) /hpf Disposition Clinical Impression: Acute vomiting Disposition: HOME SELF-CARE Condition: Good Instructions (If sedation given, give patient instructions): Acute Nausea and Vomiting (ED) Is patient prescribed a controlled substance at d/c from ED?: No Referrals: [facility],Clinic [Primary Care Provider] - 1-2 days Time of Disposition: 20:51
--- NOTE | 2024-04-03 17:59 | XR ---
EXAMINATION TYPE: XR chest 2V DATE OF EXAM: 04/03/2024 COMPARISON: 12/17/2022 HISTORY: 83-year-old male with weakness and coffee-ground emesis TECHNIQUE: AP and lateral views FINDINGS: Heart normal size. Aorta and pulmonary vasculature within normal limits. Some strandy atelectasis in the lower lungs. No consolidation or pleural effusion. Mild hyperinflation. IMPRESSION: COPD. Some strandy atelectasis or scarring in the lower lungs. Otherwise, no definite acute process.
[2024-04-03 18:08] LABS: Appearance,Urine Turbid (Clear); Bacteria,Urine Few /hpf; Bilirubin,Urine Negative (Negative); Blood,Urine Negative (Negative); Color,Urine Yellow; Glucose,Urine (UA) Negative (Negative); Ketones,Urine 1+ (Negative); Leukocyte Esterase,Urine Large (Negative); Mucus,Urine Moderate /hpf; Nitrite,Urine Positive (Negative); PH, Urine 8.5 (5.0-8.0); Protein,Urine 4+ (Negative); RBC,Urine 14 /hpf (0-5); Specific Gravity,Urine 1.028 (1.001-1.035); Squamous Epithelial Cell,Urine 1 /hpf (0-4); Triple Phosphate Crystal,Urine Occasional /hpf; Urobilinogen,Urine <2.0 mg/dL (<2.0); WBC,Urine 14 /hpf (0-5)
[2024-04-03] MEDS: SODIUM CHLORIDE 0.9% 1,000 ML IV ONE (18:52)
[2024-04-03 18:57] VITALS: PULSE 61
[2024-04-03 21:13] VITALS: BP 110/63; TEMP 98.1
== END 2024-04-03 22:18 | disposition home or self-care (01) ==
LOC: EC 16:35
DX: R11.2 Nausea with vomiting, unspecified (principal); R00.1 Bradycardia, unspecified; Z88.8 Allergy status to other drugs, medicaments and biological substances; Z87.891 Personal history of nicotine dependence; Z86.16 Personal history of COVID-19
CPT/HCPCS: 36415; 71046; 80053; 81001; 83605; 83735; 85025; 93005; 96360; 96361; 99284

== ENCOUNTER 2024-04-18 09:19 | Emergency (ER) | payer MEDICARE, BC ==
--- NOTE | 2024-04-18 09:57 | ED ---
General Adult HPI - General Chief complaint: Urogenital Stated complaint: cath malfunction Time Seen by Provider: 04/18/24 09:21 Source: patient, EMS, RN notes reviewed Mode of arrival: EMS Limitations: no limitations - History of Present Illness Initial comments: 83-year-old male presents emergency department chief complaint of Mohan catheter issue. Patient states his Mohan catheter is not draining and states he feels pressure in his abdomen typical when it is blocked. Patient states unsure when it was/exchanged denies any fevers or chills no nausea vomiting no other complaints. Patient has a chronic indwelling Mohan catheter. - Related Data Home Medications Medication Instructions Recorded Confirmed Cholecalciferol [Vitamin D3 (25 25 mcg PO DAILY 08/04/21 04/03/24 Mcg = 1000 Iu)] Divalproex ER [Depakote ER] 500 mg PO HS 08/04/21 04/03/24 Donepezil HCl [Aricept] 10 mg PO HS 08/04/21 04/03/24 Multivitamins, Thera [Multivitamin 1 tab PO DAILY 02/26/22 04/03/24 (formulary)] Rosuvastatin Calcium [Crestor] 20 mg PO DAILY 04/03/24 04/03/24 Sodium Chloride Irrig Solution 1 applic IRRIGATION DIRECTED PRN 04/03/24 04/03/24 [Sodium Chloride Irrig] Previous Rx's Medication Instructions Recorded Cephalexin [Keflex] 500 mg PO Q8HR #21 cap 04/18/24 Allergies Allergy/AdvReac Type Severity Reaction Status Date / Time atorvastatin [From Lipitor] Allergy Unknown Verified 04/18/24 09:25 Review of Systems ROS Statement: Those systems with pertinent positive or pertinent negative responses have been documented in the HPI. ROS Other: All systems not noted in ROS Statement are negative. Past Medical History Past Medical History: Hyperlipidemia, Prostate Disorder Additional Past Medical History / Comment(s): covid fall 2020,chronic mohan needs to be 19 [place] [address] [place] physician Dr. Joseph History of Any Multi-Drug Resistant Organisms: MRSA Date of last positivie culture/infection: 03/27/23 MDRO Source:: Urine Additional Past Surgical History / Comment(s): KIDNEY STONES. Bilateral foot surgery Past Psychological History: No Psychological Hx Reported Smoking Status: Former smoker Past Alcohol Use History: None Reported Past Drug Use History: None Reported - Past Family History Mother Family Medical History: Unable to Obtain General Exam Limitations: no limitations General appearance: alert, in no apparent distress Head exam: Present: atraumatic, normocephalic, normal inspection Eye exam: Present: normal appearance, PERRL, EOMI. Absent: scleral icterus, conjunctival injection, periorbital swelling Neck exam: Present: normal inspection. Absent: tenderness, meningismus, lymphadenopathy Respiratory exam: Present: normal lung sounds bilaterally. Absent: respiratory distress, wheezes, rales, rhonchi, stridor Cardiovascular Exam: Present: regular rate, normal rhythm, normal heart sounds. Absent: systolic murmur, diastolic murmur, rubs, gallop, clicks GI/Abdominal exam: Present: soft, tenderness, normal bowel sounds. Absent: distended, guarding, rebound, rigid Course Vital Signs 04/18/24 04/18/24 09:21 11:19 Temperature 97.7 F 98.1 F Pulse Rate 69 72 Respiratory 20 18 Rate Blood Pressure 174/76 136/72 O2 Sat by Pulse 100 97 Oximetry Medical Decision Making - Medical Decision Making Was pt. sent in by a medical professional or institution (, PA, OUTSIDE DEALER SALES REPRESENTATIVE, urgent care, hospital, or care home...) When possible be specific @ -No Did you speak to anyone other than the patient for history (EMS, parent, family, police, friend...)? What history was obtained from this source @ -No Did you review nursing and triage notes (agree or disagree)? Why? @ -I reviewed and agree with nursing and triage notes Were old charts reviewed (outside hosp., previous admission, EMS record, old EKG, old radiological studies, urgent care reports/EKG's, care home records)? Report findings @ -No old charts were reviewed Differential Diagnosis (chest pain, altered mental status, abdominal pain women, abdominal pain men, vaginal bleeding, weakness, fever, dyspnea, syncope, headache, dizziness, GI bleed, back pain, seizure, CVA, palpatations, mental health, musculoskeletal)? @ -UTI, catheter malfunction EKG interpreted by me (3pts min.). @ -None X-rays interpreted by me (1pt min.). @ -None done CT interpreted by me (1pt min.). @ -None done U/S interpreted by me (1pt. min.). @ -None done What testing was considered but not performed or refused? (CT, X-rays, U/S, labs)? Why? @ -None What meds were considered but not given or refused? Why? @ -None Did you discuss the management of the patient with other professionals (professionals i.e. , PA, OUTSIDE DEALER SALES REPRESENTATIVE, lab, RT, psych nurse, delinquency prevention social worker, mat making machine tender, teacher, seal delivery vehicle officer, case reviewer)? Give summary @ -No Was smoking cessation discussed for >3mins.? @ -No Was critical care preformed (if so, how long)? @ -No Were there social determinants of health that impacted care today? How? (Homelessness, low income, unemployed, alcoholism, drug addiction, transportation, low edu. Level, literacy, decrease access to med. care, detention, rehab)? @ -No Was there de-escalation of care discussed even if they declined (Discuss DNR or withdrawal of care, Hospice)? DNR status @ -No What co-morbidities impacted this encounter? (DM, HTN, Smoking, COPD, CAD, Cancer, CVA, ARF, Chemo, Hep., AIDS, mental health diagnosis, sleep apnea, morb id obesity)? @ -None Was patient admitted / discharged? Hospital course, mention meds given and route, prescriptions, significant lab abnormalities, going to OR and other pertinent info. @ -Discharge catheter was exchanged by RN with no complications. Patient feels improved. Patient does have moderate amount of bacteria within the urinalysis this may be colonized urine though this will be cultured and treated until otherwise proven. Undiagnosed new problem with uncertain prognosis? @ -No Drug Therapy requiring intensive monitoring for toxicity (Heparin, Nitro, Insulin, Cardizem)? @ -No Were any procedures done? @ -No Diagnosis/symptom? @ -UTI, catheter malfunction Acute, or Chronic, or Acute on Chronic? @ -Acute Uncomplicated (without systemic symptoms) or Complicated (systemic symptoms)? @ -Uncomplicated Side effects of treatment? @ -No Exacerbation, Progression, or Severe Exacerbation? @ -No Poses a threat to life or bodily function? How? (Chest pain, [place], [place], pneumonia, PE, COPD, DKA, ARF, appy, cholecystitis, CVA, Diverticulitis, Homicidal, Suicidal, threat to staff... and all critical care pts) @ -No - Lab Data Lab Results 07/17/24 Range/Units 10:00 Urine Color Light Yellow Urine Appearance Cloudy (Clear) Urine pH 7.5 (5.0-8.0) Ur Specific [place] 1.020 (1.001-1.035) Urine Protein 1+ H (Negative) Urine Glucose (UA) Negative (Negative) Urine Ketones 1+ H (Negative) Urine Blood Negative (Negative) Urine Nitrite Positive (Negative) Urine Bilirubin Negative (Negative) Urine Urobilinogen <2.0 (<2.0) mg/dL Ur Leukocyte Esterase Large H (Negative) Urine RBC 6 H (0-5) /hpf Urine WBC >182 H (0-5) /hpf Urine WBC Clumps Few H (None) /hpf Ur Squamous Epith Cells <1 (0-4) /hpf Triple Phos Crystals Rare H (None) /hpf Urine Bacteria Rare H (None) /hpf Urine Mucus Rare H (None) /hpf Disposition Clinical Impression: Complication of Mohan catheter, UTI (urinary tract infection) Disposition: HOME SELF-CARE Condition: Stable Instructions (If sedation given, give patient instructions): Urinary Tract Infection in Men (ED) Additional Instructions: Please return to the Emergency Department if symptoms worsen or any other concerns. Prescriptions: Cephalexin [Keflex] 500 mg PO Q8HR #21 cap Is patient prescribed a controlled substance at d/c from ED?: No Referrals: [facility],Clinic [Primary Care Provider] - 1-2 days Time of Disposition: 11:11
[2024-04-18 10:31] LABS: Appearance,Urine Cloudy (Clear); Bacteria,Urine Rare /hpf; Bilirubin,Urine Negative (Negative); Blood,Urine Negative (Negative); Color,Urine Light Yellow; Glucose,Urine (UA) Negative (Negative); Ketones,Urine 1+ (Negative); Leukocyte Esterase,Urine Large (Negative); Mucus,Urine Rare /hpf; Nitrite,Urine Positive (Negative); PH, Urine 7.5 (5.0-8.0); Protein,Urine 1+ (Negative); RBC,Urine 6 /hpf (0-5); Squamous Epithelial Cell,Urine <1 /hpf (0-4); Triple Phosphate Crystal,Urine Rare /hpf; Urobilinogen,Urine <2.0 mg/dL (<2.0); WBC,Urine >182 /hpf (0-5)
[2024-04-18 11:21] VITALS: BP 136/72; PULSE 72; RESP 18; TEMP 98.1
== END 2024-04-18 11:34 | disposition home or self-care (01) ==
LOC: EC 09:19
DX: T83.098A Other mechanical complication of other urinary catheter, initial encounter (principal); N39.0 Urinary tract infection, site not specified; Z88.8 Allergy status to other drugs, medicaments and biological substances; Z87.891 Personal history of nicotine dependence; Y73.8 Miscellaneous gastroenterology and urology devices associated with adverse incidents, not elsewhere classified
CPT/HCPCS: 51702; 51798; 81001; 87086; 99283; 99284

== ENCOUNTER 2024-05-09 02:00 | Emergency (ER) | payer MEDICARE, BC | END 2024-05-09 03:09 | disposition home or self-care (01) | LOC: EC 02:00 | DX: R33.9 Retention of urine, unspecified (principal); Z87.891 Personal history of nicotine dependence | CPT/HCPCS: 51702; 51798; 99283 ==

== ENCOUNTER 2024-05-16 15:05 | Emergency (ER) | payer MEDICARE, BC ==
[2024-05-16] MEDS ORDERED: cefTRIAXone 2 GM VIAL ONE (16:40)
[2024-05-16] MEDS ORDERED: SODIUM CHLORIDE 0.9% 1,000 ML BAG ONE (17:05)
[2024-05-16] MEDS ORDERED: SODIUM CHLORIDE 0.9% 50 ML BAG IV ONE (17:05)
[2024-05-16] MEDS ORDERED: AMOXIC-POT CLAV 875-125MG 1 EACH TAB ONE (22:06)
--- NOTE | 2024-06-19 13:16 | CT ---
[id number] STERLING RIVERA : 1940 EXAM: CT abdomen pelvis without contrast. DATE: 05/16/2024 18:40 INDICATION: UTI /FEVER COMPARISON: None, please note PACS downtime occurred during the radiologist interpretation of these i mages with limited priors/reports.. TECHNIQUE: CT abdomen pelvis without contrast., with axial imaging and sagittal and coronal reformats without IV or oral contrast. Lack of IV or oral contrast limits evaluation of solid and hollow organ viscera.. One or more CT dose reduction strategies were utilized during this examination. Total DLP administere d was 429 mGycm. FINDINGS: LOWER CHEST: Unremarkable ABDOMEN LIVER: Large hepatic cyst measuring up to 10.7 x 9.9 cm. GALLBLADDER AND BILE DUCTS: Unremarkable. PANCREAS: Unremarkable. SPLEEN: Unremarkable. ADRENAL GLANDS: Unremarkable. KIDNEYS AND URETERS: No evidence of hydronephrosis or renal calculus. Is prominence of the collecting system Mild hydronephrosis bilaterally with fat stranding around the renal collecting system. No obs tructive calculus visualized. Perinephric fat stranding bilaterally. PELVIS BLADDER: Decompressed with Reyna catheter in place gas within the lumen. Multiple calcifications are present. Fat stranding on the bladder lumen. REPRODUCTIVE: Prostate is enlarged in size measuring 5.9 cm in transverse dimension. ABDOMEN & PELVIS STOMACH AND BOWEL: Stomach and duodenum are unremarkable. No evidence of bowel obstruction. PERITONEUM: No evidence of pneumoperitoneum or free fluid. VASCULATURE: No evidence of aortic aneurysm. MUSCULOSKELETAL: Mild disc degeneration changes are present throughout the thoracolumbar spine. Sever e degeneration changes around the hips with bone on bone articulation on the left hip. LYMPH NODES: No gross evidence for lymphadenopathy. SOFT TISSUE/ABDOMINAL WALL: Unremarkable IMPRESSION: 1. Decompressed bladder with the catheter in place. Fat stranding around the urinary bladder correla te with urinalysis for cystitis. 2. Multiple bladder stones are present. Fat stranding around the collecting system of the bladder co rrelate for ascending infection. 3. Prostatomegaly correlate with serum PSA. 4. Fat stranding also around the prostate gland correlate for prostatitis. 5. Colonic diverticulosis. [facility], , 06/19/2024 1:14 PM
== END 2024-05-16 22:20 | disposition home or self-care (01) ==
LOC: EC 15:05
CPT/HCPCS: 74176; 87040; 87077; 87086; 87186; 96361; 96365; 99285

== ENCOUNTER 2024-06-24 08:08 | Emergency (ER) | payer MEDICARE ==
[2024-06-24 08:15] VITALS: RESP 18; TEMP 98.5
--- NOTE | 2024-06-24 08:15 | ED ---
General Adult HPI - General Stated complaint: Urogenital Time Seen by Provider: 06/24/24 08:10 Source: patient, EMS, RN notes reviewed Mode of arrival: EMS Limitations: no limitations - History of Present Illness Initial comments: 83-year-old male presents emergency department with complaint of Mohan catheter complications. He states his catheter is not draining at all. He this is a frequent problem for this patient and states he has not been exchanged in the last month denies any fevers chills no flank pain states he has some lower abdominal pressure. Patient has a chronic Mohan. - Related Data Home Medications Medication Instructions Recorded Confirmed Cholecalciferol [Vitamin D3 (25 25 mcg PO DAILY 08/04/21 04/03/24 Mcg = 1000 Iu)] Divalproex ER [Depakote ER] 500 mg PO HS 08/04/21 04/03/24 Donepezil HCl [Aricept] 10 mg PO HS 08/04/21 04/03/24 Multivitamins, Thera [Multivitamin 1 tab PO DAILY 02/26/22 04/03/24 (formulary)] Rosuvastatin Calcium [Crestor] 20 mg PO DAILY 04/03/24 04/03/24 Sodium Chloride Irrig Solution 1 applic IRRIGATION DIRECTED PRN 04/03/24 04/03/24 [Sodium Chloride Irrig] Previous Rx's Medication Instructions Recorded Cephalexin [Keflex] 500 mg PO Q8HR #21 cap 04/18/24 Cephalexin [Keflex] 500 mg PO Q8HR #30 cap 06/24/24 Allergies Allergy/AdvReac Type Severity Reaction Status Date / Time atorvastatin [From Lipitor] Allergy Unknown Verified 04/18/24 09:25 Review of Systems ROS Statement: Those systems with pertinent positive or pertinent negative responses have been documented in the HPI. ROS Other: All systems not noted in ROS Statement are negative. Past Medical History Past Medical History: Hyperlipidemia, Prostate Disorder Additional Past Medical History / Comment(s): covid fall 2020,chronic mohan needs to be 19 [place] per [place] physician Dr. Joseph History of Any Multi-Drug Resistant Organisms: MRSA Date of last positivie culture/infection: 03/27/23 MDRO Source:: Urine Additional Past Surgical History / Comment(s): KIDNEY STONES. Bilateral foot surgery Past Psychological History: No Psychological Hx Reported Smoking Status: Former smoker Past Alcohol Use History: None Reported Past Drug Use History: None Reported - Past Family History Mother Family Medical History: Unable to Obtain General Exam Limitations: no limitations General appearance: alert, in no apparent distress Head exam: Present: atraumatic, normocephalic, normal inspection Eye exam: Present: normal appearance, PERRL, EOMI. Absent: scleral icterus, conjunctival injection, periorbital swelling Respiratory exam: Present: normal lung sounds bilaterally. Absent: respiratory distress, wheezes, rales, rhonchi, stridor Cardiovascular Exam: Present: regular rate, normal rhythm, normal heart sounds. Absent: systolic murmur, diastolic murmur, rubs, gallop, clicks GI/Abdominal exam: Present: soft, normal bowel sounds. Absent: distended, tenderness, guarding, rebound, rigid Back exam: Absent: CVA tenderness (R), CVA tenderness (L) Skin exam: Present: warm, dry, intact, normal color. Absent: rash Course Vital Signs 06/24/24 08:10 Temperature 98.5 F Pulse Rate 91 Respiratory 18 Rate Blood Pressure 161/122 O2 Sat by Pulse 96 Oximetry Medical Decision Making - Medical Decision Making Was pt. sent in by a medical professional or institution (, PA, FUR SEWER, urgent care, hospital, or fdc...) When possible be specific @ -No Did you speak to anyone other than the patient for history (EMS, parent, family, police, friend...)? What history was obtained from this source @ -No Did you review nursing and triage notes (agree or disagree)? Why? @ -I reviewed and agree with nursing and triage notes Were old charts reviewed (outside hosp., previous admission, EMS record, old EKG, old radiological studies, urgent care reports/EKG's, fdc records)? Report findings @ -[Prior urinalysis, urine culture Differential Diagnosis (chest pain, altered mental status, abdominal pain women, abdominal pain men, vaginal bleeding, weakness, fever, dyspnea, syncope, headache, dizziness, GI bleed, back pain, seizure, CVA, palpatations, mental health, musculoskeletal)? @ -Mohan catheter complication, UTI EKG interpreted by me (3pts min.). @ -None X-rays interpreted by me (1pt min.). @ -None done CT interpreted by me (1pt min.). @ -None done U/S interpreted by me (1pt. min.). @ -None done What testing was considered but not performed or refused? (CT, X-rays, U/S, labs)? Why? @ -None What meds were considered but not given or refused? Why? @ -None Did you discuss the management of the patient with other professionals (professionals i.e. Dr., PA, FUR SEWER, lab, RT, psych nurse, vp digital marketing social media and crm, senior electronics design engineer, teacher, retail loan officer, business case analyst)? Give summary @ -No Was smoking cessation discussed for >3mins.? @ -No Was critical care preformed (if so, how long)? @ -No Were there social determinants of health that impacted care today? How? (Homelessness, low income, unemployed, alcoholism, drug addiction, transportation, low edu. Level, literacy, decrease access to med. care, assisted, rehab)? @ -No Was there de-escalation of care discussed even if they declined (Discuss DNR or withdrawal of care, Hospice)? DNR status @ -No What co-morbidities impacted this encounter? (DM, HTN, Smoking, COPD, CAD, Cancer, CVA, ARF, Chemo, Hep., AIDS, mental health diagnosis, sleep apnea, morbid obesity)? @ -None Was patient admitted / discharged? Hospital course, mention meds given and route, prescriptions, significant lab abnormalities, going to OR and other pertinent info. @ -Disc Mohan catheter was exchanged, patient's catheter is draining well patient is discharged in stable condition with close follow-up. Undiagnosed new problem with uncertain prognosis? @ -No Drug Therapy requiring intensive monitoring for toxicity (Heparin, Nitro, Insulin, Cardizem)? @ -No Were any procedures done? @ -No Diagnosis/symptom? @ -Mohan catheter complication Acute, or Chronic, or Acute on Chronic? @ -Acute Uncomplicated (without systemic symptoms) or Complicated (systemic symptoms)? @ -Uncomplicated Side effects of treatment? @ -No Exacerbation, Progression, or Severe Exacerbation? @ -No Poses a threat to life or bodily function? How? (Chest pain, [place], [place], pneumonia, PE, COPD, DKA, ARF, appy, cholecystitis, CVA, Diverticulitis, Homicidal, Suicidal, threat to staff... and all critical care pts) @ -No - Lab Data Lab Results 09/22/24 Range/Units 08:47 Urine Color Light Yellow Urine Appearance Turbid (Clear) Urine pH 8.5 H (5.0-8.0) Ur Specific [place] 1.017 (1.001-1.035) Urine Protein 3+ H (Negative) Urine Glucose (UA) Negative (Negative) Urine Ketones Trace H (Negative) Urine Blood Small H (Negative) Urine Nitrite Positive (Negative) Urine Bilirubin Negative (Negative) Urine Urobilinogen <2.0 (<2.0) mg/dL Ur Leukocyte Esterase Large H (Negative) Urine RBC 61 H (0-5) /hpf Urine WBC 137 H (0-5) /hpf Urine WBC Clumps Occasional H (None) /hpf Urine Bacteria Few H (None) /hpf Urine Yeast (Budding) Few H (None) /hpf Disposition Clinical Impression: Complication of Mohan catheter, UTI (urinary tract infection) Disposition: HOME SELF-CARE Condition: Stable Instructions (If sedation given, give patient instructions): Urinary Tract Infection in Men (ED) Additional Instructions: Please return to the Emergency Department if symptoms worsen or any other concerns. Prescriptions: Cephalexin [Keflex] 500 mg PO Q8HR #30 cap Is patient prescribed a controlled substance at d/c from ED?: No Referrals: [facility] [Primary Care Provider] - 1-2 days Time of Disposition: 09:44
[2024-06-24 09:39] LABS: Appearance,Urine Turbid (Clear); Bacteria,Urine Few /hpf; Bilirubin,Urine Negative (Negative); Blood,Urine Small (Negative); Budding Yeast,Urine Few /hpf; Color,Urine Light Yellow; Glucose,Urine (UA) Negative (Negative); Ketones,Urine Trace (Negative); Leukocyte Esterase,Urine Large (Negative); Nitrite,Urine Positive (Negative); PH, Urine 8.5 (5.0-8.0); Protein,Urine 3+ (Negative); RBC,Urine 61 /hpf (0-5); Specific Gravity,Urine 1.017 (1.001-1.035); Urobilinogen,Urine <2.0 mg/dL (<2.0); WBC,Urine 137 /hpf (0-5)
[2024-06-24] MEDS: cefTRIAXone 1,000 MG VIAL (IM USE) IM STA (10:36)
[2024-06-24 10:42] VITALS: BP 125/70; PULSE 78
== END 2024-06-24 10:42 | disposition home or self-care (01) ==
LOC: EC 08:08
CPT/HCPCS: 51702; 81001; 87077; 87086; 87186; 96372; 99283

== ENCOUNTER → 2024-08-13 | Outpatient (CLI) | payer OTHER ==
--- NOTE | 2024-08-13 11:32 | CT ---
EXAMINATION TYPE: CT brain wo con CT DLP: 1241.30 mGycm, Automated exposure control for dose reduction was used. DATE OF EXAM: 08/13/2024 11:23 AM COMPARISON: Prior CT Brain from 11/30/2023. CLINICAL INDICATION:Male, 83 years old with history of F03.C0 SEVERE DEMENTIA, Severe dementia TECHNIQUE: Brain: Multiple axial CT images of the brain were obtained without IV contrast. . Coronal and sagitta l reformats reviewed. FINDINGS: Brain: Extra-axial spaces: No abnormal extra-axial fluid collections. Ventricular system: Dilatation in proportion to cerebral atrophy. Cerebral parenchyma: Moderate diffuse cerebral volume loss redemonstrated. No acute intraparenchymal hemorrhage or mass effect. The harrison-white junction is well differentiated. Scattered hypoattenuating areas are seen within the periventricular white matter. Cerebellum: Unremarkable. Mass effect: No evidence of midline shift. Intracranial vasculature: Atherosclerotic calcifications of the intracranial vessels. Soft tissues: Normal. Calvarium/osseous structures: No depressed skull fracture. Paranasal sinuses and mastoid air cells: Stable probable right anterior maxillary sinus 1.1 cm mucous retention cyst. Remaining paranasal sinuses are clear. Mastoid air cells are clear. Visualized orbits: Orbital contents are intact. IMPRESSION: 1. No acute intracranial process or significant change from prior. 2. Similar moderate cerebral cortical atrophy with nonspecific white matter changes, likely secondar y to chronic small vessel ischemic disease. [facility], , 08/13/2024 11:30 AM
--- NOTE | 2024-08-13 11:50 | CT ---
EXAMINATION TYPE: CT chest wo con CT DLP: 236.70 mGycm, Automated exposure control for dose reduction was used. 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 Lack of IV or o ral contrast limits evaluation of solid and hollow organ viscera. . Coronal and sagittal reformats re viewed. FINDINGS: LUNGS/ PLEURA: Mild emphysematous change. Similar prominent reticular, patchy, groundglass changes in the periphery of the mid and lower lungs with some changes extending to the right upper lung. No ple ural effusion or pneumothorax. Chronic elevation of the right hemidiaphragm. Calcified granuloma post erior right upper lobe redemonstrated. Stable subpleural right apical posterior pulmonary nodule tim uring 5.7 mm (series 4, image 5). No new or enlarging pulmonary nodules. AIRWAY: Patent and unremarkable.. HEART: Size within normal limits. No pericardial effusion. Moderate coronary artery calcifications. MEDIASTINUM: No gross evidence of adenopathy. Stable anterior mediastinal cyst measuring up to 1.4 cm cyst. VASCULATURE: No aortic aneurysm. Stable ectatic aortic root at 3.9 cm. Mild vascular calcification o f the aortic arch and its branches. MUSCULOSKELETAL: No acute osseous abnormalities. Moderate degenerative disc disease of the mid to low er thoracic spine. Stable scarring focus within the left lateral seventh rib. Likely benign bone leda nd. SOFT TISSUES/LYMPH NODES: Unremarkable. LOWER NECK: No significant findings. UPPER ABDOMEN: Redemonstration of enlarged partially visualized inferior right hepatic lobe cyst tim uring up to 11.2 cm. Additional stable right hepatic lobe 0.9 cm cyst. Suspected parapelvic cysts of the right kidney again measuring up to 1.6 cm. IMPRESSION: 1. Stable prominent stranding/reticular and groundglass densities along the periphery of the mid to lower lungs with some extension into the right upper lung. Favored to represent interstitial scarring . 2. Stable right apical 5.7 mm subpleural pulmonary nodule. No new or enlarging pulmonary nodules. Fo llow-up CT chest in one year is recommended. 3. Stable ectasia of the aortic root measures 3.9 cm. [facility], , 08/13/2024 11:48 AM
== END | disposition home or self-care (01) ==
LOC: RADCTMAIN 10:44
PROVIDERS: ATTEND Internal Medicine
DX: I71.20 Thoracic aortic aneurysm, without rupture, unspecified (principal); F03.C0 Unspecified dementia, severe, without behavioral disturbance, psychotic disturbance, mood disturbance, and anxiety; G31.9 Degenerative disease of nervous system, unspecified; J98.4 Other disorders of lung; R91.1 Solitary pulmonary nodule; I70.0 Atherosclerosis of aorta
CPT/HCPCS: 70450; 71250